=== PATIENT | male | born 1995 | race American Indian/Alaskan Native ===

== ENCOUNTER 2016-08-08 01:20 | Inpatient (IN) | payer MEDICAID ==
--- NOTE | 2016-08-08 02:13 | ED PDOC ---
Arrival/HPI - General Chief Complaint: Psychiatric Evaluation Time Seen by Provider: 08/08/16 01:49 Historian: Patient - History of Present Illness Narrative History of Present Illness (Text): 08/08/16 02:13 Bryan Ray is a 21 year old male, whose past medical history includes paranoid schizophrenia, who presents to the Emergency department complaining of paranoia. Patient states he has been feeling increasingly paranoid lately, but is unable to elaborate as to why. Patient states is supposed to be taking Zyprexa, but states he has not taken it in over 1 year. Patient denies any suicidal ideation, homicidal ideation, auditory/visual hallucinations, fever, chills, chest pain, shortness of breath, nausea, vomiting, diarrhea, urinary symptoms, back pain, neck pain, headache, dizziness, or any other complaints. Symptom Onset: Gradual Symptom Course: Unchanged Activities at Onset: Light Context: Home Past Medical History - Provider Review Nursing Documentation Reviewed: Yes - Psychiatric Hx Psychophysiologic Disorder: Yes Hx Schizophrenia: Yes (paranoid) Hx Substance Use: No Family/Social History - Physician Review Nursing Documentation Reviewed: Yes Family/Social History: No Known Family HX Smoking Status: Never Smoked Hx Alcohol Use: No Hx Substance Use: No Allergies/Home Meds Allergies/Adverse Reactions: Allergies No Known Allergies Allergy (Verified 08/08/16 01:30) Home Medications: Home Meds Medication Instructions Recorded Confirmed OLANZapine [Zyprexa] 08/08/16 Review of Systems - Physician Review All systems were reviewed & negative as marked: Yes - Review of Systems Constitutional: Normal. absent: Fevers Eyes: Normal ENT: Normal Respiratory: Normal. absent: SOB, Cough Cardiovascular: Normal. absent: Chest Pain Gastrointestinal: Normal. absent: Abdominal Pain, Diarrhea, Nausea, Vomiting Genitourinary Male: Normal. absent: Dysuria, Frequency, Hematuria, Urinary Output Changes Musculoskeletal: Normal. absent: Back Pain, Neck Pain Skin: Normal. absent: Rash Neurological: Normal. absent: Headache, Dizziness Endocrine: Normal Hemo/Lymphatic: Normal Psychiatric: Normal. absent: Suicidal Ideation, Other ((-)homicidal ideation, ( -)halluncinations) Physical Exam Vital Signs Reviewed: Yes Vital Signs Temp Pulse Resp BP Pulse Ox 08/08/16 02:49 99.0 F 94 H 16 150/82 100 Temperature: Afebrile Blood Pressure: Normal Pulse: Regular Respiratory Rate: Normal Appearance: Positive for: Well-Appearing, Non-Toxic, Comfortable Pain Distress: None Mental Status: Positive for: Alert and Oriented X 3 - Systems Exam Head: Present: Atraumatic, Normocephalic Pupils: Present: PERRL Extroacular Muscles: Present: EOMI Conjunctiva: Present: Normal Mouth: Present: Moist Mucous Membranes Neck: Present: Normal Range of Motion Respiratory/Chest: Present: Clear to Auscultation, Good Air Exchange. No: Respiratory Distress, Accessory Muscle Use Cardiovascular: Present: Regular Rate and Rhythm, Normal S1, S2. No: Murmurs Abdomen: Present: Normal Bowel Sounds. No: Tenderness, Distention, Peritoneal Signs Back: Present: Normal Inspection Upper Extremity: Present: Normal Inspection. No: Cyanosis, Edema Lower Extremity: Present: Normal Inspection. No: Edema Neurological: Present: GCS=15, CN II-XII Intact, Speech Normal Skin: Present: Warm, Dry, Normal Color. No: Rashes Psychiatric: Present: Alert, Oriented x 3, Normal Insight, Normal Concentration Medical Decision Making ED Course and Treatment: 08/08/16 02:13 Impression: 21 year old male complaining of paranoia. Plan: -- EKG -- Chest X-ray -- Labs, alcohol level, lipase -- Urinalysis, urine drug screen -- Reassess and disposition Progress Notes: Reviewed EKG, sinus tachycardia at [address] LVH. Non-specific ST/T wave changes. Normal intervals. Normal axis. 08/08/16 04:17 Labs showing CPK > 6800 c/w rhabdomyolysis - unable to clear medically. 08/08/16 06:[address] Espinoza for admission to the hospitalist service. - Lab Interpretations Lab Results: 08/08/16 02:50 08/08/16 02:50 Lab Results 08/08/16 03:10: Urine Color Yellow, Urine Appearance Sl cloudy, Urine pH 6.0, Ur Specific [place] >= 1.030, Urine Protein Trace H, Urine Glucose (UA) Negative , Urine Ketones 15 H, Urine Blood Negative, Urine Nitrate Negative, Urine Bilirubin Negative, Urine Urobilinogen 0.2, Ur Leukocyte Esterase Negative, Urine RBC 0 - 2, Urine WBC 0 - 2, Ur Epithelial Cells 0 - 2, Urine Bacteria Rare , Urine Other Mucus, Urine Opiates Screen Negative, Urine Methadone Screen Negative, Ur Barbiturates Screen Negative, Ur Phencyclidine Scrn Negative, Ur Amphetamines Screen Negative, U Benzodiazepines Scrn Negative, U Oth Cocaine Metabols Negative, U Cannabinoids Screen Negative 08/08/16 02:50: WBC 10.7, RBC 4.63, Hgb 14.6, Hct 41.3 L, MCV 89.2, MCH 31.5, MCHC 35.4, RDW 12.7, Plt Count 229, MPV 10.7, Gran % 73.7 H, Lymph % (Auto) 18.8 L, [place] % (Auto) 6.4 H, Eos % (Auto) 0.9 L, Baso % (Auto) 0.2, Gran # 7.89 H, Lymph # 2.0, [place] # 0.7 H, Eos # 0.1, Baso # 0.02, Sodium 143, Potassium 4.0 , Chloride 106, Carbon Dioxide 23, Anion Gap 18, BUN 21, Creatinine 1.1, Est GFR ( Amer) > 60, Est GFR (Non-Af Amer) > 60, Random Glucose 89, Calcium 9.4, Total Bilirubin 0.9, AST 139 H, ALT 69 H, Alkaline Phosphatase 59, Total Creatine Kinase 6814 H, CK-MB (CK-2) 10.6 H, CK-MB (CK-2) % 0.2 L, Total Protein 7.7, Albumin 4.3, Globulin 3.4, Albumin/Globulin Ratio 1.3, Lipase 120, Alcohol, Quantitative < 10 I have reviewed the lab results: Yes - RAD Interpretation Radiology Orders: 08/08/16 01:50 CHEST PORTABLE [RAD] Stat [employer] Professor: ED Physician - EKG Interpretation Interpreted by ED Physician: Yes Type: 12 lead EKG - Medication Orders Current Medication Orders: Sodium Chloride (Sodium Chloride 0.9%) 2,000 mls @ 999 mls/hr IV .Q2H1M STA Stop: 08/08/16 08:21 Discontinued Medications Ziprasidone (Geodon Inj) 10 mg IM STAT STA PRN Reason: Protocol Stop: 08/08/16 04:18 Last Admin: 08/08/16 04:39 Dose: 10 MG Comments: Behavioural Document 08/08/16 04:39 TA (Rec: 04/13/17 04:40 TA [facility] [id number]) Maintenance Maintenance Dose No Nonmedicinal Nonmedicinal Interventions Redirect Behavior Behavior for Medication: Hallucinations/paranoid/ delusions/extreme fear IM Administration Charges Document 08/08/16 04:39 TA (Rec: 08/08/16 04:40 TA [facility] [id number]) Injection Site MAR Injection Site Left Deltoid Charges for Administration # of IM Administrations 1 - Scribe Statement The provider has reviewed the documentation as recorded by the Leobardo De La Vega Provider Attestation: All medical record entries made by the Elliotiblisa were at my direction and personally dictated by me. I have reviewed the chart and agree that the record accurately reflects my personal performance of the history, physical exam, medical decision making, and the department course for this patient. I have also personally directed, reviewed, and agree with the discharge instructions and disposition. Disposition/Present on Arrival - Present on Arrival Any Indicators Present on Arrival: No History of DVT/PE: No History of Uncontrolled Diabetes: No Urinary Catheter: No History of Decub. Ulcer: No History Surgical Site Infection Following: None - Disposition Have Diagnosis and Disposition been Completed?: Yes Diagnosis: Rhabdomyolysis, Paranoid schizophrenia Disposition: HOSPITALIZED Disposition Time: 06:30 Patient Plan: Admission Condition: FAIR
[2016-08-08 02:50] VITALS: O2SAT 100
[2016-08-08 02:57] LABS: ADD MANUAL DIFF? NO
[2016-08-08 03:03] LABS: BASO # 0.02 K/mm3 (0.0-2.0); BASO % 0.2 % (0.0-3.0); EOS # 0.1 (0.0-0.7); EOS % 0.9 % (1.5-5.0); GRAN # 7.89 (1.4-6.5); GRAN % 73.7 % (50.0-68.0); HEMATOCRIT 41.3 % (42.0-52.0); LYMPH % 18.8 % (22.0-35.0); MEAN CELL VOLUME 89.2 fL (80.0-105.0); MEAN CORPUSCULAR HEMOGLOBIN 31.5 pg (25.0-35.0); MEAN CORPUSCULAR HGB CONC 35.4 g/dl (31.0-37.0); MEAN PLATELET VOLUME 10.7 fl (7.0-11.0); MONO # 0.7 (0.1-0.6); MONO % 6.4 % (1.0-6.0); PLATELET COUNT 229 10^3/uL (120.0-450.0); RED CELL DISTRIBUTION WIDTH 12.7 % (11.5-14.5); WHITE BLOOD COUNT 10.7 10^3/ul (4.5-11.0)
[2016-08-08 03:19] LABS: ALB/GLOB RATIO 1.3 (1.1-1.8); ALKALINE PHOSPHATASE 59 U/L (38-133); ALT/SGPT 69 U/L (7-56); AST/SGOT 139 U/L (15-59); BILIRUBIN,TOTAL 0.9 mg/dL (0.2-1.3); BLOOD UREA NITROGEN 21 mg/dL (7-21); CALCIUM 9.4 mg/dL (8.4-10.5); CARBON DIOXIDE 23 mmol/L (21-33); CHLORIDE 106 mmol/L (95-110); GFR AFRICAN-AMERICAN > 60; GLUCOSE,RANDOM 89 mg/dL (70-110); LIPASE 120 U/L (23-300); SODIUM 143 mmol/L (132-148); TOTAL PROTEIN 7.7 g/dL (5.8-8.3)
[2016-08-08 03:36] LABS: URINE BILIRUBIN NEGATIVE (NEGATIVE); URINE BLOOD NEGATIVE (NEGATIVE); URINE GLUCOSE (UA) NEGATIVE (NEGATIVE); URINE KETONE 15 mg/dL (NEGATIVE); URINE LEUKOCYTE ESTERASE NEGATIVE Leu/uL (NEGATIVE); URINE PROTEIN TRACE mg/dL (<30 mg/dL); URINE UROBILINOGEN 0.2 E.U./dL (<1 E.U./dL)
[2016-08-08 04:03] LABS: URINE APPEARANCE SL CLOUDY (CLEAR); URINE COLOR YELLOW (YELLOW)
[2016-08-08 04:06] LABS: URINE BACTERIA RARE (NEG); URINE EPITHELIAL CELLS 0 - 2 /hpf (0-5); URINE RBC 0 - 2 /hpf (0-2); URINE WBC 0 - 2 /hpf (0-6)
[2016-08-08] MEDS ORDERED: Sodium Chloride 0.9% 2,000 ML IV STA (06:21)
--- NOTE | 2016-08-08 08:03 | CP.PCM.HP ---
<Gaurav Carey - Last Filed: 08/08/16 16:15> History of Present Illness - History of Present Illness History of Present Illness: Patient is a 21 y/o M with PMHx of paranoid schizophrenia who presented to the ED with complaint of paranoia. He states he was treated at [facility] [place] [place] and normally takes Zyprexa for his paranoia but has not taken it for 3-4 days. He says his paranoia and auditory hallucinations started again about 2 days ago. He states he recognizes multiple voices as family members and that they "tell me to get help." He reports not eating much or drinking much water. He denies any alcohol, tobacco, or substance abuse. He Also denies any SI/HI, visual hallucinations, fever, chills, chest pain, SOB, nausea, vomiting, or diarrhea. PMD: None Psychiatrist: Dr. Casas Medical hx: paranoid schizophrenia Surgical hx: none Allergies: NKDA Social hx: lives with family, denies alcohol tobacco or drug use Family hx: DM, HTN Present on Admission - Present on Admission Any Indicators Present on Admission: No Review of Systems - Constitutional Constitutional: absent: Chills, Fever - EENT Eyes: absent: Change in Vision Ears: absent: Decreased Hearing Nose/Mouth/Throat: absent: Dysphagia, Neck Mass - Cardiovascular Cardiovascular: absent: Chest Pain, Dyspnea - Respiratory Respiratory: absent: Cough, Dyspnea - Gastrointestinal Gastrointestinal: absent: Abdominal Pain, Constipation, Diarrhea, Nausea, Vomiting - Genitourinary Genitourinary: absent: Dysuria - Musculoskeletal Musculoskeletal: absent: Back Pain, Neck Pain, Numbness, Tingling - Integumentary Integumentary: absent: Rash, Wounds - Neurological Neurological: absent: Headaches, Vertigo, Weakness - Psychiatric Psychiatric: Auditory Hallucinations, Paranoia. absent: Homicidal Ideation, Suicidal Ideation, Visual Hallucinations - Endocrine Endocrine: absent: Change in Body Appearance Past Patient History - Infectious Disease Hx of Infectious Diseases: None - Tetanus Immunizations Tetanus Immunization: Unknown - Past Medical History & Family History Past Medical History?: Yes - Past Social History Smoking Status: Never Smoked Alcohol: None Drugs: Denies Home Situation {Lives}: With Family - CARDIAC Hx Cardiac Disorders: No Hx Hypertension: No - PULMONARY Hx Tuberculosis: No - NEUROLOGICAL HX Cerebrovascular Accident: No Hx Seizures: No - HEMATOLOGICAL/ONCOLOGICAL Hx Cancer: No Hx Human Immunodeficiency Virus (HIV): No - GENITOURINARY/GYNECOLOGICAL Hx Sexually Transmitted Disorders: No - PSYCHIATRIC Hx Psychophysiologic Disorder: Yes Hx Schizophrenia: Yes (paranoid) Hx Substance Use: No Meds Allergies/Adverse Reactions: Allergies Allergy/AdvReac Type Severity Reaction Status Date / Time No Known Allergies Allergy Verified 08/08/16 01:30 Physical Exam - Constitutional Appears: No Acute Distress, Other (responding to command hallucinations) Additional comments: tall and thin with large hands and fingers - Head Exam Head Exam: ATRAUMATIC, NORMOCEPHALIC - Eye Exam Eye Exam: EOMI, Normal appearance, PERRL. absent: Conjunctival injection, Scleral icterus Pupil Exam: NORMAL ACCOMODATION, PERRL - ENT Exam ENT Exam: Mucous Membranes Moist. absent: Normal Oropharynx (poor dentition) - Neck Exam Neck exam: Positive for: Normal Inspection. Negative for: Tenderness, Thyromegaly - Respiratory Exam Respiratory Exam: Clear to Auscultation Bilateral, NORMAL BREATHING PATTERN. absent: Rales, Rhonchi, Wheezes - Cardiovascular Exam Cardiovascular Exam: REGULAR RHYTHM, +S1, +S2. absent: Gallop, Rubs, Systolic Murmur - GI/Abdominal Exam GI & Abdominal Exam: Normal Bowel Sounds, Soft. absent: Distended, Rigid, Tenderness - Extremities Exam Extremities exam: Positive for: normal capillary refill, pedal pulses present. Negative for: normal inspection (long thin extremities and phalanges), tenderness - Back Exam Back exam: NORMAL INSPECTION. absent: rash noted, tenderness - Neurological Exam Neurological exam: Alert, CN II-XII Intact, Oriented x3 - Psychiatric Exam Psychiatric exam: Flat Affect Additional comments: responding to internal stimuli, tilts head to listen to voices - Skin Skin Exam: Dry, Intact, Warm Results - Vital Signs Recent Vital Signs: Last Vital Signs Temp 99.0 F 08/08/16 02:49 Pulse 94 H 08/08/16 02:49 Resp 16 08/08/16 02:49 BP 150/82 08/08/16 02:49 Pulse Ox 100 08/08/16 02:49 - Labs Result Diagrams: 08/08/16 02:50 08/08/16 02:50 Assessment & Plan - Assessment and Plan (Free Text) Assessment: 21 y/o M with pmhx of paranoid schizophrenia presents with paranoia and auditory hallucinations. Found to have elevated liver enzymes and creatinine kinase. Plan: 1) Paranoid schizophrenia * Psychiatry consulted, help appreciated * Started on Risperdal 0.25mg PO AMHS * Ativan 0.25mg AMHS * Geodon 10mg IM for agitation- 1 dose given in ER * 1:1 sitter 2) Rhabdomyolysis * Initial TCK 6814 * Started on IVF hydration of 150mls/ hr * on telemetry * monitor electrolytes * recheck in AM 3) Transaminitis * possibly medication induced * hepatitis panel ordered * possibly due to dehydration * recheck in AM 4) PPX: * Zofran * Protonix * Ibuprofen Assessment and plan discussed with attending physician. <Nasima Resendiz - Last Filed: 08/08/16 17:21> Results - Vital Signs Recent Vital Signs: Last Vital Signs Temp 99.0 F 08/08/16 02:49 Pulse 94 H 08/08/16 02:49 Resp 20 08/08/16 10:41 BP 150/82 08/08/16 02:49 Pulse Ox 100 08/08/16 02:49 - Labs Result Diagrams: 08/08/16 02:50 08/08/16 02:50 Labs: Laboratory Results - last 24 hr 08/08/16 07:00 Hepatitis A IgM Ab Negative Hep Bs Antigen Negative Hep B Core IgM Ab Negative Hepatitis C Antibody Negative Attending/Attestation - Attestation I have personally seen and examined this patient.: Yes I have fully participated in the care of the patient.: Yes I have reviewed all pertinent clinical information: Yes Notes (Text): 08/08/16 17:19 21 year old male with past medical history of paranoid schizophrenia who presents with complaint of auditory hallucinations. He was found to have rhabdomyolysis and transaminitis. Continue with iv fluids. Monitor electrolytes and LFTs closely. Hepatitis panel is ordered. Psychiatry evaluation was appreciated; started on risperdal and ativan. Will repeat labs in AM. Nasima Resendiz MD Hospitalist.
--- NOTE | 2016-08-08 09:26 | RAD ---
HISTORY: psych COMPARISON: No prior. FINDINGS: LUNGS: No active pulmonary disease. PLEURA: No significant pleural effusion identified, no pneumothorax apparent. CARDIOVASCULAR: Normal. OSSEOUS STRUCTURES: No significant abnormalities. VISUALIZED UPPER ABDOMEN: Normal. OTHER FINDINGS: None. IMPRESSION: No active disease.
[2016-08-08] MEDS: Sodium Chloride 0.9% 1,000 ML IV SCH ×2 (10:18→18:51)
[2016-08-08] MEDS: Pantoprazole 40 mg EC Tab PO SCH (10:18)
[2016-08-08 10:51] VITALS: RESP 20
[2016-08-08 10:54] VITALS: BMI 20.5
--- NOTE | 2016-08-08 11:31 | CARD ---
APPROVED REPORT EKG Measurement Heart [id number] [place] [id number] <Conclusion> Sinus tachycardia RVCD LVH by voltage may be a normal variant
--- NOTE | 2016-08-08 14:02 | CON ---
DATE: 08/08/2016 The patient is a 21-year-old male who has a history of paranoid schizophrenia, as we ll as prior psychiatric hospitalizations, though none noted at this facility, who presented to the Em ergency Room on 08/08/2016, early this morning, reporting increased paranoia. The patient was seen by overnight psychiatric nursing aide who recommended that the patient be hospitalized for his paranoia, a s he ____ thought-blocked and guarded. However, the patient was reluctant to sign in. During this t javier, his laboratory results returned and demonstrated markedly elevated total creatine kinase of 6814 . The patient was actually medically admitted for rhabdomyolysis. Etiology of the rhabdomyolysis is unclear at this time to this provider. However, I was requested to follow up on the patient due to his psychiatric symptoms. I met with the patient at bedside in the Emergency Room, and the patient appears to be guarded, inter adelita preoccupied, though superficially, cooperative. It was necessary to delicately review his hist ory and symptoms with him, as he did appear to be paranoid. He was not agitated. He did not appear to self-escalate, and he appeared to be agreeable to psychiatric management as well as medical manage ment. He told me that he came to the Emergency Room to get help, indicated that he felt like that he was hurting his family because of "the things that I do." When asked to elaborate, he indicates cj t his family was scared for him because of his behavior such as pacing, which generally gets his fami ly upset. He does not feel that his family is angry at him or trying to harm him, and indicates that he is here to receive help because he feels like that he is "hurting them with the things that I do. " The patient reports hallucinations, vague voices, cannot distinguish what they are saying, but he den ies having any command-type hallucinations. He denies any visual hallucinations. Regarding paranoia , he is agreeable. He indicates that he does have paranoia, but does not want to elaborate on this, does not feel like he is being persecuted in the Emergency Room, feels that he safe in the staff care . He denies having any thoughts to hurt others or himself. Presently, he does not feel depressed. He feels "okay." Does not appear to be actively hallucinating at this time, but as noted, he is guar ded and internally preoccupied, and his insight is considered to be poor. Judgment is considered to be fair. SOCIAL HISTORY: The patient was born and raised in [place]. He is single. He has no children. He lives with his mother. The patient reported he graduated high school. He is unemployed. He maribeth es any history of drug or alcohol issues. Denies ever being arrested. PSYCHIATRIC HISTORY: Regarding his psychiatric history, he indicates that he had been psychiatricall y hospitalized. However, "it has been a while." The patient reports his last hospitalization was 1- 2 years ago, and he has not been taking any medications since then. The patient reports a history of being treated with Zyprexa and Risperdal in the past. However, again, the patient states "it has be en a while." He denies history of suicide attempt. MEDICATIONS: Include ibuprofen 400 mg p.o. q. 6 p.r.n., Zofran 4 mg IV push q.6 p.r.n., Protonix 40 mg daily, and Geodon 10 mg IM q. 6 p.r.n. The patient received only 1 IM dose on 08/08 at 4:00 a.m. t deneen. VITAL SIGNS: Reviewed, and at 2:49 a.m., they were 99, 94, ____/82, and 16. LABORATORIES: Reviewed. CBC was generally within normal limits. There are no major derangements in white blood cell count, hemoglobin and hematocrit except for a mildly decreased hematocrit of 41.3. Platelets were within normal limits at 229. Chemistry profile was normal. Notably, LFTs showed an elevated AST of 139, ALT of 69. Total creatinine kinase is 6814. CK2 is 10.6. It is elevated. CK2 percent is 0.2, which is considered low. His UDS was negative. Urine showed trace protein. Ketone s were elevated at ____. ASSESSMENT: The patient has paranoid schizophrenia, as well as rhabdomyolysis, unclear etiology. RECOMMENDATIONS: We will start Risperdal 0.25 mg p.o. a.m. and at bedtime, and Ativan 0.25 mg a.m. a nd at bedtime. These are very conservative doses, and in consideration of patient's rhabdomyolysis, we will titrate carefully as he tolerates these, and determine the patient's tolerability to his medi cations. Please note that Risperdal does have a small risk of rhabdomyolysis in and of itself of les s than 1%. In consideration of the current medical situation and incipient symptoms, it is just anot her reason why I am ____ for this time the patient's medication. Psychiatry will continue to follow up with the patient and monitor his mental status in reaction to the medications prescribed. Leroy Pastrana MD cc: [id number] TT: 08/08/2016 13:10:39 Confirmation # [id number] Dictation # [id number] jn
[2016-08-09] MEDS: Sodium Chloride 0.9% 1,000 ML IV SCH ×3 (00:44→13:43)
[2016-08-09 07:55] LABS: HEMATOCRIT 40.4 % (42.0-52.0); MEAN CELL VOLUME 90.4 fL (80.0-105.0); MEAN CORPUSCULAR HEMOGLOBIN 31.1 pg (25.0-35.0); MEAN CORPUSCULAR HGB CONC 34.4 g/dl (31.0-37.0); MEAN PLATELET VOLUME 10.2 fl (7.0-11.0); RED CELL DISTRIBUTION WIDTH 12.9 % (11.5-14.5); WHITE BLOOD COUNT 7.5 10^3/ul (4.5-11.0)
[2016-08-09 08:20] LABS: ALB/GLOB RATIO 1.2 (1.1-1.8); ALKALINE PHOSPHATASE 49 U/L (38-133); ALT/SGPT 67 U/L (7-56); AST/SGOT 60 U/L (15-59); BILIRUBIN,TOTAL 0.8 mg/dL (0.2-1.3); BLOOD UREA NITROGEN 11 mg/dL (7-21); CALCIUM 8.7 mg/dL (8.4-10.5); CARBON DIOXIDE 24 mmol/L (21-33); CHLORIDE 107 mmol/L (98-107); GFR AFRICAN-AMERICAN > 60; GLUCOSE,RANDOM 83 mg/dL (70-110); POTASSIUM 4.1 mmol/L (3.6-5.0); SODIUM 140 mmol/L (132-148); TOTAL PROTEIN 7.1 g/dL (5.8-8.3)
[2016-08-09 08:40] VITALS: BP 140/86; TEMP 97.4
[2016-08-09] MEDS: Pantoprazole 40 mg EC Tab PO SCH (09:14)
--- NOTE | 2016-08-09 13:12 | CP.PCM.PCO ---
Addendum Addendum: 08/09/16 13:11 Risperdal switched to Zyprexa Am and HS. Appreciate nursing f/u, nursing spoke with patient's mother who indicated that patient had a bad reaction to risperdal in the past. Patient may be transferred to the psychiatric unit provided he signs consent. Patient would greatly benefit from inpatient treatment at this time due to disorganziation and paranoia.
--- NOTE | 2016-08-09 13:35 | CON ---
DATE: 08/09/2016 HISTORY OF PRESENT ILLNESS: The patient is a 21-year-old male with a history of chronic para noid schizophrenia, which psychiatrist is following on the medical floor while he is being treated fo r rhabdomyolysis. The patient was admitted to the Emergency Room complaining of paranoia, he was not ed to be thought blocked and guarded and paranoid. This provider started Risperdal at a very low dos e of 0.25 b.i.d., which he has been tolerating. However, he continues to be paranoid with some thoug ht blocking when I meet with him at bedside. The patient is a little bit more spontaneous and his fo cus is improved. He appeared to be a little bit less vague and less lost during my conversation with him; however, it is still difficult making a productive and informative interview with him. He does admit to being paranoid. He does admit to hallucinations currently. He also admits to paranoia abo ut his family but cannot really elaborate about this. What he does do is deny having any thoughts to harm himself or harm his family. He is tolerating current medication and in regards delusions the p atient does admit to delusions but he is unable or will not localize his type of paranoia he has. He indicates that he is willing to work with this provider and take medications that I prescribe for [facility] and for his family's peace of mind as he reported that he wanted to come to the [facility] for help due to their concern about his behavior. His insight is poor but his judgment is fair. Impulse control is tenuously intact, although this provider does think that he is a little unpredict able due to his psychosis at this time and would recommend 1:1 to continue. Recent labs were reviewed, so were vital signs. MEDICATIONS: Reviewed. Current psychiatric medications include Risperdal 1 mg a.m. and at bedtime, Geodon 10 mg IM q. 6 p.r.n. and Ativan total 0.25 mg a.m. and at bedtime. ASSESSMENT: Chronic paranoid schizophrenia symptomatic. RECOMMENDATIONS: Will continue Risperdal 1 mg a.m. and at bedtime and increase Ativan to 0.5 mg a.m. and at bedtime to help patient with thought blocking at this time. Continue Geodon 10 mg IM q. 6 ho urs p.r.n. and psychiatry will continue to follow up patient's mental status and monitor his psychoti c symptoms while he is medically hospitalized. I will also try to elicit patient's cooperation for rachel manzanares to the psychiatric unit once he is medically cleared. However, at this time, there are no ychiatric beds available. If the patient is unwilling to sign in, I would recommend a screening for patient once he is medically cleared if necessary. Leroy Pastrana MD cc: [id number] TT: 08/09/2016 13:34:17 Confirmation # [id number] Dictation # [id number] jn
[2016-08-09 15:13] VITALS: PULSE 81
--- NOTE | 2016-08-09 19:06 | CP.PCM.DIS ---
<Gaurav Carey - Last Filed: 08/10/16 06:29> Provider - Provider Date of Admission: 08/08/16 06:27 Attending physician: Nasima Resendiz MD Consults: Dr. Leroy Pastrana Time Spent in preparation of Discharge (in minutes): 45 Hospital Course - Lab Results Lab Results: Most Recent Lab Values WBC 7.5 10^3/ul (4.5-11.0) D 08/09/16 07:00 RBC 4.47 10^6/uL (3.5-6.1) 08/09/16 07:00 Hgb 13.9 gm/dL (14.0-18.0) L 08/09/16 07:00 Hct 40.4 % (42.0-52.0) L 08/09/16 07:00 MCV 90.4 fL (80.0-105.0) 08/09/16 07:00 MCH 31.1 pg (25.0-35.0) 08/09/16 07:00 MCHC 34.4 g/dl (31.0-37.0) 08/09/16 07:00 RDW 12.9 % (11.5-14.5) 08/09/16 07:00 Plt Count 220 10^3/uL (120.0-450.0) 08/09/16 07:00 MPV 10.2 fl (7.0-11.0) 08/09/16 07:00 Gran % 73.7 % (50.0-68.0) H 08/08/16 02:50 Lymph % (Auto) 18.8 % (22.0-35.0) L 08/08/16 02:50 [place]ink % (Auto) 6.4 % (1.0-6.0) H 08/08/16 02:50 Eos % (Auto) 0.9 % (1.5-5.0) L 08/08/16 02:50 Baso % (Auto) 0.2 % (0.0-3.0) 08/08/16 02:50 Gran # 7.89 (1.4-6.5) H 08/08/16 02:50 Lymph # 2.0 (1.2-3.4) 08/08/16 02:50 [place]ink # 0.7 (0.1-0.6) H 08/08/16 02:50 Eos # 0.1 (0.0-0.7) 08/08/16 02:50 Baso # 0.02 K/mm3 (0.0-2.0) 08/08/16 02:50 Sodium 140 mmol/L (132-148) 08/09/16 07:00 Potassium 4.1 mmol/L (3.6-5.0) 08/09/16 07:00 Chloride 107 mmol/L (98-107) 08/09/16 07:00 Carbon Dioxide 24 mmol/L (21-33) 08/09/16 07:00 Anion Gap 13 (10-20) 08/09/16 07:00 BUN 11 mg/dL (7-21) 08/09/16 07:00 Creatinine 0.9 mg/dL (0.5-1.4) 08/09/16 07:00 Est GFR ( Amer) > 60 08/09/16 07:00 Est GFR (Non-Af Amer) > 60 08/09/16 07:00 Random Glucose 83 mg/dL (70-110) 08/09/16 07:00 Calcium 8.7 mg/dL (8.4-10.5) 08/09/16 07:00 Total Bilirubin 0.8 mg/dL (0.2-1.3) 08/09/16 07:00 AST 60 U/L (15-59) H 08/09/16 07:00 ALT 67 U/L (7-56) H 08/09/16 07:00 Alkaline Phosphatase 49 U/L (38-133) 08/09/16 07:00 Total Creatine Kinase 1376 U/L (35-230) H 08/09/16 07:25 CK-MB (CK-2) 5.9 ng/mL (0.0-3.6) H 08/09/16 07:25 CK-MB (CK-2) % 0.4 % (2.5-3.0) L 08/09/16 07:25 Total Protein 7.1 g/dL (5.8-8.3) 08/09/16 07:00 Albumin 3.9 g/dL (3.0-4.8) 08/09/16 07:00 Globulin 3.2 gm/dL 08/09/16 07:00 Albumin/Globulin Ratio 1.2 (1.1-1.8) 08/09/16 07:00 Lipase 120 U/L (23-300) 08/08/16 02:50 Urine Color Yellow (YELLOW) 08/08/16 03:10 Urine Appearance Sl cloudy (CLEAR) 08/08/16 03:10 Urine pH 6.0 (4.7-8.0) 08/08/16 03:10 Ur Specific [place] >= 1.030 (1.005-1.035) 08/08/16 03:10 Urine Protein Trace mg/dL (<30 mg/dL) H 08/08/16 03:10 Urine Glucose (UA) Negative mg/dL (NEGATIVE) 08/08/16 03:10 Urine Ketones 15 mg/dL (NEGATIVE) H 08/08/16 03:10 Urine Blood Negative (NEGATIVE) 08/08/16 03:10 Urine Nitrate Negative (NEGATIVE) 08/08/16 03:10 Urine Bilirubin Negative (NEGATIVE) 08/08/16 03:10 Urine Urobilinogen 0.2 E.U./dL (<1 E.U./dL) 08/08/16 03:10 Ur Leukocyte Esterase Negative Zeferino/uL (NEGATIVE) 08/08/16 03:10 Urine RBC 0 - 2 /hpf (0-2) 08/08/16 03:10 Urine WBC 0 - 2 /hpf (0-6) 08/08/16 03:10 Ur Epithelial Cells 0 - 2 /hpf (0-5) 08/08/16 03:10 Urine Bacteria Rare (NEG) 08/08/16 03:10 Urine Other Mucus 08/08/16 03:10 Urine Opiates Screen Negative (NEGATIVE) 08/08/16 03:10 Urine Methadone Screen Negative (NEGATIVE) 08/08/16 03:10 Ur Barbiturates Screen Negative (NEGATIVE) 08/08/16 03:10 Ur Phencyclidine Scrn Negative (NEGATIVE) 08/08/16 03:10 Ur Amphetamines Screen Negative (NEGATIVE) 08/08/16 03:10 U Benzodiazepines Scrn Negative (NEGATIVE) 08/08/16 03:10 U Oth Cocaine Metabols Negative (NEGATIVE) 08/08/16 03:10 U Cannabinoids Screen Negative (NEGATIVE) 08/08/16 03:10 Alcohol, Quantitative < 10 mg/dL (0-10) 08/08/16 02:50 Hepatitis A IgM Ab Negative (NEGATIVE) 08/08/16 07:00 Hep Bs Antigen Negative (NEGATIVE) 08/08/16 07:00 Hep B Core IgM Ab Negative (NEGATIVE) 08/08/16 07:00 Hepatitis C Antibody Negative (NEGATIVE) 08/08/16 07:00 - Hospital Course Hospital Course: HPI: Patient is a 21 y/o M with PMHx of paranoid schizophrenia who presented to the ED with complaint of paranoia. He states he was treated at [facility] and normally takes Zyprexa for his paranoia but has not taken it for 3-4 days. He says his paranoia and auditory hallucinations started again about 2 days ago. He states he recognizes multiple voices as family members and that they "tell me to get help." He reports not eating much or drinking much water. He denies any alcohol, tobacco, or substance abuse. He Also denies any SI/HI, visual hallucinations, fever, chills, chest pain, SOB, nausea, vomiting, or diarrhea. Course: Patient is a 21 y/o AA M who presented with complaint of paranoia. On initial labs he was found to have elevated liver enzymes and elevated creatine kinase of 6814. Urinalysis showed trace proteins and ketones and toxicology negative for illegal substances. Due to elevated LFT's a hepatitis panel was performed which was negative. A chest x-ray was performed which showed no active disease. An EKG ws performed showing sinus tachycardia with LVH by voltage and RVCD. He was started on IV fluid hydration and psychiatry was consulted. He was placed on Zypexa, Risperdal, Geodone and Ativan. Repeat total CK decreased to 1376 and his psychosis improved. He was tolerating PO fluids and eating adequately. He was determined medically stable for discharge to voluntary psychiatry unit. He was advised to continue to drinking plenty of water, participate in therapy sessions, take medications as prescribed, and refrain from alcohol, tobacco, or drug use. He was discharged to psychiatry unit. This is a brief summary of the patient's stay. For more information, please see his full chart. - Date & Time of H&P Date of H&P: 04/13/17 Time of H&P: 08:02 Discharge Exam - Head Exam Head Exam: ATRAUMATIC, NORMOCEPHALIC - Eye Exam Eye Exam: EOMI, Normal appearance, PERRL. absent: Conjunctival injection, Scleral icterus Pupil Exam: NORMAL ACCOMODATION, PERRL - ENT Exam ENT Exam: Mucous Membranes Moist. absent: Normal Oropharynx (poor dentition) - Neck Exam Neck exam: Normal Inspection - Respiratory Exam Respiratory Exam: NORMAL BREATHING PATTERN. absent: Rales, Rhonchi, Wheezes - Cardiovascular Exam Cardiovascular Exam: REGULAR RHYTHM, +S1, +S2. absent: Gallop, Rubs, Systolic Murmur - GI/Abdominal Exam GI & Abdominal Exam: Normal Bowel Sounds, Soft. absent: Distended, Tenderness - Extremities Exam Extremities exam: normal capillary refill, pedal pulses present Additional comments: long limbs and acromegally - Back Exam Back exam: NORMAL INSPECTION. absent: rash noted, tenderness - Neurological Exam Neurological exam: Alert, CN II-XII Intact, Oriented x3 - Psychiatric Exam Psychiatric exam: Flat Affect Additional comments: paranoia - Skin Skin Exam: Dry, Intact, Warm Discharge Plan - Follow Up Plan Condition: FAIR Disposition: DISCHARGE TO PSYCH HOSPITAL Instructions: Rhabdomyolysis (DC), Paranoid Personality Disorder (DC) Additional Instructions: Follow up with Dr Pastrana at in patient Psych. You are medically stable for discharge to voluntary psychiatry unit. Please continue to drinking plenty of water, participate in therapy sessions, take medications as prescribed, and refrain from alcohol, tobacco, or drug use. <Nasima Resendiz - Last Filed: 08/10/16 07:25> Provider - Provider Date of Admission: 08/08/16 06:27 Attending physician: Nasima Resendiz [place] Hospital Course - Lab Results Lab Results: Most Recent Lab Values WBC 7.5 10^3/ul (4.5-11.0) D 08/09/16 07:00 RBC 4.47 10^6/uL (3.5-6.1) 08/09/16 07:00 Hgb 13.9 gm/dL (14.0-18.0) L 08/09/16 07:00 Hct 40.4 % (42.0-52.0) L 08/09/16 07:00 MCV 90.4 fL (80.0-105.0) 08/09/16 07:00 MCH 31.1 pg (25.0-35.0) 08/09/16 07:00 MCHC 34.4 g/dl (31.0-37.0) 08/09/16 07:00 RDW 12.9 % (11.5-14.5) 08/09/16 07:00 Plt Count 220 10^3/uL (120.0-450.0) 08/09/16 07:00 MPV 10.2 fl (7.0-11.0) 08/09/16 07:00 Gran % 73.7 % (50.0-68.0) H 08/08/16 02:50 Lymph % (Auto) 18.8 % (22.0-35.0) L 08/08/16 02:50 [place] % (Auto) 6.4 % (1.0-6.0) H 08/08/16 02:50 Eos % (Auto) 0.9 % (1.5-5.0) L 08/08/16 02:50 Baso % (Auto) 0.2 % (0.0-3.0) 08/08/16 02:50 Gran # 7.89 (1.4-6.5) H 08/08/16 02:50 Lymph # 2.0 (1.2-3.4) 08/08/16 02:50 [place]ink # 0.7 (0.1-0.6) H 08/08/16 02:50 Eos # 0.1 (0.0-0.7) 08/08/16 02:50 Baso # 0.02 K/mm3 (0.0-2.0) 08/08/16 02:50 Sodium 140 mmol/L (132-148) 08/09/16 07:00 Potassium 4.1 mmol/L (3.6-5.0) 08/09/16 07:00 Chloride 107 mmol/L (98-107) 08/09/16 07:00 Carbon Dioxide 24 mmol/L (21-33) 08/09/16 07:00 Anion Gap 13 (10-20) 08/09/16 07:00 BUN 11 mg/dL (7-21) 08/09/16 07:00 Creatinine 0.9 mg/dL (0.5-1.4) 08/09/16 07:00 Est GFR ( Amer) > 60 08/09/16 07:00 Est GFR (Non-Af Amer) > 60 08/09/16 07:00 Random Glucose 83 mg/dL (70-110) 08/09/16 07:00 Calcium 8.7 mg/dL (8.4-10.5) 08/09/16 07:00 Total Bilirubin 0.8 mg/dL (0.2-1.3) 08/09/16 07:00 AST 60 U/L (15-59) H 08/09/16 07:00 ALT 67 U/L (7-56) H 08/09/16 07:00 Alkaline Phosphatase 49 U/L (38-133) 08/09/16 07:00 Total Creatine Kinase 1376 U/L (35-230) H 08/09/16 07:25 CK-MB (CK-2) 5.9 ng/mL (0.0-3.6) H 08/09/16 07:25 CK-MB (CK-2) % 0.4 % (2.5-3.0) L 08/09/16 07:25 Total Protein 7.1 g/dL (5.8-8.3) 08/09/16 07:00 Albumin 3.9 g/dL (3.0-4.8) 08/09/16 07:00 Globulin 3.2 gm/dL 08/09/16 07:00 Albumin/Globulin Ratio 1.2 (1.1-1.8) 08/09/16 07:00 Lipase 120 U/L (23-300) 08/08/16 02:50 Urine Color Yellow (YELLOW) 08/08/16 03:10 Urine Appearance Sl cloudy (CLEAR) 08/08/16 03:10 Urine pH 6.0 (4.7-8.0) 08/08/16 03:10 Ur Specific [place] >= 1.030 (1.005-1.035) 08/08/16 03:10 Urine Protein Trace mg/dL (<30 mg/dL) H 08/08/16 03:10 Urine Glucose (UA) Negative mg/dL (NEGATIVE) 08/08/16 03:10 Urine Ketones 15 mg/dL (NEGATIVE) H 08/08/16 03:10 Urine Blood Negative (NEGATIVE) 08/08/16 03:10 Urine Nitrate Negative (NEGATIVE) 08/08/16 03:10 Urine Bilirubin Negative (NEGATIVE) 08/08/16 03:10 Urine Urobilinogen 0.2 E.U./dL (<1 E.U./dL) 08/08/16 03:10 Ur Leukocyte Esterase Negative Zefer[place]/uL (NEGATIVE) 08/08/16 03:10 Urine RBC 0 - 2 /hpf (0-2) 08/08/16 03:10 Urine WBC 0 - 2 /hpf (0-6) 08/08/16 03:10 Ur Epithelial Cells 0 - 2 /hpf (0-5) 08/08/16 03:10 Urine Bacteria Rare (NEG) 08/08/16 03:10 Urine Other Mucus 08/08/16 03:10 Urine Opiates Screen Negative (NEGATIVE) 08/08/16 03:10 Urine Methadone Screen Negative (NEGATIVE) 08/08/16 03:10 Ur Barbiturates Screen Negative (NEGATIVE) 08/08/16 03:10 Ur Phencyclidine Scrn Negative (NEGATIVE) 08/08/16 03:10 Ur Amphetamines Screen Negative (NEGATIVE) 08/08/16 03:10 U Benzodiazepines Scrn Negative (NEGATIVE) 08/08/16 03:10 U Oth Cocaine Metabols Negative (NEGATIVE) 08/08/16 03:10 U Cannabinoids Screen Negative (NEGATIVE) 08/08/16 03:10 Alcohol, Quantitative < 10 mg/dL (0-10) 08/08/16 02:50 Hepatitis A IgM Ab Negative (NEGATIVE) 08/08/16 07:00 Hep Bs Antigen Negative (NEGATIVE) 08/08/16 07:00 Hep B Core IgM Ab Negative (NEGATIVE) 08/08/16 07:00 Hepatitis C Antibody Negative (NEGATIVE) 08/08/16 07:00 Attending/Attestation - Attestation I have personally seen and examined this patient.: Yes I have fully participated in the care of the patient.: Yes I have reviewed all pertinent clinical information, including history, physical exam and plan: Yes Notes (Text): 08/09/16 21 year old male with past medical history of paranoid schizophrenia who presented with complaint of auditory hallucinations. He was found to have rhabdomyolysis and transaminitis. He was started on iv fluids. His electrolytes were stable. His LFTs improved and hepatitis panel was negative. His CPK improved following day with IVF. He was encouraged on adequate hydration and fluid intake. He was seen by psychiatrist and started on zyprexa and ativan. He is agreeable to be transferred to inpatient psychiatry unit. We will follow him up in the unit as well. Nasima Resendiz MD Hospitalist.
[2016-08-09] MEDS ORDERED: OLANZapine 5 mg Disintegrating Tab PO SCH (22:00)
== END 2016-08-09 19:56 | DRG 430 ==
LOC: ED 01:20 → ERH 06:27 → 3RNO 09:28
PROVIDERS: ADMIT Internal Medicine; ATTEND Internal Medicine
DX: F20.0 Paranoid schizophrenia (principal); M62.82 Rhabdomyolysis; E86.0 Dehydration; F60.0 Paranoid personality disorder; Z82.49 Family history of ischemic heart disease and other diseases of the circulatory system; Z83.3 Family history of diabetes mellitus; R40.2412 Glasgow coma scale score 13-15, at arrival to emergency department; R74.0 Nonspecific elevation of levels of transaminase and lactic acid dehydrogenase [LDH]

== ENCOUNTER 2016-08-09 20:01 | Inpatient (IN) | payer MEDICAID ==
[2016-08-08 10:54] VITALS: BMI 20.5
[2016-08-09] MEDS ORDERED: Alum-Mag Hydrox-Simethicone Susp (30 mL) PO PRN (21:00)
[2016-08-09] MEDS ORDERED: Magnesium Hydroxide Susp 30 ml UD PO PRN (21:00)
[2016-08-10 08:28] LABS: CHOLESTEROL 106 mg/dL (130-200); GLUCOSE,FASTING 90 mg/dL (65-110)
--- NOTE | 2016-08-10 09:44 | PCM.PSYCH ---
Initial Psychiatric Evaluation - Initial Psychiatric Evaluation Type of Admission: Voluntary Legal Status: Capacity Chief Complaint (in patient's own words): "I need help" History of Present Illness and Precipitating Events: Patient is a 21-year-old single -[place] male with a history of paranoid schizophrenia, multiple psychiatric hospitalizations (though none noted at this facility) who presented to the emergency room on August 08, 2016 reporting increased paranoia. Patient was seen by overnight fill technician who recommended patient be hospitalized for paranoia as he was notably thought-blocked, guarded and paranoid. Patient refused to sign in for a voluntary admission and a screening was called. During this time his laboratory results returned which indicated markedly elevated total creatine kinase of 6814. Patient was admitted medically for rhabdomyolysis. Psychiatry followed patient on the medical floor for one day before patient was medically cleared and transferred to the psychiatric unit. During this time risperdal was discontinued as we received information from patient's mother indicating patient had a bad reaction to this medication. Patient demonstrated minimal improvement in his psychotic symptoms while he was in the medical floor however his insight improved as he was newly willing to sign in voluntarily for help with his paranoia. While patient was on the medical floor he reported hallucinations described as vague, indistinguishable voices. He denied any command type hallucinations. Regarding his paranoia patient was unable to clarify on this complaint. He was either unable to or did not want to elaborate on this particular symptom. Patient was notably thought-blocked guarded and internally preoccupied during my interviews. He was never agitated in the ER or on the medical floor. Did not appear to self escalate and was superficially agreeable to medical and psychiatric management while hospitalized. I reviewed recent notes and met with patient at bedside. Patient remains oriented to circumstances. He is superficially engaged and cooperative during questioning. Affect remains withdrawn, guarded and preoccupied. Notable thought blocking is present. Patient reports that he is feeling a little bit better and denies any recurrence of hallucinations or suicidal thoughts. This provider is not sure if this is true as patient appears to be minimizing his symptoms. Patient is not hopeless or suicidal and denies thoughts of harming others. Patient also denies having any paranoid thoughts including persecutory beliefs about staff or family. He doesn't appear to be responding to internal stimuli though seems quite odd and preoccupied during our meeting. Patient is tolerating his medications and denies any new discomfort or pain. He has been quiet and in good control on the unit. There were no behavioral issues overnight Social history Patient was born and raised in [place]. He's single and has no children. He lives with his mother. Patient reported he graduate high school. He is unemployed. He denies any history of drug or alcohol issues and denies ever being arrested Psychiatric history Patient reports that he has been psychiatrically hospitalized however indicate that it's been 1-2 years since his last hospitalization. Patient has not been taking any minute if I catch medication since then. Patient reports a history of treatment with risperdal and zyprexa in the past. While patient was on the medical floor, his mother informed nursing that patient had a negative reaction to risperdal in the past. Patient denies any history of suicide attempts. Current Medications: Active Medications Generic Name Dose Route Start Last Admin Trade Name Freq PRN Reason Stop Dose Admin Acetaminophen 650 mg 08/09/16 21:00 Tylenol 325mg Tab PO Q4H PRN Pain, Mild (1-3) Al Hydrox/Mg Hydrox/Simethicone 30 ml 08/09/16 21:00 Maalox Plus 30 Ml PO DAILY PRN Upset Stomach Lorazepam 0.5 mg 08/09/16 22:00 08/09/16 21:41 Ativan PO 0.5 mg [facility] PETRA Administration Protocol Magnesium Hydroxide 30 ml 08/09/16 21:00 Milk Of Magnesia PO DAILY PRN Constipation Olanzapine 5 mg 08/09/16 22:00 08/09/16 21:41 Zyprexa PO 5 mg [facility] PETRA Administration Protocol Past Psychiatric History - Past Psychiatric History Pertinent Medical Hx (Current Medical&Sleep Prob, Allergies): Allergies Allergy/AdvReac Type Severity Reaction Status Date / Time No Known Allergies Allergy Verified 08/09/16 20:59 OLANZapine [Zyprexa] 5 mg PO DAILY 08/08/16 risperiDONE 1 mg PO BID 08/09/16 Mental Status Examination - Affect Affect: Constricted, Blunted, Flat - Motor Activity Motor Activity: Calm - Reliability in Providing Information Reliability in Providing Information: Poor, due to alteration in thoughts - Speech Speech: Disorganized - Formal Thought Process Formal Thought Process: Hallucinations, Delusions, Paranoia, Loosening of associations - Hallucinations/Delusions Hallucinations: Auditory Delusions: Persecution - Obsessions/Compulsions Obsessions: No Compulsions: No - Cognitive Functions Orientation: Person, Place Sensorium: Alert Attention/Concentration: Easily distracted Abstract Thinking: [place] Estimate of Intelligence: Average Judgement: Imparied, as evidence by: Lack of insight into illness - Risk Risk: Diminished functioning DSM 5 DX - DSM 5 DSM 5 Diagnosis: Chronic Paranoid Schizophrenia - Recommended/Plan of Treatment Treatment Recommendations and Plan of Treatment: * Group, milieu and supportive tx * Awaiting medical f/u * Zyprexa 5 mg AM and HS for hallucinations and paranoia, titrate as needed * Ativan 0.5 mg AM and HS for catatonia & thought blocking, titrate as needed * Vitals reviewed and noted below: Selected Entries 08/10/16 06:00 Temperature 97.9 F Pulse Rate 57 L Respiratory 16 Rate Blood Pressure 84 Mean PSYCHIATRIC FLOOR LABS NOTED BELOW 08/10/16 07:30 Fasting Glucose 90 Triglycerides 41 Cholesterol 106 L LDL Cholesterol Direct 55 HDL Cholesterol 43 TSH 3rd Generation 0.86 MEDICAL FLOOR LABS 08/08/16 08/08/16 08/08/16 02:50 03:10 07:00 WBC 10.7 Hgb 14.6 Hct 41.3 L Plt Count 229 Sodium 143 Potassium 4.0 Chloride 106 Carbon Dioxide 23 Anion Gap 18 BUN 21 Creatinine 1.1 Est GFR ( Amer) > 60 Random Glucose 89 Calcium 9.4 Total Bilirubin 0.9 AST 139 H ALT 69 H Alkaline Phosphatase 59 Total Creatine Kinase 6814 H CK-MB (CK-2) 10.6 H CK-MB (CK-2) % 0.2 L Total Protein 7.7 Albumin 4.3 Globulin 3.4 Albumin/Globulin Ratio 1.3 Lipase 120 Urine Color Yellow Urine Appearance Sl cloudy Urine pH 6.0 Urine Protein Trace H Urine Glucose (UA) Negative Urine Ketones 15 H Urine Blood Negative Urine Nitrate Negative Urine Bilirubin Negative Ur Leukocyte Esterase Negative Urine Bacteria Rare Urine Opiates Screen Negative Urine Methadone Screen Negative Ur Barbiturates Screen Negative Ur Phencyclidine Scrn Negative Ur Amphetamines Screen Negative U Benzodiazepines Scrn Negative U Oth Cocaine Metabols Negative U Cannabinoids Screen Negative Alcohol, Quantitative < 10 Hepatitis A IgM Ab Negative Hep Bs Antigen Negative Hep B Core IgM Ab Negative Hepatitis C Antibody Negative 08/09/16 08/09/16 07:00 07:25 WBC 7.5 D Hgb 13.9 L Hct 40.4 L Plt Count Sodium 140 Potassium 4.1 Chloride 107 Carbon Dioxide 24 Anion Gap 13 BUN 11 Creatinine 0.9 Est GFR ( Amer) > 60 Random Glucose 83 Calcium 8.7 Total Bilirubin 0.8 AST 60 H ALT 67 H Alkaline Phosphatase Total Creatine Kinase 1376 H CK-MB (CK-2) 5.9 H CK-MB (CK-2) % 0.4 L Total Protein 7.1 Albumin 3.9 Globulin 3.2 Albumin/Globulin Ratio 1.2 Lipase Urine Color Urine Appearance Urine pH Urine Protein Urine Glucose (UA) Urine Ketones Urine Blood Urine Nitrate Urine Bilirubin Ur Leukocyte Esterase Urine Bacteria Urine Opiates Screen Urine Methadone Screen Ur Barbiturates Screen Ur Phencyclidine Scrn Ur Amphetamines Screen U Benzodiazepines Scrn U Oth Cocaine Metabols U Cannabinoids Screen Alcohol, Quantitative Hepatitis A IgM Ab Hep Bs Antigen Hep B Core IgM Ab Hepatitis C Antibody - Smoking Cessation Smoking Cessation Initiated: No
--- NOTE | 2016-08-10 10:24 | CP.PCM.CON ---
<Gaurav Carey - Last Filed: 08/10/16 13:51> History of Present Illness - History of Present Illness History of Present Illness: Patient is a 21 y/o M with PMHx of paranoid schizophrenia who presented to the hospital with complaint of paranoia. He was recently treated at [facility] [place] and normally takes Zyprexa for his paranoia but had not taken it for 3- 4 days. He says his paranoia and auditory hallucinations started again after not taking his medication. He recognizes multiple voices as family members and that they "tell me to get help." He reports not eating much or drinking much water. He was admitted to the hospital for paranoia and elevated creatinine which improved with IV fluid hydration. He was determined medically stable and transferred to inpatient psychiatry. Today he denies any SI/HI, visual hallucinations, fever, chills, chest pain, SOB, nausea, vomiting, or diarrhea. He reports little appetite and was encouraged to drink water. Review of Systems - Constitutional Constitutional: absent: Chills, Fever - EENT Eyes: absent: Change in Vision Ears: absent: Decreased Hearing Nose/Mouth/Throat: absent: Dry Mouth, Sore Throat - Cardiovascular Cardiovascular: absent: Chest Pain, Dyspnea - Respiratory Respiratory: absent: Cough, Dyspnea - Gastrointestinal Gastrointestinal: absent: Abdominal Pain, Constipation, Diarrhea, Nausea, Vomiting - Genitourinary Genitourinary: absent: Change in Urinary Stream, Dysuria - Musculoskeletal Musculoskeletal: absent: Back Pain, Numbness, Tingling - Integumentary Integumentary: absent: Lesions, Rash, Wounds - Neurological Neurological: absent: Numbness, Headaches, Weakness - Psychiatric Psychiatric: Auditory Hallucinations, Paranoia. absent: Suicidal Ideation, Visual Hallucinations - Endocrine Endocrine: absent: Change in Libido, Deepening of Voice - Hematologic/Lymphatic Hematologic: absent: Easy Bleeding Past Patient History - Infectious Disease Hx of Infectious Diseases: None - Tetanus Immunizations Tetanus Immunization: Unknown - Past Medical History & Family History Past Medical History?: Yes - Past Social History Smoking Status: Never Smoked Alcohol: None Drugs: Denies Home Situation {Lives}: With Family - CARDIAC Hx Cardiac Disorders: No Hx Hypertension: No - PULMONARY Hx Tuberculosis: No - NEUROLOGICAL HX Cerebrovascular Accident: No Hx Seizures: No - HEENT Hx HEENT Problems: No - RENAL Hx Chronic Kidney Disease: No - ENDOCRINE/METABOLIC Hx Endocrine Disorders: No - HEMATOLOGICAL/ONCOLOGICAL Hx Blood Disorders: No Hx Cancer: No Hx Human Immunodeficiency Virus (HIV): No - INTEGUMENTARY Hx Dermatological Problems: No - MUSCULOSKELETAL/RHEUMATOLOGICAL Hx Musculoskeletal Disorders: No Hx Falls: No - GASTROINTESTINAL Hx Gastrointestinal Disorders: No - GENITOURINARY/GYNECOLOGICAL Hx Genitourinary Disorders: No Hx Sexually Transmitted Disorders: No - PSYCHIATRIC Hx Physical Abuse: No Hx Schizophrenia: Yes - SURGICAL HISTORY Hx Surgeries: No - ANESTHESIA Hx Anesthesia: No Meds Allergies/Adverse Reactions: Allergies Allergy/AdvReac Type Severity Reaction Status Date / Time No Known Allergies Allergy Verified 08/09/16 20:59 - Medications Medications: Current Medications Acetaminophen (Tylenol 325mg Tab) 650 mg PO Q4H PRN PRN Reason: Pain, Mild (1-3) Al Hydrox/Mg Hydrox/Simethicone (Maalox Plus 30 Ml) 30 ml PO DAILY PRN PRN Reason: Upset Stomach Lorazepam (Ativan) 0.5 mg PO AMHS PETRA PRN Reason: Protocol Last Admin: 08/09/16 21:41 Dose: 0.5 mg Magnesium Hydroxide (Milk Of Magnesia) 30 ml PO DAILY PRN PRN Reason: Constipation Olanzapine (Zyprexa) 5 mg PO AMHS PETRA PRN Reason: Protocol Last Admin: 08/09/16 21:41 Dose: 5 mg Physical Exam - Constitutional Appears: Non-toxic, No Acute Distress, Other (tall, thin, with long phalanges) - Head Exam Head Exam: ATRAUMATIC, NORMOCEPHALIC - Eye Exam Eye Exam: EOMI, Normal appearance, PERRL - ENT Exam ENT Exam: Mucous Membranes Moist. absent: Normal Oropharynx (poor dentition) - Neck Exam Neck exam: Positive for: Normal Inspection. Negative for: Tenderness, Thyromegaly - Respiratory Exam Respiratory Exam: Clear to Auscultation Bilateral, NORMAL BREATHING PATTERN. absent: Rales, Rhonchi, Wheezes - Cardiovascular Exam Cardiovascular Exam: REGULAR RHYTHM, +S1, +S2. absent: Gallop, Rubs, Systolic Murmur - GI/Abdominal Exam GI & Abdominal Exam: Normal Bowel Sounds, Soft. absent: Tenderness - Extremities Exam Extremities exam: Positive for: normal capillary refill, normal inspection, pedal pulses present. Negative for: pedal edema, tenderness - Back Exam Back exam: NORMAL INSPECTION. absent: rash noted, tenderness - Neurological Exam Neurological exam: Alert, CN II-XII Intact, Oriented x3 - Psychiatric Exam Psychiatric exam: Flat Affect - Skin Skin Exam: Dry, Intact, Warm Results - Vital Signs Recent Vital Signs: Last Vital Signs Temp 97.9 F 08/10/16 06:00 Pulse 57 L 08/10/16 06:00 Resp 16 08/10/16 06:00 BP 116/69 08/10/16 06:00 Pulse Ox - Labs Labs: Laboratory Results - last 24 hr 08/10/16 07:30 Fasting Glucose 90 Triglycerides 41 Cholesterol 106 L LDL Cholesterol Direct 55 HDL Cholesterol 43 TSH 3rd Generation 0.86 Assessment & Plan - Assessment and Plan (Free Text) Assessment: 21 y/o AA M with pmhx of paranoid schizophrenia admitted to psychiatry unit for paranoia and auditory hallucinations. Plan: 1) Paranoid schizophrenia * management as per psychiatry * currently on zyprexa and ativan * encouraged to attend therapy sessions and groups 2) Hx of Dehydration * patient tolerating PO diet * encouraged to continue oral hydration 3) PPX * tylenol * milk of mag * maalox Assessment and plan discussed with attending physician. <Nasima Resendiz - Last Filed: 08/10/16 15:06> Meds - Medications Medications: Current Medications Acetaminophen (Tylenol 325mg Tab) 650 mg PO Q4H PRN PRN Reason: Pain, Mild (1-3) Al Hydrox/Mg Hydrox/Simethicone (Maalox Plus 30 Ml) 30 ml PO DAILY PRN PRN Reason: Upset Stomach Lorazepam (Ativan) 0.5 mg PO AMHS PETRA PRN Reason: Protocol Last Admin: 08/10/16 10:38 Dose: 0.5 mg Magnesium Hydroxide (Milk Of Magnesia) 30 ml PO DAILY PRN PRN Reason: Constipation Olanzapine (Zyprexa) 5 mg PO AMHS PETRA PRN Reason: Protocol Last Admin: 08/10/16 10:38 Dose: 5 mg Results - Vital Signs Recent Vital Signs: Last Vital Signs Temp 97.9 F 08/10/16 06:00 Pulse 57 L 08/10/16 06:00 Resp 16 08/10/16 06:00 BP 116/69 08/10/16 06:00 Pulse Ox - Labs Labs: Laboratory Results - last 24 hr 08/10/16 07:30 Fasting Glucose 90 Triglycerides 41 Cholesterol 106 L LDL Cholesterol Direct 55 HDL Cholesterol 43 TSH 3rd Generation 0.86 Attending/Attestation - Attestation I have personally seen and examined this patient.: Yes I have fully participated in the care of the patient.: Yes I have reviewed all pertinent clinical information: Yes Notes (Text): 08/10/16 15:02 MEDICAL CONSULTATION 21 year old male with past medical history of paranoid schizophrenia who was initially presented with auditory hallucinations and paranoid thoughts. He was found to have elevated LFTs and CPK and admitted to the medical floor for iv fluids treatment for rhabdomyolysis. The following day his LFTs and CPK levels improved. He was transferred to inpatient psychiatrist unit. Medical consultation is requested for follow up. (For detailed H&P refer to note from admission 2 days prior). Patient seen and examined in the psychiatric unit. Continue with zyprexa and ativan as per psychiatrist. Encouraged adequate oral hydration. Patient is otherwise comfortable at this time. Lipid panel and TSH were reviewed. Thank you Dr. Pastrana for allowing us to participate in the care of this patient. Please re-consult as needed. Nasima Resendiz MD Hospitalist. 08/10/16 15:06
--- NOTE | 2016-08-11 09:04 | PCM.PYCHPN ---
Psychiatric Progress Note - Psychiatric Progress Note Patient seen today, length of contact: 25 min Patient Chief Complaint: "I need help" Problems Identified/Issues Discussed: I reviewed recent notes and met with patient at bedside. Patient is oriented to month, year and circumstances. He continues to appear disengaged and superficially cooperative during our interactions. Affect remains withdrawn, guarded and internally preoccupied. Notable thought blocking is still present. Patient flatly reports that he is feeling "okay". He denies recurrence of hallucinations. This provider again questions the reliability of this report as patient appears to be minimizing symptoms. Patient denies having suicidal thoughts and denies thoughts of harming others. Patient also denies having any paranoid thoughts including persecutory beliefs about staff or family. He doesn' t appear to be responding to internal stimuli though seems quiet, odd and preoccupied. Nursing indicates that patient is slow and has been isolative on the unit. There were no major behavioral issues overnight Patient is tolerating his medications and denies any new discomfort or pain. Mother provided medication list to nursing, patient was taking Zyprexa 5 mg TID , Cogentin 1 mg BID and klonopin 0.5 mg daily. Diagnostic Results: Chronic Paranoid Schizophrenia Medication Change: Yes (added cogentin 1 mg HS, increased Ativan to 0.5 AM and 1 mg HS) Medical Record Reviewed: Yes (notes, reports, labs, vitals) Mental Status Examination - Cognitive Function Orientation: Person, Place - Affect Affect: Constricted, Blunted, Flat - Formal Thought Process Formal Thought Process: Hallucinations, Delusions, Paranoia, Loosening of associations Goal/Treatment Plan - Goal/Treatment Plan Progress Toward Problem(s) and Goals/Treatment Plan: * Group, milieu and supportive tx * Appreciate f/u by Dr. Resendiz on 08/10/16~signed off case * Zyprexa 5 mg AM and HS for hallucinations and paranoia, titrate as needed to prior effective dose of 5 mg TID * Ativan 0.5 mg AM and increase to 1 mg HS for catatonia & thought blocking, titrate as needed * Cogentin 1 mg HS for EPS prophylaxis * Vitals reviewed and noted below: Selected Entries 08/10/16 08/10/16 06:00 16:22 Temperature 97.9 F Pulse Rate 57 L 69 Respiratory 16 Rate Blood Pressure 116/69 120/85 PSYCHIATRIC FLOOR LABS NOTED BELOW 08/10/16 07:30 Fasting Glucose 90 Triglycerides 41 Cholesterol 106 L LDL Cholesterol Direct 55 HDL Cholesterol 43 TSH 3rd Generation 0.86 MEDICAL FLOOR LABS 08/08/16 08/08/16 08/08/16 02:50 03:10 07:00 WBC 10.7 Hgb 14.6 Hct 41.3 L Plt Count 229 Sodium 143 Potassium 4.0 Chloride 106 Carbon Dioxide 23 Anion Gap 18 BUN 21 Creatinine 1.1 Est GFR ( Amer) > 60 Random Glucose 89 Calcium 9.4 Total Bilirubin 0.9 AST 139 H ALT 69 H Alkaline Phosphatase 59 Total Creatine Kinase 6814 H CK-MB (CK-2) 10.6 H CK-MB (CK-2) % 0.2 L Total Protein 7.7 Albumin 4.3 Globulin 3.4 Albumin/Globulin Ratio 1.3 Lipase 120 Urine Color Yellow Urine Appearance Sl cloudy Urine pH 6.0 Urine Protein Trace H Urine Glucose (UA) Negative Urine Ketones 15 H Urine Blood Negative Urine Nitrate Negative Urine Bilirubin Negative Ur Leukocyte Esterase Negative Urine Bacteria Rare Urine Opiates Screen Negative Urine Methadone Screen Negative Ur Barbiturates Screen Negative Ur Phencyclidine Scrn Negative Ur Amphetamines Screen Negative U Benzodiazepines Scrn Negative U Oth Cocaine Metabols Negative U Cannabinoids Screen Negative Alcohol, Quantitative < 10 Hepatitis A IgM Ab Negative Hep Bs Antigen Negative Hep B Core IgM Ab Negative Hepatitis C Antibody Negative 08/09/16 08/09/16 07:00 07:25 WBC 7.5 D Hgb 13.9 L Hct 40.4 L Plt Count Sodium 140 Potassium 4.1 Chloride 107 Carbon Dioxide 24 Anion Gap 13 BUN 11 Creatinine 0.9 Est GFR ( Amer) > 60 Random Glucose 83 Calcium 8.7 Total Bilirubin 0.8 AST 60 H ALT 67 H Alkaline Phosphatase Total Creatine Kinase 1376 H CK-MB (CK-2) 5.9 H CK-MB (CK-2) % 0.4 L Total Protein 7.1 Albumin 3.9 Globulin 3.2 Albumin/Globulin Ratio 1.2 Lipase Urine Color Urine Appearance Urine pH Urine Protein Urine Glucose (UA) Urine Ketones Urine Blood Urine Nitrate Urine Bilirubin Ur Leukocyte Esterase Urine Bacteria Urine Opiates Screen Urine Methadone Screen Ur Barbiturates Screen Ur Phencyclidine Scrn Ur Amphetamines Screen U Benzodiazepines Scrn U Oth Cocaine Metabols U Cannabinoids Screen Alcohol, Quantitative Hepatitis A IgM Ab Hep Bs Antigen Hep B Core IgM Ab Hepatitis C Antibody
[2016-08-11] MEDS: OLANZapine 5 mg Disintegrating Tab PO SCH ×2 (10:16→21:19)
[2016-08-12 06:56] VITALS: O2SAT 100
[2016-08-12] MEDS: OLANZapine 5 mg Disintegrating Tab PO SCH ×3 (08:38→19:29)
--- NOTE | 2016-08-12 11:05 | PCM.PYCHPN ---
Psychiatric Progress Note - Psychiatric Progress Note Patient seen today, length of contact: 25 min Patient Chief Complaint: "I need help" Problems Identified/Issues Discussed: I reviewed recent notes and met with patient at bedside and during treatment team meeting. Patient is oriented to month, year and circumstances. He continues to appear disengaged and superficially cooperative during our interactions. Affect remains withdrawn, guarded and internally preoccupied. Thought blocking is improving and patient's speech is more spontaneous. He can respond to questioning with some elaboration though his responses aren't always relevant. It is clear that his thought process is disorganized. Patient flatly reports that he is feeling "okay". He reports improvement in hallucinations and staff have observed him whispering to himself. He appears quiet, odd, preoccupied and sometimes bizarre. Patient denies having suicidal thoughts and denies thoughts of harming others. Patient also denies having any paranoid thoughts including persecutory beliefs about staff or family but suggests eventual disposition to [place] instead of [place] where he resides with his family. His focus is too poor to explain this preference. Nursing indicates that patient is has been isolative and preoccupied on the unit. There were no major behavioral issues overnight Patient is tolerating his medications and denies any new discomfort or pain. Diagnostic Results: Chronic Paranoid Schizophrenia Medication Change: Yes ( increased zyprexa to 5 mg po tid) Medical Record Reviewed: Yes (notes, reports, labs, vitals) Mental Status Examination - Cognitive Function Orientation: Person, Place Attention: Poor Concentration: Poor Association: Loose Fund of Knowledge: Poor - Affect Affect: Constricted, Blunted, Flat - Speech Speech: Appropriate - Formal Thought Process Formal Thought Process: Hallucinations (persist but are better), Delusions, Paranoia, Loosening of associations Goal/Treatment Plan - Goal/Treatment Plan Progress Toward Problem(s) and Goals/Treatment Plan: * Group, milieu and supportive tx * Appreciate f/u by Dr. Resendiz on 08/10/16~signed off case * Increased Zyprexa to 5 mg po TID on 08/12/16 for hallucinations, disorganization and paranoia * c/w Ativan 0.5 mg AM and 1 mg HS for catatonia & thought blocking, titrate as needed * Cogentin 1 mg HS for EPS prophylaxis * Vitals reviewed and noted below: Selected Entries 08/11/16 08/11/16 06:00 14:00 Temperature 97.9 F Pulse Rate 60 79 Respiratory 16 Rate Blood Pressure 114/75 136/90 PSYCHIATRIC FLOOR LABS NOTED BELOW 08/10/16 07:30 Fasting Glucose 90 Triglycerides 41 Cholesterol 106 L LDL Cholesterol Direct 55 HDL Cholesterol 43 TSH 3rd Generation 0.86 MEDICAL FLOOR LABS 08/08/16 08/08/16 08/08/16 02:50 03:10 07:00 WBC 10.7 Hgb 14.6 Hct 41.3 L Plt Count 229 Sodium 143 Potassium 4.0 Chloride 106 Carbon Dioxide 23 Anion Gap 18 BUN 21 Creatinine 1.1 Est GFR ( Amer) > 60 Random Glucose 89 Calcium 9.4 Total Bilirubin 0.9 AST 139 H ALT 69 H Alkaline Phosphatase 59 Total Creatine Kinase 6814 H CK-MB (CK-2) 10.6 H CK-MB (CK-2) % 0.2 L Total Protein 7.7 Albumin 4.3 Globulin 3.4 Albumin/Globulin Ratio 1.3 Lipase 120 Urine Color Yellow Urine Appearance Sl cloudy Urine pH 6.0 Urine Protein Trace H Urine Glucose (UA) Negative Urine Ketones 15 H Urine Blood Negative Urine Nitrate Negative Urine Bilirubin Negative Ur Leukocyte Esterase Negative Urine Bacteria Rare Urine Opiates Screen Negative Urine Methadone Screen Negative Ur Barbiturates Screen Negative Ur Phencyclidine Scrn Negative Ur Amphetamines Screen Negative U Benzodiazepines Scrn Negative U Oth Cocaine Metabols Negative U Cannabinoids Screen Negative Alcohol, Quantitative < 10 Hepatitis A IgM Ab Negative Hep Bs Antigen Negative Hep B Core IgM Ab Negative Hepatitis C Antibody Negative 08/09/16 08/09/16 07:00 07:25 WBC 7.5 D Hgb 13.9 L Hct 40.4 L Plt Count Sodium 140 Potassium 4.1 Chloride 107 Carbon Dioxide 24 Anion Gap 13 BUN 11 Creatinine 0.9 Est GFR ( Amer) > 60 Random Glucose 83 Calcium 8.7 Total Bilirubin 0.8 AST 60 H ALT 67 H Alkaline Phosphatase Total Creatine Kinase 1376 H CK-MB (CK-2) 5.9 H CK-MB (CK-2) % 0.4 L Total Protein 7.1 Albumin 3.9 Globulin 3.2 Albumin/Globulin Ratio 1.2 Lipase Urine Color Urine Appearance Urine pH Urine Protein Urine Glucose (UA) Urine Ketones Urine Blood Urine Nitrate Urine Bilirubin Ur Leukocyte Esterase Urine Bacteria Urine Opiates Screen Urine Methadone Screen Ur Barbiturates Screen Ur Phencyclidine Scrn Ur Amphetamines Screen U Benzodiazepines Scrn U Oth Cocaine Metabols U Cannabinoids Screen Alcohol, Quantitative Hepatitis A IgM Ab Hep Bs Antigen Hep B Core IgM Ab Hepatitis C Antibody
[2016-08-13] MEDS: OLANZapine 5 mg Disintegrating Tab PO SCH ×3 (09:38→17:37)
--- NOTE | 2016-08-13 10:19 | PCM.PYCHPN ---
Psychiatric Progress Note - Psychiatric Progress Note Patient seen today, length of contact: 25 min Patient Chief Complaint: "I need help" Problems Identified/Issues Discussed: I reviewed recent notes and met with patient in the dayroom. Patient remains oriented to month, year and circumstances. He continues to appear disengaged and superficially cooperative during our interactions. Affect remains withdrawn , guarded and internally preoccupied. Nonetheless there has been improvement in concentration and overall orientation to circumstances. Thought blocking also continues to improve and patient's speech is more spontaneous. He can respond to questioning with some elaboration though his responses still aren't always relevant. It is clear that his thought process is disorganized but possibly with some improvement today. Patient flatly reports that he is feeling "better" and "okay". He denies any current discomfort or pain and continues to tolerate his medications. Today he reports that he continues to have hallucinations, most recently right before he woke up today. These are nonspecific and improving since admission. Patient still appears quiet, odd, preoccupied and sometimes bizarre around the unit. He is more visible but keeps to himself. There were no major behavioral issues overnight . Diagnostic Results: Chronic Paranoid Schizophrenia Medication Change: Yes ( increased zyprexa to 5 mg po tid) Medical Record Reviewed: Yes (notes, reports, labs, vitals) Mental Status Examination - Cognitive Function Orientation: Person, Place Attention: Poor Concentration: Poor Association: Loose Fund of Knowledge: Poor - Affect Affect: Constricted, Blunted, Flat - Speech Speech: Appropriate - Formal Thought Process Formal Thought Process: Hallucinations (persist but are better), Delusions, Paranoia, Loosening of associations Goal/Treatment Plan - Goal/Treatment Plan Progress Toward Problem(s) and Goals/Treatment Plan: * Group, milieu and supportive tx * Appreciate f/u by Dr. Resendiz on 08/10/16~signed off case * Increased Zyprexa to 5 mg po TID on 08/12/16 for hallucinations, disorganization and paranoia * c/w Ativan 0.5 mg AM and 1 mg HS for catatonia & thought blocking, titrate as needed * Cogentin 1 mg HS for EPS prophylaxis * Vitals reviewed and noted below: Selected Entries 08/12/16 08/12/16 06:53 14:00 Temperature 97.8 F Pulse Rate 61 61 Respiratory 16 Rate Blood Pressure 99/63 L 123/80 PSYCHIATRIC FLOOR LABS NOTED BELOW 08/10/16 07:30 Fasting Glucose 90 Triglycerides 41 Cholesterol 106 L LDL Cholesterol Direct 55 HDL Cholesterol 43 TSH 3rd Generation 0.86 MEDICAL FLOOR LABS 08/08/16 08/08/16 08/08/16 02:50 03:10 07:00 WBC 10.7 Hgb 14.6 Hct 41.3 L Plt Count 229 Sodium 143 Potassium 4.0 Chloride 106 Carbon Dioxide 23 Anion Gap 18 BUN 21 Creatinine 1.1 Est GFR ( Amer) > 60 Random Glucose 89 Calcium 9.4 Total Bilirubin 0.9 AST 139 H ALT 69 H Alkaline Phosphatase 59 Total Creatine Kinase 6814 H CK-MB (CK-2) 10.6 H CK-MB (CK-2) % 0.2 L Total Protein 7.7 Albumin 4.3 Globulin 3.4 Albumin/Globulin Ratio 1.3 Lipase 120 Urine Color Yellow Urine Appearance Sl cloudy Urine pH 6.0 Urine Protein Trace H Urine Glucose (UA) Negative Urine Ketones 15 H Urine Blood Negative Urine Nitrate Negative Urine Bilirubin Negative Ur Leukocyte Esterase Negative Urine Bacteria Rare Urine Opiates Screen Negative Urine Methadone Screen Negative Ur Barbiturates Screen Negative Ur Phencyclidine Scrn Negative Ur Amphetamines Screen Negative U Benzodiazepines Scrn Negative U Oth Cocaine Metabols Negative U Cannabinoids Screen Negative Alcohol, Quantitative < 10 Hepatitis A IgM Ab Negative Hep Bs Antigen Negative Hep B Core IgM Ab Negative Hepatitis C Antibody Negative 08/09/16 08/09/16 07:00 07:25 WBC 7.5 D Hgb 13.9 L Hct 40.4 L Plt Count Sodium 140 Potassium 4.1 Chloride 107 Carbon Dioxide 24 Anion Gap 13 BUN 11 Creatinine 0.9 Est GFR ( Amer) > 60 Random Glucose 83 Calcium 8.7 Total Bilirubin 0.8 AST 60 H ALT 67 H Alkaline Phosphatase Total Creatine Kinase 1376 H CK-MB (CK-2) 5.9 H CK-MB (CK-2) % 0.4 L Total Protein 7.1 Albumin 3.9 Globulin 3.2 Albumin/Globulin Ratio 1.2 Lipase Urine Color Urine Appearance Urine pH Urine Protein Urine Glucose (UA) Urine Ketones Urine Blood Urine Nitrate Urine Bilirubin Ur Leukocyte Esterase Urine Bacteria Urine Opiates Screen Urine Methadone Screen Ur Barbiturates Screen Ur Phencyclidine Scrn Ur Amphetamines Screen U Benzodiazepines Scrn U Oth Cocaine Metabols U Cannabinoids Screen Alcohol, Quantitative Hepatitis A IgM Ab Hep Bs Antigen Hep B Core IgM Ab Hepatitis C Antibody
[2016-08-14] MEDS: OLANZapine 5 mg Disintegrating Tab PO SCH ×3 (09:21→17:45)
--- NOTE | 2016-08-14 10:34 | PCM.PYCHPN ---
Psychiatric Progress Note - Psychiatric Progress Note Patient seen today, length of contact: 25 min Patient Chief Complaint: "I need help" Problems Identified/Issues Discussed: I reviewed recent notes and met with patient in the dayroom again. Patient remains oriented to month, year and circumstances. He continues to appear disengaged and superficially cooperative during our interactions. Affect remains withdrawn, guarded and internally preoccupied. Nonetheless there has been some improvement in concentration and overall orientation to circumstances. Thought blocking also continues to improve and patient's speech is more spontaneous. He can respond to questioning with some elaboration though his responses still aren't always relevant. It is clear that his thought process is disorganized but possibly with some improved clarity while on the unit. Patient flatly continues to report that he is "doing better". He denies any current discomfort or pain. He also denies any side effects from his medications however refused dose of zyprexa yesterday afternoon. Today he reports that he continues to have hallucinations, most recently last night. These are nonspecific and reportedly improving since admission. Patient states that he is calmer and "able to deal with them better". Patient still appears quiet, odd, preoccupied and sometimes bizarre around the unit. He is more visible but still keeps to himself. There were no major behavioral issues overnight . Diagnostic Results: Chronic Paranoid Schizophrenia Medication Change: Yes ( increased zyprexa to 5 mg po tid) Medical Record Reviewed: Yes (notes, reports, labs, vitals) Mental Status Examination - Cognitive Function Orientation: Person, Place Attention: Poor Concentration: Poor Association: Loose Fund of Knowledge: Poor - Mood Mood: Other ("doing better") - Affect Affect: Constricted, Blunted, Flat - Speech Speech: Appropriate - Formal Thought Process Formal Thought Process: Hallucinations (persist but are better), Delusions, Paranoia, Loosening of associations Goal/Treatment Plan - Goal/Treatment Plan Progress Toward Problem(s) and Goals/Treatment Plan: * Group, milieu and supportive tx * Appreciate f/u by Dr. Resendiz on 08/10/16~signed off case * Increased Zyprexa to 5 mg po TID on 08/12/16 for hallucinations, disorganization and paranoia * c/w Ativan 0.5 mg AM and 1 mg HS for catatonia & thought blocking, titrate as needed * Cogentin 1 mg HS for EPS prophylaxis * Vitals reviewed and noted below: Selected Entries 08/13/16 08/13/16 06:38 16:44 Temperature 98.2 F Pulse Rate 83 73 Respiratory 19 Rate Blood Pressure 138/82 147/86 PSYCHIATRIC FLOOR LABS NOTED BELOW 08/10/16 07:30 Fasting Glucose 90 Triglycerides 41 Cholesterol 106 L LDL Cholesterol Direct 55 HDL Cholesterol 43 TSH 3rd Generation 0.86 MEDICAL FLOOR LABS 08/08/16 08/08/16 08/08/16 02:50 03:10 07:00 WBC 10.7 Hgb 14.6 Hct 41.3 L Plt Count 229 Sodium 143 Potassium 4.0 Chloride 106 Carbon Dioxide 23 Anion Gap 18 BUN 21 Creatinine 1.1 Est GFR ( Amer) > 60 Random Glucose 89 Calcium 9.4 Total Bilirubin 0.9 AST 139 H ALT 69 H Alkaline Phosphatase 59 Total Creatine Kinase 6814 H CK-MB (CK-2) 10.6 H CK-MB (CK-2) % 0.2 L Total Protein 7.7 Albumin 4.3 Globulin 3.4 Albumin/Globulin Ratio 1.3 Lipase 120 Urine Color Yellow Urine Appearance Sl cloudy Urine pH 6.0 Urine Protein Trace H Urine Glucose (UA) Negative Urine Ketones 15 H Urine Blood Negative Urine Nitrate Negative Urine Bilirubin Negative Ur Leukocyte Esterase Negative Urine Bacteria Rare Urine Opiates Screen Negative Urine Methadone Screen Negative Ur Barbiturates Screen Negative Ur Phencyclidine Scrn Negative Ur Amphetamines Screen Negative U Benzodiazepines Scrn Negative U Oth Cocaine Metabols Negative U Cannabinoids Screen Negative Alcohol, Quantitative < 10 Hepatitis A IgM Ab Negative Hep Bs Antigen Negative Hep B Core IgM Ab Negative Hepatitis C Antibody Negative 08/09/16 08/09/16 07:00 07:25 WBC 7.5 D Hgb 13.9 L Hct 40.4 L Plt Count Sodium 140 Potassium 4.1 Chloride 107 Carbon Dioxide 24 Anion Gap 13 BUN 11 Creatinine 0.9 Est GFR ( Amer) > 60 Random Glucose 83 Calcium 8.7 Total Bilirubin 0.8 AST 60 H ALT 67 H Alkaline Phosphatase Total Creatine Kinase 1376 H CK-MB (CK-2) 5.9 H CK-MB (CK-2) % 0.4 L Total Protein 7.1 Albumin 3.9 Globulin 3.2 Albumin/Globulin Ratio 1.2 Lipase Urine Color Urine Appearance Urine pH Urine Protein Urine Glucose (UA) Urine Ketones Urine Blood Urine Nitrate Urine Bilirubin Ur Leukocyte Esterase Urine Bacteria Urine Opiates Screen Urine Methadone Screen Ur Barbiturates Screen Ur Phencyclidine Scrn Ur Amphetamines Screen U Benzodiazepines Scrn U Oth Cocaine Metabols U Cannabinoids Screen Alcohol, Quantitative Hepatitis A IgM Ab Hep Bs Antigen Hep B Core IgM Ab Hepatitis C Antibody
[2016-08-15] MEDS: OLANZapine 5 mg Disintegrating Tab PO SCH ×3 (09:33→17:30)
--- NOTE | 2016-08-15 10:46 | PCM.PYCHPN ---
Psychiatric Progress Note - Psychiatric Progress Note Patient seen today, length of contact: 25 min Patient Chief Complaint: "I need help" Problems Identified/Issues Discussed: Patient is a 21-year-old single -English male with a history of paranoid schizophrenia, multiple psychiatric hospitalizations (though none noted at this facility) who presented to the emergency room on August 08, 2016 reporting increased paranoia. Patient was seen by overnight barge master who recommended patient be hospitalized for paranoia as he was notably thought-blocked, guarded and paranoid. Patient refused to sign in for a voluntary admission and a screening was called. During this time his laboratory results returned which indicated markedly elevated total creatine kinase of 6814. Patient was admitted medically for rhabdomyolysis. Psychiatry followed patient on the medical floor for one day before patient was medically cleared and transferred to the psychiatric unit. During this time risperdal was discontinued as we received information from patient's mother indicating patient had a bad reaction to this medication. Patient demonstrated minimal improvement in his psychotic symptoms while he was in the medical floor however his insight improved as he was newly willing to sign in voluntarily for help with his paranoia. While patient was on the medical floor he reported hallucinations described as vague, indistinguishable voices. He denied any command type hallucinations. Regarding his paranoia patient was unable to clarify on this complaint. He was either unable to or did not want to elaborate on this particular symptom. Patient was notably thought-blocked guarded and internally preoccupied during my interviews. He was never agitated in the ER or on the medical floor. Did not appear to self escalate and was superficially agreeable to medical and psychiatric management while hospitalized. ~~~~~~~ I reviewed recent notes and met with patient again in the dayroom. Patient remains oriented to month, year and circumstances. He continues to appear disengaged and superficially cooperative during our interactions. Affect remains withdrawn, guarded and internally preoccupied. Nonetheless there has been some improvement in concentration and overall orientation to circumstances. Thought blocking also continues to improve and patient's speech is a lot more spontaneous. He can respond to questioning with some elaboration though his responses still aren't always relevant or connected. It is clear that his thought process is disorganized but possibly showing some improved clarity while on this unit. Patient flatly continues to report that he is " doing better". He denies any current discomfort or pain. He also denies any side effects from his medications and took all doses of zyprexa yesterday ( patient refused PM dose of zyprexa the day prior). He continues to report having hallucinations, most recently this morning. He is reluctant to admit this. The hallucinations are nonspecific and reportedly improving since admission. Patient states that he is calmer and "able to deal with them better". Patient still appears quiet, odd and preoccupied but gradually less bizarre around the unit. He is more visible but still keeps to himself. There were no major behavioral issues overnight Diagnostic Results: Chronic Paranoid Schizophrenia Medication Change: Yes ( increased zyprexa to 5 mg po tid) Medical Record Reviewed: Yes (notes, reports, labs, vitals) Mental Status Examination - Cognitive Function Orientation: Person, Place Attention: Poor Concentration: Poor Association: Loose Fund of Knowledge: Poor - Mood Mood: Other ("doing better") - Affect Affect: Constricted, Blunted, Flat - Speech Speech: Appropriate - Formal Thought Process Formal Thought Process: Hallucinations (persist but are better), Delusions, Paranoia, Loosening of associations Goal/Treatment Plan - Goal/Treatment Plan Progress Toward Problem(s) and Goals/Treatment Plan: * Group, milieu and supportive tx * Appreciate f/u by Dr. Resendiz on 08/10/16~signed off case * Increased Zyprexa to 5 mg po TID on 08/12/16 for hallucinations, disorganization and paranoia * c/w Ativan 0.5 mg AM and 1 mg HS for catatonia & thought blocking, titrate as needed * Cogentin 1 mg HS for EPS prophylaxis * Vitals reviewed and noted below: Selected Entries 08/15/16 06:52 Temperature 98.2 F Pulse Rate 86 Respiratory 18 Rate Blood Pressure 143/89 PSYCHIATRIC FLOOR LABS NOTED BELOW 08/10/16 07:30 Fasting Glucose 90 Triglycerides 41 Cholesterol 106 L LDL Cholesterol Direct 55 HDL Cholesterol 43 TSH 3rd Generation 0.86 MEDICAL FLOOR LABS 08/08/16 08/08/16 08/08/16 02:50 03:10 07:00 WBC 10.7 Hgb 14.6 Hct 41.3 L Plt Count 229 Sodium 143 Potassium 4.0 Chloride 106 Carbon Dioxide 23 Anion Gap 18 BUN 21 Creatinine 1.1 Est GFR ( Amer) > 60 Random Glucose 89 Calcium 9.4 Total Bilirubin 0.9 AST 139 H ALT 69 H Alkaline Phosphatase 59 Total Creatine Kinase 6814 H CK-MB (CK-2) 10.6 H CK-MB (CK-2) % 0.2 L Total Protein 7.7 Albumin 4.3 Globulin 3.4 Albumin/Globulin Ratio 1.3 Lipase 120 Urine Color Yellow Urine Appearance Sl cloudy Urine pH 6.0 Urine Protein Trace H Urine Glucose (UA) Negative Urine Ketones 15 H Urine Blood Negative Urine Nitrate Negative Urine Bilirubin Negative Ur Leukocyte Esterase Negative Urine Bacteria Rare Urine Opiates Screen Negative Urine Methadone Screen Negative Ur Barbiturates Screen Negative Ur Phencyclidine Scrn Negative Ur Amphetamines Screen Negative U Benzodiazepines Scrn Negative U Oth Cocaine Metabols Negative U Cannabinoids Screen Negative Alcohol, Quantitative < 10 Hepatitis A IgM Ab Negative Hep Bs Antigen Negative Hep B Core IgM Ab Negative Hepatitis C Antibody Negative 08/09/16 08/09/16 07:00 07:25 WBC 7.5 D Hgb 13.9 L Hct 40.4 L Plt Count Sodium 140 Potassium 4.1 Chloride 107 Carbon Dioxide 24 Anion Gap 13 BUN 11 Creatinine 0.9 Est GFR ( Amer) > 60 Random Glucose 83 Calcium 8.7 Total Bilirubin 0.8 AST 60 H ALT 67 H Alkaline Phosphatase Total Creatine Kinase 1376 H CK-MB (CK-2) 5.9 H CK-MB (CK-2) % 0.4 L Total Protein 7.1 Albumin 3.9 Globulin 3.2 Albumin/Globulin Ratio 1.2 Lipase Urine Color Urine Appearance Urine pH Urine Protein Urine Glucose (UA) Urine Ketones Urine Blood Urine Nitrate Urine Bilirubin Ur Leukocyte Esterase Urine Bacteria Urine Opiates Screen Urine Methadone Screen Ur Barbiturates Screen Ur Phencyclidine Scrn Ur Amphetamines Screen U Benzodiazepines Scrn U Oth Cocaine Metabols U Cannabinoids Screen Alcohol, Quantitative Hepatitis A IgM Ab Hep Bs Antigen Hep B Core IgM Ab Hepatitis C Antibody - Smoking Cessation Smoking Cessation Initiated: No
[2016-08-16] MEDS: OLANZapine 5 mg Disintegrating Tab PO SCH ×2 (08:14→22:22)
--- NOTE | 2016-08-16 19:00 | PCM.PYCHPN ---
Psychiatric Progress Note - Psychiatric Progress Note Patient seen today, length of contact: 30 minutes Patient Chief Complaint: "you know, hm, ah, you know....". Problems Identified/Issues Discussed: Suicide/ homicide prevention, past psychiatric h/o, current psychiatric symptoms , medical problems, risk/benefits and alternatives of medications, medications compliance, coping strategies, substance abuse h/o, relapse prevention, importance of follow up with psychiatrist and therapist, discharge plan. Medical Problems: rhabdomyolisis is improving Diagnostic Results: Lab Results 08/10/16 07:30: Fasting Glucose 90, Triglycerides 41, Cholesterol 106 L, LDL Cholesterol Direct 55, HDL Cholesterol 43, TSH 3rd Generation 0.86, RPR Nonreactive Vital Signs Temp Pulse Resp BP Pulse Ox 08/16/16 16:36 69 132/83 08/16/16 06:31 98.6 F 80 20 126/77 08/15/16 16:46 69 138/63 08/15/16 06:52 98.2 F 86 18 143/89 08/14/16 16:20 81 125/79 08/14/16 06:00 97.4 F L 69 18 120/84 08/13/16 16:44 73 147/86 08/13/16 06:38 98.2 F 83 19 138/82 08/12/16 14:00 61 123/80 08/12/16 06:53 97.8 F 61 16 99/63 L 100 08/11/16 14:00 79 136/90 08/11/16 06:00 97.9 F 60 16 114/75 08/10/16 16:22 69 120/85 08/10/16 06:00 97.9 F 57 L 16 116/69 08/09/16 21:06 20 DSM 5 Symptoms Update: as per assessment: Patient is a 21-year-old single -[place] male with a history of paranoid schizophrenia, multiple psychiatric hospitalizations (though none noted at this facility) who presented to the emergency room on August 08, 2016 reporting increased paranoia. Patient was seen by overnight eap clinician who recommended patient be hospitalized for paranoia as he was notably thought-blocked, guarded and paranoid. Patient refused to sign in for a voluntary admission and a screening was called. During this time his laboratory results returned which indicated markedly elevated total creatine kinase of 6814. Patient was admitted medically for rhabdomyolysis. Psychiatry followed patient on the medical floor for one day before patient was medically cleared and transferred to the psychiatric unit. medications, previous record, nose from medical team as well as psychiatrist Dr. Cornelius reviewed, discussed with the treatment team. Patient was seen today at the treatment team meeting, patient presented to have acceptable personal hygiene, tall, thin build -[place] male, who presented with severe thought blocking, difficulties to express himself, there is some psychomotor retardation, poverty of speech, poverty of thoughts. Pt also presented to be paranoid, it took 10 minutes for the patient to sign treatment plan, it took denied 20 minute to educate patient about treatment plan , about medications, risk, benefits, and alternatives of all of the medications what he is taking right now. as per tx team and pt is improving and at present moment pt has some improvement with his symptoms. Patient was guarded and was withholding information about previous admissions, and circumstances of that admissions, as well as previous suicidal ideations, previous suicidal attempts, "I will hold this for myself". no major behavioral issues overnight but pt approaches staff and not able to express himself "you know, hm, ah, you know....". Diagnostic Results: Chronic Paranoid Schizophrenia Medication Change: Yes (Zyprexa, Ativan increased) Medical Record Reviewed: Yes (notes, reports, labs, vitals) Consults ordered or reviewed: medical consult appreciated Mental Status Examination - Cognitive Function Orientation: Person, Place Attention: Poor Concentration: Poor Association: Loose Fund of Knowledge: Poor - Mood Mood: Other ("doing better") - Affect Affect: Constricted, Blunted, Flat - Speech Speech: Appropriate - Formal Thought Process Formal Thought Process: Hallucinations (persist but are better), Delusions, Paranoia, Loosening of associations - Suicidal Ideation Suicidal Ideation: No - Homicidal Ideation Homicidal Ideation: No Goal/Treatment Plan - Goal/Treatment Plan Need for Continued Stay: Remain at risks for inpatient hospitalization, Severe depression anxiety, Discharge may exacerbated symptoms, Severe functional impairment Progress Toward Problem(s) and Goals/Treatment Plan: milieu, structure, supportive therapy Zyprexa Zydis 5 mg at the morning time 10 mg at the nighttime for psychosis Ativan will be increased to 1 mg at the morning time 1 mg at the nighttime for catatonia and anxiety Cogentin 1 mg at the nighttime Social work evaluation Medical consult appreciated We'll monitor closely Possible family involvement Family meeting will be requested. Estimated Date of D/C: 08/20/16 (we'll monitor closely)
[2016-08-17] MEDS ORDERED: OLANZapine 5 mg Disintegrating Tab PO SCH (08:00)
--- NOTE | 2016-08-17 09:25 | PCM.PYCHPN ---
Psychiatric Progress Note - Psychiatric Progress Note Patient seen today, length of contact: 25 minutes Patient Chief Complaint: "doing better" Problems Identified/Issues Discussed: I reviewed recent notes and met with patient at bedside. Patient remains oriented to month, year and circumstances. He continues to appear disengaged and superficially cooperative during our interactions. Affect remains withdrawn , guarded and internally preoccupied. There has been some improvement in concentration and overall orientation to circumstances. Thought blocking also continues to improve and patient's speech is notably more spontaneous. He can respond to questioning with some elaboration though his responses still aren't always relevant or connected. It is clear that his thought process is disorganized nonetheless showing some improved clarity and focus while on this unit. Patient flatly continues to report that he is "doing better", he says this with forced brightness. He denies any current discomfort or pain. He also denies any side effects from his medications. He continues to report having hallucinations, most recently last night. The hallucinations are nonspecific and reportedly improving since admission. Denies command hallucinations . Patient still see hesitant to discuss them. Diagnostic Results: Chronic Paranoid Schizophrenia Medication Change: No ( ) Medical Record Reviewed: Yes (notes, reports, labs, vitals) Mental Status Examination - Cognitive Function Orientation: Person, Place Attention: Poor Concentration: Poor Association: Loose Fund of Knowledge: Poor - Mood Mood: Other ("doing better") - Affect Affect: Constricted, Blunted, Flat - Speech Speech: Appropriate - Formal Thought Process Formal Thought Process: Hallucinations (persist but are better), Delusions, Paranoia, Loosening of associations - Suicidal Ideation Suicidal Ideation: No - Homicidal Ideation Homicidal Ideation: No Goal/Treatment Plan - Goal/Treatment Plan Need for Continued Stay: Remain at risks for inpatient hospitalization, Severe depression anxiety, Discharge may exacerbated symptoms, Severe functional impairment Progress Toward Problem(s) and Goals/Treatment Plan: * Group, milieu and supportive tx * No new labs overnight * Vitals reviewed and noted below: Selected Entries 08/16/16 08/16/16 06:31 16:36 Temperature 98.6 F Pulse Rate 80 69 Respiratory 20 Rate Blood Pressure 126/77 132/83 Estimated Date of D/C: 08/20/16 (we'll monitor closely)
[2016-08-17] MEDS: OLANZapine 5 mg Disintegrating Tab PO SCH ×2 (09:29→22:53)
[2016-08-18] MEDS: OLANZapine 5 mg Disintegrating Tab PO SCH ×2 (08:00→21:42)
--- NOTE | 2016-08-18 08:46 | PCM.PYCHPN ---
Psychiatric Progress Note - Psychiatric Progress Note Patient seen today, length of contact: 25 minutes Patient Chief Complaint: "doing better" Problems Identified/Issues Discussed: I reviewed recent notes and met with patient in the dayroom. Patient remains oriented to month, year and circumstances. He continues to appear disengaged and superficially cooperative during our interactions. Affect remains withdrawn , a little guarded and internally preoccupied. There has been some improvement in concentration and overall orientation to circumstances. Thought blocking also continues to improve and patient's speech is notably more spontaneous. He can respond to questioning with some elaboration though his responses still aren 't always relevant or connected. It is clear that his thought process is disorganized nonetheless showing some improved clarity and focus while on this unit. Patient flatly continues to report that he is "doing better", he says this with forced brightness. He denies any current discomfort or pain. He also denies any side effects from his medications. He continues to report having hallucinations, most recently last night again. The hallucinations are nonspecific and reportedly improving since admission. Denies command hallucinations . Patient still seems hesitant to discuss them. Patient appears quiet, odd and preoccupied but gradually less bizarre around the unit. He is more visible but still very much keeps to himself. He doesn't seek out social interaction. There were no major behavioral issues over the weekend. Diagnostic Results: Chronic Paranoid Schizophrenia Medication Change: No ( ) Medical Record Reviewed: Yes (notes, reports, labs, vitals) Mental Status Examination - Cognitive Function Orientation: Person, Place Attention: Poor Concentration: Poor Association: Loose Fund of Knowledge: Poor - Mood Mood: Other ("doing better") - Affect Affect: Constricted, Blunted, Flat - Speech Speech: Appropriate - Formal Thought Process Formal Thought Process: Hallucinations (persist but are better), Delusions, Paranoia, Loosening of associations - Suicidal Ideation Suicidal Ideation: No - Homicidal Ideation Homicidal Ideation: No Goal/Treatment Plan - Goal/Treatment Plan Need for Continued Stay: Remain at risks for inpatient hospitalization, Severe depression anxiety, Discharge may exacerbated symptoms, Severe functional impairment Progress Toward Problem(s) and Goals/Treatment Plan: * Group, milieu and supportive tx * No new labs overnight * Vitals reviewed and noted below: Selected Entries 08/17/16 08/17/16 08/17/16 05:25 06:00 17:54 Temperature 98.2 F Pulse Rate 69 59 L 75 Respiratory 20 Rate Blood Pressure 132/83 121/86 131/70 Estimated Date of D/C: 08/20/16 (we'll monitor closely)
[2016-08-19] MEDS: OLANZapine 5 mg Disintegrating Tab PO SCH ×2 (09:26→21:58)
--- NOTE | 2016-08-19 15:57 | PCM.PYCHPN ---
Psychiatric Progress Note - Psychiatric Progress Note Patient seen today, length of contact: 30 minutes Patient Chief Complaint: "I will not tell you it is stupid" Problems Identified/Issues Discussed: Suicide/ homicide prevention, past psychiatric h/o, current psychiatric symptoms , medical problems, risk/benefits and alternatives of medications, medications compliance, coping strategies, substance abuse h/o, relapse prevention, importance of follow up with psychiatrist and therapist, discharge plan. Medical Problems: rhabdomyolisis is improving Diagnostic Results: Lab Results 08/10/16 07:30: Fasting Glucose 90, Triglycerides 41, Cholesterol 106 L, LDL Cholesterol Direct 55, HDL Cholesterol 43, TSH 3rd Generation 0.86, RPR Nonreactive Vital Signs Temp Pulse Resp BP Pulse Ox 08/16/16 16:36 69 132/83 08/16/16 06:31 98.6 F 80 20 126/77 08/15/16 16:46 69 138/63 08/15/16 06:52 98.2 F 86 18 143/89 08/14/16 16:20 81 125/79 08/14/16 06:00 97.4 F L 69 18 120/84 08/13/16 16:44 73 147/86 08/13/16 06:38 98.2 F 83 19 138/82 08/12/16 14:00 61 123/80 08/12/16 06:53 97.8 F 61 16 99/63 L 100 08/11/16 14:00 79 136/90 08/11/16 06:00 97.9 F 60 16 114/75 08/10/16 16:22 69 120/85 08/10/16 06:00 97.9 F 57 L 16 116/69 08/09/16 21:06 20 Temp Pulse Resp BP Pulse Ox 97.1 F L 92 H 20 127/83 100 08/19/16 07:26 08/19/16 07:26 08/19/16 07:26 08/19/16 07:26 08/12/16 06:53 DSM 5 Symptoms Update: Patient is a 21-year-old single -Polish male with a history of paranoid schizophrenia, multiple psychiatric hospitalizations (though none noted at this facility) who presented to the emergency room on August 08, 2016 reporting increased paranoia. Patient was seen by overnight instructional facilitator who recommended patient be hospitalized for paranoia as he was notably thought-blocked, guarded and paranoid. Patient refused to sign in for a voluntary admission and a screening was called. During this time his laboratory results returned which indicated markedly elevated total creatine kinase of 6814. Patient was admitted medically for rhabdomyolysis. Psychiatry followed patient on the medical floor for one day before patient was medically cleared and transferred to the psychiatric unit. medications, previous record, notes from medical team as well as psychiatrist Dr. Pastrana reviewed, discussed with the treatment team. Patient was seen today at the treatment team meeting, patient presented to have acceptable personal hygiene, tall, thin build -Polish male, who presented with thought blocking, difficulties to express himself, there is some psychomotor retardation, poverty of speech, poverty of thoughts. pt also presented to be paranoid, when pt was asked why he ran from [facility] [place] [facility] [place] "I would prefer not to answer", when was asked about the reason of not answer "it is stupid, I was looking for my mom". as per staff pt is compliant with medications, unit rules and regulations, no behavioral incidents. pt's thought process is concrete, when was asked about voices and if he hears male of female voices, pt said "my voice is male because I am male as you know" . no ability to abstract thinking. pt also refused to discussed as well as previous suicidal ideations/previous suicidal attempts, "I will hold this for myself". no major behavioral issues overnight but pt approaches staff and not able to express himself "you know, hm, ah, you know....". Diagnostic Results: Chronic Paranoid Schizophrenia Medication Change: Yes (ativan increased hs) Medical Record Reviewed: Yes (notes, reports, labs, vitals) Consults ordered or reviewed: medical consult appreciated Mental Status Examination - Cognitive Function Orientation: Person, Place Attention: Poor (somewhat better) Concentration: Poor (somewhat better) Association: Loose Fund of Knowledge: Poor - Mood Mood: Other ("doing better") - Affect Affect: Constricted, Blunted, Flat - Speech Speech: Appropriate - Formal Thought Process Formal Thought Process: Hallucinations (persist but are better), Delusions, Paranoia, Loosening of associations - Suicidal Ideation Suicidal Ideation: No - Homicidal Ideation Homicidal Ideation: No Goal/Treatment Plan - Goal/Treatment Plan Need for Continued Stay: Remain at risks for inpatient hospitalization, Severe depression anxiety, Discharge may exacerbated symptoms, Severe functional impairment Progress Toward Problem(s) and Goals/Treatment Plan: milieu, structure, supportive therapy Zyprexa Zydis 10 mg at the morning time 10 mg at the nighttime for psychosis Ativan will be increased to 1 mg at the morning time 1.5 mg at the nighttime for catatonia and anxiety Cogentin 1 mg at the nighttime Social work evaluation Medical consult appreciated We'll monitor closely Possible family involvement Family meeting will be requested family meeting requested tomorrow. Estimated Date of D/C: 08/20/16 (we'll monitor closely)
[2016-08-20] MEDS: OLANZapine 5 mg Disintegrating Tab PO SCH ×2 (08:28→22:11)
--- NOTE | 2016-08-20 17:27 | PCM.PYCHPN ---
Psychiatric Progress Note - Psychiatric Progress Note Patient seen today, length of contact: 30 minutes Patient Chief Complaint: "my name was changed from Mr. Ray to Mr. Gant" Problems Identified/Issues Discussed: Suicide/ homicide prevention, past psychiatric h/o, current psychiatric symptoms , medical problems, risk/benefits and alternatives of medications, medications compliance, coping strategies, substance abuse h/o, relapse prevention, importance of follow up with psychiatrist and therapist, discharge plan. Medical Problems: rhabdomyolisis is improving Diagnostic Results: Lab Results 08/10/16 07:30: Fasting Glucose 90, Triglycerides 41, Cholesterol 106 L, LDL Cholesterol Direct 55, HDL Cholesterol 43, TSH 3rd Generation 0.86, RPR Nonreactive Vital Signs Temp Pulse Resp BP Pulse Ox 08/16/16 16:36 69 132/83 08/16/16 06:31 98.6 F 80 20 126/77 08/15/16 16:46 69 138/63 08/15/16 06:52 98.2 F 86 18 143/89 08/14/16 16:20 81 125/79 08/14/16 06:00 97.4 F L 69 18 120/84 08/13/16 16:44 73 147/86 08/13/16 06:38 98.2 F 83 19 138/82 08/12/16 14:00 61 123/80 08/12/16 06:53 97.8 F 61 16 99/63 L 100 08/11/16 14:00 79 136/90 08/11/16 06:00 97.9 F 60 16 114/75 08/10/16 16:22 69 120/85 08/10/16 06:00 97.9 F 57 L 16 116/69 08/09/16 21:06 20 Temp Pulse Resp BP Pulse Ox 97.1 F L 92 H 20 127/83 100 08/19/16 07:26 08/19/16 07:26 08/19/16 07:26 08/19/16 07:26 08/12/16 06:53 DSM 5 Symptoms Update: Patient is a 21-year-old single -U[place]and[place] male with a history of paranoid schizophrenia, multiple psychiatric hospitalizations (though none noted at this facility) who presented to the emergency room on August 08, 2016 reporting increased paranoia. Patient was seen by overnight psychiatric technician who recommended patient be hospitalized for paranoia as he was notably thought-blocked, guarded and paranoid. Patient refused to sign in for a voluntary admission and a screening was called. During this time his laboratory results returned which indicated markedly elevated total creatine kinase of 6814. Patient was admitted medically for rhabdomyolysis. Psychiatry followed patient on the medical floor for one day before patient was medically cleared and transferred to the psychiatric unit. medications, previous record, notes from medical team as well as psychiatrist Dr. Pastrana reviewed, discussed with the treatment team. family meeting took place today, patient mother visited patient. Collateral information were obtained. Patient mother reported that first psychotic break was 2 years ago, patient presented to be confused, angry, had episodes of irritability and angry outbursts towards her, pt never been seen by neurologist and CT of the head was not done. no family h/o mental illness. . Most recently patient was noncompliant with the medications due to side effects from Risperdal. Since summertime patient was not on any psychotropic medications, patient was doing fine for a while but for the past 2 weeks patient became more confused, was restless, delusional, patient also reported that he Hears voices, patient was talking about his identity was changed. From this technical writer observation patient was irritable at the family meeting, but at the same time patient was more verbal and was able to express himself but more delusional and paranoid and psychotic. Patient is convinced due to change of his behavior his name was changed from Mr. Ray to Mr. Gant. Patient is convinced that she received a letter through the mail saying that his name was officially changed. Off note patient mother never saw this letter. Pt is disorganized, paranoid, said that he needs to save the world and he is planning to do so by taking medications. pt wants to be on zyprexa only and refused to be on any other meds. pt also refused to discussed as well as previous suicidal ideations/previous suicidal attempts, "I will hold this for myself". pt tolerates medications well, no side effects observed or reported. Aims 0 no EPS Diagnostic Results: Chronic Paranoid Schizophrenia Medication Change: Yes (ativan increased hs) Medical Record Reviewed: Yes (notes, reports, labs, vitals) Consults ordered or reviewed: medical consult appreciated Mental Status Examination - Cognitive Function Orientation: Person, Place Attention: Poor (somewhat better) Concentration: Poor (somewhat better) Association: Loose Fund of Knowledge: Poor - Mood Mood: Other ("doing better") - Affect Affect: Constricted, Blunted, Flat - Speech Speech: Appropriate - Formal Thought Process Formal Thought Process: Hallucinations (persist but are better), Delusions, Paranoia, Loosening of associations - Suicidal Ideation Suicidal Ideation: No - Homicidal Ideation Homicidal Ideation: No Goal/Treatment Plan - Goal/Treatment Plan Need for Continued Stay: Remain at risks for inpatient hospitalization, Severe depression anxiety, Discharge may exacerbated symptoms, Severe functional impairment Progress Toward Problem(s) and Goals/Treatment Plan: milieu, structure, supportive therapy Zyprexa Zydis 10 mg at the morning time 20 mg at the nighttime for psychosis Ativan will be increased to 1 mg at the morning time 1.5 mg at the nighttime for catatonia and anxiety Cogentin 1 mg at the nighttime Social work evaluation Medical consult appreciated We'll monitor closely Possible family involvement Family meeting will be requested family meeting requested tomorrow. Estimated Date of D/C: 08/28/16 (we'll monitor closely)
[2016-08-21] MEDS: OLANZapine 5 mg Disintegrating Tab PO SCH ×2 (09:00→22:14)
--- NOTE | 2016-08-21 17:10 | PCM.PYCHPN ---
Psychiatric Progress Note - Psychiatric Progress Note Patient seen today, length of contact: 30 minutes Patient Chief Complaint: "I was paranoid and had hallucinations, but now may be people are talking about me, but it does not bother me that much" Problems Identified/Issues Discussed: Suicide/ homicide prevention, past psychiatric h/o, current psychiatric symptoms , medical problems, risk/benefits and alternatives of medications, medications compliance, coping strategies, substance abuse h/o, relapse prevention, importance of follow up with psychiatrist and therapist, discharge plan. Medical Problems: rhabdomyolisis is improving Diagnostic Results: Lab Results 08/10/16 07:30: Fasting Glucose 90, Triglycerides 41, Cholesterol 106 L, LDL Cholesterol Direct 55, HDL Cholesterol 43, TSH 3rd Generation 0.86, RPR Nonreactive Vital Signs Temp Pulse Resp BP Pulse Ox 08/16/16 16:36 69 132/83 08/16/16 06:31 98.6 F 80 20 126/77 08/15/16 16:46 69 138/63 08/15/16 06:52 98.2 F 86 18 143/89 08/14/16 16:20 81 125/79 08/14/16 06:00 97.4 F L 69 18 120/84 08/13/16 16:44 73 147/86 08/13/16 06:38 98.2 F 83 19 138/82 08/12/16 14:00 61 123/80 08/12/16 06:53 97.8 F 61 16 99/63 L 100 08/11/16 14:00 79 136/90 08/11/16 06:00 97.9 F 60 16 114/75 08/10/16 16:22 69 120/85 08/10/16 06:00 97.9 F 57 L 16 116/69 08/09/16 21:06 20 Temp Pulse Resp BP Pulse Ox 97.1 F L 92 H 20 127/83 100 08/19/16 07:26 08/19/16 07:26 08/19/16 07:26 08/19/16 07:26 08/12/16 06:53 Temp Pulse Resp BP Pulse Ox 97.2 F L 80 20 117/61 100 08/21/16 07:27 08/21/16 07:27 08/21/16 07:27 08/21/16 07:27 08/12/16 06:53 DSM 5 Symptoms Update: Patient is a 21-year-old single -Marshallese male with a history of paranoid schizophrenia, multiple psychiatric hospitalizations (though none noted at this facility) who presented to the emergency room on August 08, 2016 reporting increased paranoia. Patient was seen by overnight circuit board inspector who recommended patient be hospitalized for paranoia as he was notably thought-blocked, guarded and paranoid. Patient refused to sign in for a voluntary admission and a screening was called. During this time his laboratory results returned which indicated markedly elevated total creatine kinase of 6814. Patient was admitted medically for rhabdomyolysis. Psychiatry followed patient on the medical floor for one day before patient was medically cleared and transferred to the psychiatric unit. some positive changes, but pt still psychotic, delusional, thought blocking but with some improvement. Pt said that he wants to be on zyprexa only, pt said prior to come to the hospital "I was paranoid and had hallucinations", now "I am more relaxed". 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 pt pt's insight is improving. affect is more reactive, today was the first time when pt smiled. goals for tx as per pt : "to be relaxed, have self confidence, be a better person". pt tolerates medications well, no side effects observed or reported. Aims 0 no EPS Diagnostic Results: Chronic Paranoid Schizophrenia Medication Change: Yes (ativan increased hs) Medical Record Reviewed: Yes (notes, reports, labs, vitals) Consults ordered or reviewed: medical consult appreciated Mental Status Examination - Cognitive Function Orientation: Person, Place Attention: Poor (somewhat better) Concentration: Poor (somewhat better) Association: Loose Fund of Knowledge: Poor - Mood Mood: Other ("doing better") - Affect Affect: Constricted, Blunted, Flat - Speech Speech: Appropriate - Formal Thought Process Formal Thought Process: Hallucinations (denied), Delusions, Paranoia, Loosening of associations - Suicidal Ideation Suicidal Ideation: No - Homicidal Ideation Homicidal Ideation: No Goal/Treatment Plan - Goal/Treatment Plan Need for Continued Stay: Remain at risks for inpatient hospitalization, Severe depression anxiety, Discharge may exacerbated symptoms, Severe functional impairment Progress Toward Problem(s) and Goals/Treatment Plan: milieu, structure, supportive therapy Zyprexa Zydis 10 mg at the morning time 20 mg at the nighttime for psychosis Ativan 1 mg at the morning time 2 mg at the nighttime for catatonia and anxiety Cogentin 1 mg at the nighttime Social work evaluation Medical consult appreciated We'll monitor closely Possible family involvement Family meeting will be requested family meeting requested tomorrow. Estimated Date of D/C: 08/28/16 (we'll monitor closely)
[2016-08-22] MEDS: OLANZapine 5 mg Disintegrating Tab PO SCH ×2 (09:02→21:41)
--- NOTE | 2016-08-22 14:24 | PCM.PYCHPN ---
Psychiatric Progress Note - Psychiatric Progress Note Patient seen today, length of contact: 30 minutes Patient Chief Complaint: "I was paranoid and had hallucinations, but now may be people are talking about me, but it does not bother me that much" Problems Identified/Issues Discussed: Suicide/ homicide prevention, past psychiatric h/o, current psychiatric symptoms , medical problems, risk/benefits and alternatives of medications, medications compliance, coping strategies, substance abuse h/o, relapse prevention, importance of follow up with psychiatrist and therapist, discharge plan. Medical Problems: rhabdomyolisis is improving Diagnostic Results: Lab Results 08/10/16 07:30: Fasting Glucose 90, Triglycerides 41, Cholesterol 106 L, LDL Cholesterol Direct 55, HDL Cholesterol 43, TSH 3rd Generation 0.86, RPR Nonreactive Vital Signs Temp Pulse Resp BP Pulse Ox 08/16/16 16:36 69 132/83 08/16/16 06:31 98.6 F 80 20 126/77 08/15/16 16:46 69 138/63 08/15/16 06:52 98.2 F 86 18 143/89 08/14/16 16:20 81 125/79 08/14/16 06:00 97.4 F L 69 18 120/84 08/13/16 16:44 73 147/86 08/13/16 06:38 98.2 F 83 19 138/82 08/12/16 14:00 61 123/80 08/12/16 06:53 97.8 F 61 16 99/63 L 100 08/11/16 14:00 79 136/90 08/11/16 06:00 97.9 F 60 16 114/75 08/10/16 16:22 69 120/85 08/10/16 06:00 97.9 F 57 L 16 116/69 08/09/16 21:06 20 Temp Pulse Resp BP Pulse Ox 97.1 F L 92 H 20 127/83 100 08/19/16 07:26 08/19/16 07:26 08/19/16 07:26 08/19/16 07:26 08/12/16 06:53 Temp Pulse Resp BP Pulse Ox 97.2 F L 80 20 117/61 100 08/21/16 07:27 08/21/16 07:27 08/21/16 07:27 08/21/16 07:27 08/12/16 06:53 Temp Pulse Resp BP Pulse Ox 97.7 F 92 H 20 142/92 H 100 08/22/16 06:34 08/22/16 06:34 08/22/16 06:34 08/22/16 06:34 08/12/16 06:53 DSM 5 Symptoms Update: Patient is a 21-year-old single -J[place]ican male with a history of paranoid schizophrenia, multiple psychiatric hospitalizations (though none noted at this facility) who presented to the emergency room on August 08, 2016 reporting increased paranoia. Patient was seen by overnight food safety director who recommended patient be hospitalized for paranoia as he was notably thought-blocked, guarded and paranoid. Patient refused to sign in for a voluntary admission and a screening was called. During this time his laboratory results returned which indicated markedly elevated total creatine kinase of 6814. Patient was admitted medically for rhabdomyolysis. Psychiatry followed patient on the medical floor for one day before patient was medically cleared and transferred to the psychiatric unit. some positive changes, but pt still psychotic, delusional, thought blocking but with some improvement, pt also has concrete thought process, when was asked about auditory hallucinations pt said "I like music, I am listening music a lot ", pt still paranoid. pt said that meds helping him "to have my own personality ". pt pt's insight is improving. affect is more reactive. goals for tx as per pt : "to be relaxed, have self confidence, be a better person". pt tolerates medications well, no side effects observed or reported. Aims 0 no EPS Diagnostic Results: Chronic Paranoid Schizophrenia Medication Change: No (increased yesterday) Medical Record Reviewed: Yes (notes, reports, labs, vitals) Consults ordered or reviewed: medical consult appreciated Mental Status Examination - Cognitive Function Orientation: Person, Place Attention: Poor (somewhat better) Concentration: Poor (somewhat better) Association: Loose Fund of Knowledge: Poor - Mood Mood: Other ("doing better") - Affect Affect: Constricted, Blunted, Flat - Speech Speech: Appropriate - Formal Thought Process Formal Thought Process: Hallucinations (denied), Delusions, Paranoia, Loosening of associations - Suicidal Ideation Suicidal Ideation: No - Homicidal Ideation Homicidal Ideation: No Goal/Treatment Plan - Goal/Treatment Plan Need for Continued Stay: Remain at risks for inpatient hospitalization, Severe depression anxiety, Discharge may exacerbated symptoms, Severe functional impairment Progress Toward Problem(s) and Goals/Treatment Plan: milieu, structure, supportive therapy Zyprexa Zydis 10 mg at the morning time 20 mg at the nighttime for psychosis Ativan 1 mg at the morning time 2 mg at the nighttime for catatonia and anxiety Cogentin 1 mg at the nighttime Social work evaluation Medical consult appreciated We'll monitor closely Possible family involvement Family meeting will be requested family meeting requested tomorrow. Estimated Date of D/C: 08/28/16 (we'll monitor closely)
[2016-08-23] MEDS: OLANZapine 5 mg Disintegrating Tab PO SCH ×2 (10:07→21:18)
--- NOTE | 2016-08-23 17:32 | PCM.PYCHPN ---
Psychiatric Progress Note - Psychiatric Progress Note Patient seen today, length of contact: 30 minutes Patient Chief Complaint: "I prefer not to talk about it" Problems Identified/Issues Discussed: Suicide/ homicide prevention, past psychiatric h/o, current psychiatric symptoms , medical problems, risk/benefits and alternatives of medications, medications compliance, coping strategies, substance abuse h/o, relapse prevention, importance of follow up with psychiatrist and therapist, discharge plan. Medical Problems: rhabdomyolisis is improving Diagnostic Results: Lab Results 08/10/16 07:30: Fasting Glucose 90, Triglycerides 41, Cholesterol 106 L, LDL Cholesterol Direct 55, HDL Cholesterol 43, TSH 3rd Generation 0.86, RPR Nonreactive Vital Signs Temp Pulse Resp BP Pulse Ox 08/16/16 16:36 69 132/83 08/16/16 06:31 98.6 F 80 20 126/77 08/15/16 16:46 69 138/63 08/15/16 06:52 98.2 F 86 18 143/89 08/14/16 16:20 81 125/79 08/14/16 06:00 97.4 F L 69 18 120/84 08/13/16 16:44 73 147/86 08/13/16 06:38 98.2 F 83 19 138/82 08/12/16 14:00 61 123/80 08/12/16 06:53 97.8 F 61 16 99/63 L 100 08/11/16 14:00 79 136/90 08/11/16 06:00 97.9 F 60 16 114/75 08/10/16 16:22 69 120/85 08/10/16 06:00 97.9 F 57 L 16 116/69 08/09/16 21:06 20 Temp Pulse Resp BP Pulse Ox 97.1 F L 92 H 20 127/83 100 08/19/16 07:26 08/19/16 07:26 08/19/16 07:26 08/19/16 07:26 08/12/16 06:53 Temp Pulse Resp BP Pulse Ox 97.2 F L 80 20 117/61 100 08/21/16 07:27 08/21/16 07:27 08/21/16 07:27 08/21/16 07:27 08/12/16 06:53 Temp Pulse Resp BP Pulse Ox 97.7 F 92 H 20 142/92 H 100 08/22/16 06:34 08/22/16 06:34 08/22/16 06:34 08/22/16 06:34 08/12/16 06:53 Temp Pulse Resp BP Pulse Ox 97.2 F L 98 H 21 142/88 100 08/23/16 07:15 08/23/16 16:14 08/23/16 07:15 08/23/16 16:14 08/12/16 06:53 DSM 5 Symptoms Update: Patient is a 21-year-old single -[place] male with a history of paranoid schizophrenia, multiple psychiatric hospitalizations (though none noted at this facility) who presented to the emergency room on August 08, 2016 reporting increased paranoia. Patient was seen by overnight pre billing clinician who recommended patient be hospitalized for paranoia as he was notably thought-blocked, guarded and paranoid. Patient refused to sign in for a voluntary admission and a screening was called. During this time his laboratory results returned which indicated markedly elevated total creatine kinase of 6814. Patient was admitted medically for rhabdomyolysis. Psychiatry followed patient on the medical floor for one day before patient was medically cleared and transferred to the psychiatric unit. some positive changes, but pt still psychotic, delusional, pt thought that staff spit on him (no evidence for that), when this press writer address it with pt pt said "I prefer not to talk about it", pt was in agreement to start prolixin, risk, benefits and alternatives discussed with pt. wrote some rap lyrics saying that he is "trapped". pt pt's insight is improving. affect is more reactive. goals for tx as per pt : "to be relaxed, have self confidence, be a better person". pt tolerates medications well, no side effects observed or reported. Aims 0 no EPS Diagnostic Results: Chronic Paranoid Schizophrenia Medication Change: Yes (prolixin started) Medical Record Reviewed: Yes (notes, reports, labs, vitals) Consults ordered or reviewed: medical consult appreciated Mental Status Examination - Cognitive Function Orientation: Person, Place Attention: Poor (somewhat better) Concentration: Poor (somewhat better) Association: Loose Fund of Knowledge: Poor - Mood Mood: Other ("doing better") - Affect Affect: Constricted, Blunted, Flat - Speech Speech: Appropriate - Formal Thought Process Formal Thought Process: Hallucinations (denied), Delusions (pt thought PCP spit on him), Paranoia, Loosening of associations - Suicidal Ideation Suicidal Ideation: No - Homicidal Ideation Homicidal Ideation: No Goal/Treatment Plan - Goal/Treatment Plan Need for Continued Stay: Remain at risks for inpatient hospitalization, Severe depression anxiety, Discharge may exacerbated symptoms, Severe functional impairment Progress Toward Problem(s) and Goals/Treatment Plan: milieu, structure, supportive therapy Zyprexa Zydis 10 mg at the morning time 20 mg at the nighttime for psychosis Ativan 1 mg at the morning time 2 mg at the nighttime for catatonia and anxiety prolixin 5mg amhs for psychosis Cogentin 1 mg amhs for possible EPS Social work evaluation Medical consult appreciated We'll monitor closely Possible family involvement Family meeting will be requested family meeting requested tomorrow. Estimated Date of D/C: 08/28/16 (we'll monitor closely)
[2016-08-24] MEDS: OLANZapine 5 mg Disintegrating Tab PO SCH ×2 (08:14→21:04)
--- NOTE | 2016-08-24 09:22 | CP.PCM.CON ---
<Glendy Rodriguez - Last Filed: 08/24/16 09:17> History of Present Illness - History of Present Illness History of Present Illness: Mr. Ray is a 21 yo male patient w/ pmhx paranoid schizophrenia S&E at bedside in psych today following request for podiatry consult. Pt says that he has calluses on both feet that he has had for a while now and bother him in shoes, denies any carmen pain to the feet. Also says he has discoloration to the right second toe, denies any recent trauma says it has been like this for about 1 week. Denies any pain to the toe. Denies any other pedal complaints. Past Patient History - Infectious Disease Hx of Infectious Diseases: None - Tetanus Immunizations Tetanus Immunization: Unknown - Past Medical History & Family History Past Medical History?: Yes - Past Social History Smoking Status: Never Smoked Alcohol: None Drugs: Denies Home Situation {Lives}: With Family - CARDIAC Hx Cardiac Disorders: No Hx Hypertension: No - PULMONARY Hx Tuberculosis: No - NEUROLOGICAL HX Cerebrovascular Accident: No Hx Seizures: No - HEENT Hx HEENT Problems: No - RENAL Hx Chronic Kidney Disease: No - ENDOCRINE/METABOLIC Hx Endocrine Disorders: No - HEMATOLOGICAL/ONCOLOGICAL Hx Blood Disorders: No Hx Cancer: No Hx Human Immunodeficiency Virus (HIV): No - INTEGUMENTARY Hx Dermatological Problems: No - MUSCULOSKELETAL/RHEUMATOLOGICAL Hx Musculoskeletal Disorders: No Hx Falls: No - GASTROINTESTINAL Hx Gastrointestinal Disorders: No - GENITOURINARY/GYNECOLOGICAL Hx Genitourinary Disorders: No Hx Sexually Transmitted Disorders: No - PSYCHIATRIC Hx Physical Abuse: No Hx Schizophrenia: Yes - SURGICAL HISTORY Hx Surgeries: No - ANESTHESIA Hx Anesthesia: No Meds Allergies/Adverse Reactions: Allergies Allergy/AdvReac Type Severity Reaction Status Date / Time No Known Allergies Allergy Verified 08/09/16 20:59 - Medications Medications: Current Medications Acetaminophen (Tylenol 325mg Tab) 650 mg PO Q4H PRN PRN Reason: Pain, Mild (1-3) Last Admin: 08/22/16 09:04 Dose: 650 mg Al Hydrox/Mg Hydrox/Simethicone (Maalox Plus 30 Ml) 30 ml PO DAILY PRN PRN Reason: Upset Stomach Benztropine Mesylate (Cogentin) 1 mg PO AMHS PETRA Last Admin: 08/23/16 21:19 Dose: 1 mg Fluphenazine HCl (Prolixin) 5 mg PO AMHS PETRA PRN Reason: Protocol Last Admin: 08/23/16 21:18 Dose: 5 mg Lorazepam (Ativan) 1 mg PO DAILY PETRA PRN Reason: Protocol Last Admin: 08/24/16 08:13 Dose: 1 mg Lorazepam (Ativan) 2 mg PO HS PETRA Last Admin: 08/23/16 21:17 Dose: 2 mg Magnesium Hydroxide (Milk Of Magnesia) 30 ml PO DAILY PRN PRN Reason: Constipation Olanzapine (Zyprexa Zydis) 10 mg PO DAILY PETRA PRN Reason: Protocol Last Admin: 08/24/16 08:14 Dose: 10 mg Olanzapine (Zyprexa Zydis) 20 mg PO HS PETRA PRN Reason: Protocol Last Admin: 08/23/16 21:18 Dose: 20 mg Physical Exam - Constitutional Appears: Non-toxic, No Acute Distress - Extremities Exam Additional comments: Bilateral lower extremity exam: VASC- DP/PT pulses fully palpable BL, skin temp runs warm to cool BL, cap refill < 3 sec to digits x 10, no pedal edema DERM- hyperkeratotic lesions noted to medial aspect hallux IPJ BL, hyperkeratotic lesion noted to lateral aspect of left proximal heel, discoloration of right 2nd toenail and hematoma-like changes noted to distal aspect of toe (does jose luis) NEURO- grossly intact ORTHO- pes planus of feet bl - Neurological Exam Neurological exam: Alert, CN II-XII Intact, Oriented x3 - Psychiatric Exam Psychiatric exam: Normal Affect, Normal Mood Results - Vital Signs Recent Vital Signs: Last Vital Signs Temp 97.7 F 08/24/16 06:21 Pulse 75 08/24/16 06:21 Resp 20 08/24/16 06:21 BP 158/93 H 08/24/16 06:21 Pulse Ox 100 08/12/16 06:53 Assessment & Plan - Assessment and Plan (Free Text) Assessment: 21 yo male patient seen in psych unit today w/ bilateral foot calluses secondary to pressure and dry hematoma of right 2nd nail bed/distal toe likely secondary to trauma Plan: Pt S&E at bedside Plan discussed w/ Dr. Beck Chart, labs vitals reviewed Calluses debrided w/ sterile #15 blade (patient tolerated well without incident) Discussed w/ pt that right 2nd toe discoloration is likely from microtrauma in shoes Rx for ammonium lactate, to be applied to feet bl to alleviate dry skin and calluses Stable per podiatry Podiatry to sign off. Please re-consult if 2nd toe does not improve. <VasuannetteKetan rodriguez - Last Filed: 08/27/16 08:16> Meds - Medications Medications: Current Medications Acetaminophen (Tylenol 325mg Tab) 650 mg PO Q4H PRN PRN Reason: Pain, Mild (1-3) Last Admin: 08/22/16 09:04 Dose: 650 mg Al Hydrox/Mg Hydrox/Simethicone (Maalox Plus 30 Ml) 30 ml PO DAILY PRN PRN Reason: Upset Stomach Benztropine Mesylate (Cogentin) 1 mg PO AMHS PETRA Last Admin: 08/26/16 22:41 Dose: 1 mg Clozapine (Clozaril) 12.5 mg PO HS PETRA PRN Reason: Protocol Last Admin: 08/26/16 22:41 Dose: 12.5 mg Lactic Acid (Lac-Hydrin 12% Cream (140 G)) 0 ea TOP BID PETRA Last Admin: 08/26/16 08:38 Dose: 1 applic Lorazepam (Ativan) 1 mg PO DAILY PETRA PRN Reason: Protocol Last Admin: 08/26/16 08:37 Dose: 1 mg Lorazepam (Ativan) 2 mg PO HS PETRA Last Admin: 08/26/16 22:40 Dose: 2 mg Magnesium Hydroxide (Milk Of Magnesia) 30 ml PO DAILY PRN PRN Reason: Constipation Olanzapine (Zyprexa Zydis) 10 mg PO DAILY PETRA PRN Reason: Protocol Last Admin: 08/26/16 08:37 Dose: 10 mg Results - Vital Signs Recent Vital Signs: Last Vital Signs Temp 97.7 F 08/27/16 07:06 Pulse 86 08/27/16 07:06 Resp 20 08/27/16 07:06 BP 133/83 08/27/16 07:06 Pulse Ox 100 08/12/16 06:53 - Labs Result Diagrams: 08/26/16 12:40 Labs: Laboratory Results - last 24 hr 08/26/16 12:40 WBC 9.7 D RBC 4.66 Hgb 14.6 Hct 42.1 MCV 90.3 MCH 31.3 MCHC 34.7 RDW 12.7 Plt Count 209 MPV 10.7 Gran % 73.2 H Lymph % (Auto) 18.6 L Lea % (Auto) 7.0 H Eos % (Auto) 1.0 L Baso % (Auto) 0.2 Gran # 7.13 H Lymph # 1.8 Lea # 0.7 H Eos # 0.1 Baso # 0.02 Attending/Attestation - Attestation I have personally seen and examined this patient.: Yes I have fully participated in the care of the patient.: Yes I have reviewed all pertinent clinical information: Yes
--- NOTE | 2016-08-24 09:32 | PCM.PYCHPN ---
Psychiatric Progress Note - Psychiatric Progress Note Patient seen today, length of contact: 25 minutes Patient Chief Complaint: "doing better" Problems Identified/Issues Discussed: I reviewed recent notes and met with patient in the dayroom. Patient remains oriented to month, year and circumstances. He continues to appear disengaged and superficially cooperative. Affect remains withdrawn and internally preoccupied. There has been some improvement in concentration and overall orientation to circumstances. Thought blocking also continues to improve and patient's speech is notably more spontaneous though still underproductive. He can respond to questioning with more elaboration and thought process is showing continued improvement in clarity and focus while on this unit. However thoughts aren't always connected. Patient flatly continues to report that he is "doing better". He denies any current discomfort or pain. He also denies any side effects from his medications. Patient is denying hallucinations. Nursing notes indicate that patient had delusions that staff members were spitting on him. He does not bring up this belief during our conversation He still keeps to himself most of the time and doesn't seek out social interaction. There were no major behavioral issues over the weekend. Diagnostic Results: Chronic Paranoid Schizophrenia Medication Change: No ( ) Medical Record Reviewed: Yes (notes, reports, labs, vitals) Mental Status Examination - Cognitive Function Orientation: Person, Place Attention: Poor (somewhat better) Concentration: Poor (somewhat better) Association: Loose Fund of Knowledge: Poor - Mood Mood: Other ("doing better") - Affect Affect: Constricted, Blunted, Flat - Speech Speech: Appropriate - Formal Thought Process Formal Thought Process: Hallucinations (denied), Delusions (pt thought PCP spit on him), Paranoia, Loosening of associations - Suicidal Ideation Suicidal Ideation: No - Homicidal Ideation Homicidal Ideation: No Goal/Treatment Plan - Goal/Treatment Plan Need for Continued Stay: Remain at risks for inpatient hospitalization, Severe depression anxiety, Discharge may exacerbated symptoms, Severe functional impairment Progress Toward Problem(s) and Goals/Treatment Plan: * Group, milieu and supportive tx * Appreciate f/u by Podiatry, Dr. Rodriguez~Calluses debrided and ammonium lactate, to be applied to feet bl to alleviate dry skin and calluses * No new labs overnight * Vitals reviewed and noted below: Selected Entries 08/23/16 08/23/16 07:15 16:14 Temperature 97.2 F L Pulse Rate 79 98 H Respiratory 21 Rate Blood Pressure 117/81 142/88 Estimated Date of D/C: 08/28/16 (we'll monitor closely)
[2016-08-24] MEDS: Ammonium Lactate 12% Cream (140 g) TOP SCH (16:24)
[2016-08-24] MEDS ORDERED: DiphenhydrAMINE 50 mg/ml Inj ONE (20:48)
[2016-08-24] MEDS ORDERED: DiphenhydrAMINE 50 mg/ml Inj IM ONE (20:56)
[2016-08-25] MEDS: OLANZapine 5 mg Disintegrating Tab PO SCH ×2 (08:18→21:35)
[2016-08-25] MEDS: Ammonium Lactate 12% Cream (140 g) TOP SCH ×2 (08:19→16:30)
--- NOTE | 2016-08-25 08:28 | PCM.PYCHPN ---
Psychiatric Progress Note - Psychiatric Progress Note Patient seen today, length of contact: 25 minutes Patient Chief Complaint: "doing better" Problems Identified/Issues Discussed: I reviewed recent notes and met with patient at bedside. Patient remains oriented to month, year and circumstances. Grooming is adequate. He continues to appear disengaged and superficially cooperative with my questioning. His affect also remains odd, withdrawn and internally preoccupied. However there has been some improvement in concentration and overall orientation to circumstances. Thought blocking also continues to improve and patient's speech is notably more spontaneous though still underproductive. He can respond to questioning with more elaboration and thought process is showing continued improvement in clarity and focus while on this unit. However his thoughts aren' t always connected and paranoia remains. Patient flatly continues to report that he is "doing better". He denies any side effects, current discomfort or pain. Reports the discomfort in his feet is improved s/p visit by podiatry yesterday. No recurrence of EPS symptoms. Patient is denying hallucinations. Nursing notes indicate that patient had delusions that staff members were spitting on him. He does not bring up this belief during our conversations this weekend. He still keeps to himself most of the time and doesn't seek out social interaction. There were no major behavioral issues over the weekend. Of note: patient received Benadryl 25 mg IM x1 at 8pm for c/o neck rigidity on Diagnostic Results: Chronic Paranoid Schizophrenia Medication Change: No ( ) Medical Record Reviewed: Yes (notes, reports, labs, vitals) Mental Status Examination - Cognitive Function Orientation: Person, Place Attention: Poor (somewhat better) Concentration: Poor (somewhat better) Association: Loose Fund of Knowledge: Poor - Mood Mood: Other ("doing better") - Affect Affect: Constricted, Blunted, Flat - Speech Speech: Appropriate - Formal Thought Process Formal Thought Process: Hallucinations (denied), Delusions (pt thought PCP spit on him), Paranoia (persists), Loosening of associations - Suicidal Ideation Suicidal Ideation: No - Homicidal Ideation Homicidal Ideation: No Goal/Treatment Plan - Goal/Treatment Plan Need for Continued Stay: Remain at risks for inpatient hospitalization, Severe depression anxiety, Discharge may exacerbated symptoms, Severe functional impairment Progress Toward Problem(s) and Goals/Treatment Plan: * Group, milieu and supportive tx * Appreciate f/u by Podiatry, Dr. Rodriguez~Calluses debrided and ammonium lactate, to be applied to feet bl to alleviate dry skin and calluses * No new weekend labs * Vitals reviewed and noted below: Selected Entries 08/25/16 07:27 Temperature 97.8 F Pulse Rate 87 Respiratory 18 Rate Blood Pressure 137/82 * Of note: patient received Benadryl 25 mg IM x1 at 8pm for c/o neck rigidity on 08/24/16 Estimated Date of D/C: 08/28/16 (we'll monitor closely)
[2016-08-26] MEDS: OLANZapine 5 mg Disintegrating Tab PO SCH (08:37)
[2016-08-26] MEDS: Ammonium Lactate 12% Cream (140 g) TOP SCH (08:38)
[2016-08-26] MEDS ORDERED: OLANZapine 10 mg Disintegrating Tab PO SCH (12:02)
[2016-08-26 13:01] LABS: ADD MANUAL DIFF? NO
[2016-08-26 13:09] LABS: BASO # 0.02 K/mm3 (0.0-2.0); BASO % 0.2 % (0.0-3.0); EOS # 0.1 (0.0-0.7); GRAN # 7.13 (1.4-6.5); GRAN % 73.2 % (50.0-68.0); HEMATOCRIT 42.1 % (42.0-52.0); LYMPH # 1.8 (1.2-3.4); LYMPH % 18.6 % (22.0-35.0); MEAN CELL VOLUME 90.3 fL (80.0-105.0); MEAN CORPUSCULAR HEMOGLOBIN 31.3 pg (25.0-35.0); MEAN CORPUSCULAR HGB CONC 34.7 g/dl (31.0-37.0); MEAN PLATELET VOLUME 10.7 fl (7.0-11.0); MONO # 0.7 (0.1-0.6); PLATELET COUNT 209 10^3/uL (120.0-450.0); RED CELL DISTRIBUTION WIDTH 12.7 % (11.5-14.5); WHITE BLOOD COUNT 9.7 10^3/ul (4.5-11.0)
--- NOTE | 2016-08-26 17:15 | PCM.PYCHPN ---
Psychiatric Progress Note - Psychiatric Progress Note Patient seen today, length of contact: 40 minutes Patient Chief Complaint: "I prefer not to talk about it" Problems Identified/Issues Discussed: Suicide/ homicide prevention, past psychiatric h/o, current psychiatric symptoms , medical problems, risk/benefits and alternatives of medications, medications compliance, coping strategies, substance abuse h/o, relapse prevention, importance of follow up with psychiatrist and therapist, discharge plan. Medical Problems: rhabdomyolisis is improving Diagnostic Results: Lab Results 08/10/16 07:30: Fasting Glucose 90, Triglycerides 41, Cholesterol 106 L, LDL Cholesterol Direct 55, HDL Cholesterol 43, TSH 3rd Generation 0.86, RPR Nonreactive Vital Signs Temp Pulse Resp BP Pulse Ox 08/16/16 16:36 69 132/83 08/16/16 06:31 98.6 F 80 20 126/77 08/15/16 16:46 69 138/63 08/15/16 06:52 98.2 F 86 18 143/89 08/14/16 16:20 81 125/79 08/14/16 06:00 97.4 F L 69 18 120/84 08/13/16 16:44 73 147/86 08/13/16 06:38 98.2 F 83 19 138/82 08/12/16 14:00 61 123/80 08/12/16 06:53 97.8 F 61 16 99/63 L 100 08/11/16 14:00 79 136/90 08/11/16 06:00 97.9 F 60 16 114/75 08/10/16 16:22 69 120/85 08/10/16 06:00 97.9 F 57 L 16 116/69 08/09/16 21:06 20 Temp Pulse Resp BP Pulse Ox 97.1 F L 92 H 20 127/83 100 08/19/16 07:26 08/19/16 07:26 08/19/16 07:26 08/19/16 07:26 08/12/16 06:53 Temp Pulse Resp BP Pulse Ox 97.2 F L 80 20 117/61 100 08/21/16 07:27 08/21/16 07:27 08/21/16 07:27 08/21/16 07:27 08/12/16 06:53 Temp Pulse Resp BP Pulse Ox 97.7 F 92 H 20 142/92 H 100 08/22/16 06:34 08/22/16 06:34 08/22/16 06:34 08/22/16 06:34 08/12/16 06:53 Temp Pulse Resp BP Pulse Ox 97.2 F L 98 H 21 142/88 100 08/23/16 07:15 08/23/16 16:14 08/23/16 07:15 08/23/16 16:14 08/12/16 06:53 Temp Pulse Resp BP Pulse Ox 97.7 F 94 H 20 143/95 H 100 08/26/16 06:00 08/26/16 16:12 08/26/16 06:00 08/26/16 16:12 08/12/16 06:53 DSM 5 Symptoms Update: Patient is a 21-year-old single -[place] male with a history of paranoid schizophrenia, multiple psychiatric hospitalizations (though none noted at this facility) who presented to the emergency room on August 08, 2016 reporting increased paranoia. Patient was seen by overnight bowling pin refinisher who recommended patient be hospitalized for paranoia as he was notably thought-blocked, guarded and paranoid. Patient refused to sign in for a voluntary admission and a screening was called. During this time his laboratory results returned which indicated markedly elevated total creatine kinase of 6814. Patient was admitted medically for rhabdomyolysis. Psychiatry followed patient on the medical floor for one day before patient was medically cleared and transferred to the psychiatric unit. some positive changes, but pt still psychotic, delusional, pt thought that staff spit on him (no evidence for that, this junior underwriter implemented prolixin for the pt, pt c/o neck stiffness. Pt is not improving as per report pt was asking for "apple souse for egg because I have a hot pepper on it" (no evidence). pt was educated about clozaril, willing to try it. pt was provided with a booklet for the pt's information. Clozaril rems notified, pt registered. affect is more reactive. goals for tx as per pt : "to be relaxed, have self confidence, be a better person". pt has neck stiffness over the weekend. Diagnostic Results: Chronic Paranoid Schizophrenia Medication Change: Yes (clozaril started, Zyprexa is preferred, Prolixin was discontinued) Medical Record Reviewed: Yes (notes, reports, labs, vitals) Consults ordered or reviewed: medical consult appreciated Mental Status Examination - Cognitive Function Orientation: Person, Place Attention: Poor (somewhat better) Concentration: Poor (somewhat better) Association: Loose Fund of Knowledge: Poor - Mood Mood: Other ("doing better") - Affect Affect: Constricted, Blunted, Flat - Speech Speech: Appropriate - Formal Thought Process Formal Thought Process: Hallucinations (denied), Delusions (pt thought PCP spit on him), Paranoia (persists), Loosening of associations - Suicidal Ideation Suicidal Ideation: No - Homicidal Ideation Homicidal Ideation: No Goal/Treatment Plan - Goal/Treatment Plan Need for Continued Stay: Remain at risks for inpatient hospitalization, Severe depression anxiety, Discharge may exacerbated symptoms, Severe functional impairment Progress Toward Problem(s) and Goals/Treatment Plan: milieu, structure, supportive therapy Zyprexa Zydis will be tapered down Prolixin will be discontinued Clozaril was started 12.5 mg at the nighttime with the plan to titrate that up, Labs was admitted to Clozaril [facility] Ativan 1 mg at the morning time 2 mg at the nighttime for catatonia and anxiety Cogentin 1 mg amhs for possible EPS Social work evaluation Medical consult appreciated We'll monitor closely family meeting appreciated last week Estimated Date of D/C: 09/04/16 (we'll monitor closely)
[2016-08-27] MEDS: OLANZapine 5 mg Disintegrating Tab PO SCH (09:08)
[2016-08-27] MEDS: Ammonium Lactate 12% Cream (140 g) TOP SCH (12:08)
--- NOTE | 2016-08-27 15:53 | PCM.PYCHPN ---
Psychiatric Progress Note - Psychiatric Progress Note Patient seen today, length of contact: 30 minutes Patient Chief Complaint: "I I'm concerned about side effects, I feel like my neck is stiff". Problems Identified/Issues Discussed: Suicide/ homicide prevention, past psychiatric h/o, current psychiatric symptoms , medical problems, risk/benefits and alternatives of medications, medications compliance, coping strategies, substance abuse h/o, relapse prevention, importance of follow up with psychiatrist and therapist, discharge plan. Medical Problems: rhabdomyolisis is improving Diagnostic Results: Lab Results 08/10/16 07:30: Fasting Glucose 90, Triglycerides 41, Cholesterol 106 L, LDL Cholesterol Direct 55, HDL Cholesterol 43, TSH 3rd Generation 0.86, RPR Nonreactive Vital Signs Temp Pulse Resp BP Pulse Ox 08/16/16 16:36 69 132/83 08/16/16 06:31 98.6 F 80 20 126/77 08/15/16 16:46 69 138/63 08/15/16 06:52 98.2 F 86 18 143/89 08/14/16 16:20 81 125/79 08/14/16 06:00 97.4 F L 69 18 120/84 08/13/16 16:44 73 147/86 08/13/16 06:38 98.2 F 83 19 138/82 08/12/16 14:00 61 123/80 08/12/16 06:53 97.8 F 61 16 99/63 L 100 08/11/16 14:00 79 136/90 08/11/16 06:00 97.9 F 60 16 114/75 08/10/16 16:22 69 120/85 08/10/16 06:00 97.9 F 57 L 16 116/69 08/09/16 21:06 20 Temp Pulse Resp BP Pulse Ox 97.1 F L 92 H 20 127/83 100 08/19/16 07:26 08/19/16 07:26 08/19/16 07:26 08/19/16 07:26 08/12/16 06:53 Temp Pulse Resp BP Pulse Ox 97.2 F L 80 20 117/61 100 08/21/16 07:27 08/21/16 07:27 08/21/16 07:27 08/21/16 07:27 08/12/16 06:53 Temp Pulse Resp BP Pulse Ox 97.7 F 92 H 20 142/92 H 100 08/22/16 06:34 08/22/16 06:34 08/22/16 06:34 08/22/16 06:34 08/12/16 06:53 Temp Pulse Resp BP Pulse Ox 97.2 F L 98 H 21 142/88 100 08/23/16 07:15 08/23/16 16:14 08/23/16 07:15 08/23/16 16:14 08/12/16 06:53 Temp Pulse Resp BP Pulse Ox 97.7 F 94 H 20 143/95 H 100 08/26/16 06:00 08/26/16 16:12 08/26/16 06:00 08/26/16 16:12 08/12/16 06:53 DSM 5 Symptoms Update: Patient is a 21-year-old single -Citizen Of [place] male with a history of paranoid schizophrenia, multiple psychiatric hospitalizations (though none noted at this facility) who presented to the emergency room on August 08, 2016 reporting increased paranoia. Patient was seen by overnight instructor tap dancing who recommended patient be hospitalized for paranoia as he was notably thought-blocked, guarded and paranoid. Patient refused to sign in for a voluntary admission and a screening was called. During this time his laboratory results returned which indicated markedly elevated total creatine kinase of 6814. Patient was admitted medically for rhabdomyolysis. Psychiatry followed patient on the medical floor for one day before patient was medically cleared and transferred to the psychiatric unit. some positive changes, but pt still psychotic, delusional, as per report no episodes of acute psychosis, as per staff pt had impression that PCP spit on him , (no evidence for that), pt is little more organized. affect is more reactive. goals for tx as per pt : "to be relaxed, have self confidence, be a better person". pt has neck stiffness over the weekend, not today, AIMS 0, no EPS, no tremor, no cogwheel rigidity . Diagnostic Results: Chronic Paranoid Schizophrenia Medication Change: Yes (Clozaril increased) Medical Record Reviewed: Yes (notes, reports, labs, vitals) Consults ordered or reviewed: medical consult appreciated Mental Status Examination - Cognitive Function Orientation: Person, Place Attention: Poor (somewhat better) Concentration: Poor (somewhat better) Association: Loose Fund of Knowledge: Poor - Mood Mood: Other ("doing better") - Affect Affect: Constricted, Blunted, Flat - Speech Speech: Appropriate - Formal Thought Process Formal Thought Process: Hallucinations (denied), Delusions (pt thought PCP spit on him), Paranoia (persists), Loosening of associations - Suicidal Ideation Suicidal Ideation: No - Homicidal Ideation Homicidal Ideation: No Goal/Treatment Plan - Goal/Treatment Plan Need for Continued Stay: Remain at risks for inpatient hospitalization, Severe depression anxiety, Discharge may exacerbated symptoms, Severe functional impairment Progress Toward Problem(s) and Goals/Treatment Plan: milieu, structure, supportive therapy Zyprexa Zydis will be tapered down Prolixin discontinued Clozaril was started 08/26/16, lab sumbitted to Clozaril REMS 08/26/16, next is Clozaril 50mg po hs with the plan to titrate that up, Ativan 1 mg at the morning time 2 mg at the nighttime for catatonia and anxiety Cogentin 1 mg amhs for possible EPS Social work evaluation Medical consult appreciated We'll monitor closely family meeting appreciated last week Estimated Date of D/C: 09/04/16 (we'll monitor closely)
[2016-08-28] MEDS: Ammonium Lactate 12% Cream (140 g) TOP SCH ×2 (09:00→12:55)
[2016-08-28] MEDS: OLANZapine 5 mg Disintegrating Tab PO SCH (09:23)
--- NOTE | 2016-08-28 15:39 | PCM.PYCHPN ---
Psychiatric Progress Note - Psychiatric Progress Note Patient seen today, length of contact: 30 minutes Patient Chief Complaint: "I am hm, I am just fine, hm, you know, hm...." Problems Identified/Issues Discussed: Suicide/ homicide prevention, past psychiatric h/o, current psychiatric symptoms , medical problems, risk/benefits and alternatives of medications, medications compliance, coping strategies, substance abuse h/o, relapse prevention, importance of follow up with psychiatrist and therapist, discharge plan. Medical Problems: rhabdomyolisis is improving Diagnostic Results: Lab Results 08/10/16 07:30: Fasting Glucose 90, Triglycerides 41, Cholesterol 106 L, LDL Cholesterol Direct 55, HDL Cholesterol 43, TSH 3rd Generation 0.86, RPR Nonreactive Vital Signs Temp Pulse Resp BP Pulse Ox 08/16/16 16:36 69 132/83 08/16/16 06:31 98.6 F 80 20 126/77 08/15/16 16:46 69 138/63 08/15/16 06:52 98.2 F 86 18 143/89 08/14/16 16:20 81 125/79 08/14/16 06:00 97.4 F L 69 18 120/84 08/13/16 16:44 73 147/86 08/13/16 06:38 98.2 F 83 19 138/82 08/12/16 14:00 61 123/80 08/12/16 06:53 97.8 F 61 16 99/63 L 100 08/11/16 14:00 79 136/90 08/11/16 06:00 97.9 F 60 16 114/75 08/10/16 16:22 69 120/85 08/10/16 06:00 97.9 F 57 L 16 116/69 08/09/16 21:06 20 Temp Pulse Resp BP Pulse Ox 97.1 F L 92 H 20 127/83 100 08/19/16 07:26 08/19/16 07:26 08/19/16 07:26 08/19/16 07:26 08/12/16 06:53 Temp Pulse Resp BP Pulse Ox 97.2 F L 80 20 117/61 100 08/21/16 07:27 08/21/16 07:27 08/21/16 07:27 08/21/16 07:27 08/12/16 06:53 Temp Pulse Resp BP Pulse Ox 97.7 F 92 H 20 142/92 H 100 08/22/16 06:34 08/22/16 06:34 08/22/16 06:34 08/22/16 06:34 08/12/16 06:53 Temp Pulse Resp BP Pulse Ox 97.2 F L 98 H 21 142/88 100 08/23/16 07:15 08/23/16 16:14 08/23/16 07:15 08/23/16 16:14 08/12/16 06:53 Temp Pulse Resp BP Pulse Ox 97.7 F 94 H 20 143/95 H 100 08/26/16 06:00 08/26/16 16:12 08/26/16 06:00 08/26/16 16:12 08/12/16 06:53 DSM 5 Symptoms Update: Patient is a 21-year-old single -[place] male with a history of paranoid schizophrenia, multiple psychiatric hospitalizations (though none noted at this facility) who presented to the emergency room on August 08, 2016 reporting increased paranoia. Patient was seen by overnight rouge presser who recommended patient be hospitalized for paranoia as he was notably thought-blocked, guarded and paranoid. Patient refused to sign in for a voluntary admission and a screening was called. During this time his laboratory results returned which indicated markedly elevated total creatine kinase of 6814. Patient was admitted medically for rhabdomyolysis. Psychiatry followed patient on the medical floor for one day before patient was medically cleared and transferred to the psychiatric unit. some positive changes, but pt still psychotic, delusional, as per report no episodes of acute psychosis, as per staff pt still has disorganized thoughts. from this telegraphic typewriter installer observation, pt has good hygiene, affect is more reactive, still has severe thought blocking, but more talkative, pt has poverty of speech and thoughts. pt has neck stiffness over the weekend, not today, AIMS 0, no EPS, no tremor, no cogwheel rigidity . overall patient tolerates medication well, no side effects observed or reported , aims 0, no EPS. Diagnostic Results: Chronic Paranoid Schizophrenia Medication Change: Yes (Clozaril increased) Medical Record Reviewed: Yes (notes, reports, labs, vitals) Consults ordered or reviewed: medical consult appreciated Mental Status Examination - Cognitive Function Orientation: Person, Place Attention: Poor (somewhat better) Concentration: Poor (somewhat better) Association: Loose Fund of Knowledge: Poor - Mood Mood: Other ("doing better") - Affect Affect: Constricted, Blunted, Flat - Speech Speech: Appropriate - Formal Thought Process Formal Thought Process: Hallucinations (denied), Delusions (pt thought PCP spit on him), Paranoia (persists), Loosening of associations - Suicidal Ideation Suicidal Ideation: No - Homicidal Ideation Homicidal Ideation: No Goal/Treatment Plan - Goal/Treatment Plan Need for Continued Stay: Remain at risks for inpatient hospitalization, Severe depression anxiety, Discharge may exacerbated symptoms, Severe functional impairment Progress Toward Problem(s) and Goals/Treatment Plan: milieu, structure, supportive therapy Zyprexa Zydis will be tapered down Prolixin discontinued Clozaril was started 08/26/16, lab sumbitted to Clozaril [facility]S 08/26/16, next is Clozaril 50mg po amhs with the plan to titrate that up, Ativan 1 mg at the morning time 2 mg at the nighttime for catatonia and anxiety Cogentin 1 mg amhs for possible EPS Social work evaluation Medical consult appreciated We'll monitor closely family meeting appreciated last week Estimated Date of D/C: 09/04/16 (we'll monitor closely)
[2016-08-29] MEDS: OLANZapine 5 mg Disintegrating Tab PO SCH (09:16)
[2016-08-29] MEDS: Ammonium Lactate 12% Cream (140 g) TOP SCH ×2 (10:42→18:09)
--- NOTE | 2016-08-29 16:18 | PCM.PYCHPN ---
Psychiatric Progress Note - Psychiatric Progress Note Patient seen today, length of contact: 30 minutes Patient Chief Complaint: "I am hm, I am just fine, hm, you know, hm...." Problems Identified/Issues Discussed: Suicide/ homicide prevention, past psychiatric h/o, current psychiatric symptoms , medical problems, risk/benefits and alternatives of medications, medications compliance, coping strategies, substance abuse h/o, relapse prevention, importance of follow up with psychiatrist and therapist, discharge plan. Medical Problems: rhabdomyolisis is improving Diagnostic Results: Lab Results 08/10/16 07:30: Fasting Glucose 90, Triglycerides 41, Cholesterol 106 L, LDL Cholesterol Direct 55, HDL Cholesterol 43, TSH 3rd Generation 0.86, RPR Nonreactive Vital Signs Temp Pulse Resp BP Pulse Ox 08/16/16 16:36 69 132/83 08/16/16 06:31 98.6 F 80 20 126/77 08/15/16 16:46 69 138/63 08/15/16 06:52 98.2 F 86 18 143/89 08/14/16 16:20 81 125/79 08/14/16 06:00 97.4 F L 69 18 120/84 08/13/16 16:44 73 147/86 08/13/16 06:38 98.2 F 83 19 138/82 08/12/16 14:00 61 123/80 08/12/16 06:53 97.8 F 61 16 99/63 L 100 08/11/16 14:00 79 136/90 08/11/16 06:00 97.9 F 60 16 114/75 08/10/16 16:22 69 120/85 08/10/16 06:00 97.9 F 57 L 16 116/69 08/09/16 21:06 20 Temp Pulse Resp BP Pulse Ox 97.1 F L 92 H 20 127/83 100 08/19/16 07:26 08/19/16 07:26 08/19/16 07:26 08/19/16 07:26 08/12/16 06:53 Temp Pulse Resp BP Pulse Ox 97.2 F L 80 20 117/61 100 08/21/16 07:27 08/21/16 07:27 08/21/16 07:27 08/21/16 07:27 08/12/16 06:53 Temp Pulse Resp BP Pulse Ox 97.7 F 92 H 20 142/92 H 100 08/22/16 06:34 08/22/16 06:34 08/22/16 06:34 08/22/16 06:34 08/12/16 06:53 Temp Pulse Resp BP Pulse Ox 97.2 F L 98 H 21 142/88 100 08/23/16 07:15 08/23/16 16:14 08/23/16 07:15 08/23/16 16:14 08/12/16 06:53 Temp Pulse Resp BP Pulse Ox 97.7 F 94 H 20 143/95 H 100 08/26/16 06:00 08/26/16 16:12 08/26/16 06:00 08/26/16 16:12 08/12/16 06:53 Temp Pulse Resp BP Pulse Ox 97.9 F 89 20 132/83 100 08/29/16 07:34 08/29/16 07:34 08/29/16 07:34 08/29/16 07:34 08/12/16 06:53 DSM 5 Symptoms Update: Patient is a 21-year-old single -[place] male with a history of paranoid schizophrenia, multiple psychiatric hospitalizations (though none noted at this facility) who presented to the emergency room on August 08, 2016 reporting increased paranoia. Patient was seen by overnight professor of chemistry who recommended patient be hospitalized for paranoia as he was notably thought-blocked, guarded and paranoid. Patient refused to sign in for a voluntary admission and a screening was called. During this time his laboratory results returned which indicated markedly elevated total creatine kinase of 6814. Patient was admitted medically for rhabdomyolysis. Psychiatry followed patient on the medical floor for one day before patient was medically cleared and transferred to the psychiatric unit. some positive changes pt is more verbal, pt has good hygiene, affect is more reactive, but pt still psychotic, delusional, thought blocking, poverty of thoughts and speech. as per report no episodes of acute psychosis, as per staff pt still has disorganized thoughts. pt has neck stiffness over the weekend, not today, AIMS 0, no EPS, no tremor, no cogwheel rigidity . overall patient tolerates medication well, no side effects observed or reported , aims 0, no EPS. Diagnostic Results: Chronic Paranoid Schizophrenia Medication Change: Yes (Clozaril increased) Medical Record Reviewed: Yes (notes, reports, labs, vitals) Consults ordered or reviewed: medical consult appreciated Mental Status Examination - Cognitive Function Orientation: Person, Place Attention: Poor (somewhat better) Concentration: Poor (somewhat better) Association: Loose Fund of Knowledge: Poor - Mood Mood: Other ("doing better") - Affect Affect: Constricted, Blunted, Flat - Speech Speech: Appropriate - Formal Thought Process Formal Thought Process: Hallucinations (denied), Delusions, Paranoia (persists) , Loosening of associations - Suicidal Ideation Suicidal Ideation: No - Homicidal Ideation Homicidal Ideation: No Goal/Treatment Plan - Goal/Treatment Plan Need for Continued Stay: Remain at risks for inpatient hospitalization, Severe depression anxiety, Discharge may exacerbated symptoms, Severe functional impairment Progress Toward Problem(s) and Goals/Treatment Plan: milieu, structure, supportive therapy Julienne Rao d/c 08/29/16 Prolixin discontinued Clozaril was started 08/26/16, lab sumbitted to Clozaril [facility]S 08/26/16, next is Clozaril (titrating up schedule). Ativan 1 mg at the morning time 2 mg at the nighttime for catatonia and anxiety Cogentin 1 mg amhs for possible EPS Social work evaluation Medical consult appreciated We'll monitor closely family meeting appreciated last week Estimated Date of D/C: 09/04/16 (we'll monitor closely)
[2016-08-30] MEDS: Ammonium Lactate 12% Cream (140 g) TOP SCH ×2 (10:01→18:01)
--- NOTE | 2016-08-30 18:01 | PCM.PYCHPN ---
Psychiatric Progress Note - Psychiatric Progress Note Patient seen today, length of contact: 30 minutes Patient Chief Complaint: "I am hm, I am just fine, but my hearts are beating fast, may be I am anxious". Problems Identified/Issues Discussed: Suicide/ homicide prevention, past psychiatric h/o, current psychiatric symptoms , medical problems, risk/benefits and alternatives of medications, medications compliance, coping strategies, substance abuse h/o, relapse prevention, importance of follow up with psychiatrist and therapist, discharge plan. Medical Problems: rhabdomyolisis improved Diagnostic Results: Lab Results 08/10/16 07:30: Fasting Glucose 90, Triglycerides 41, Cholesterol 106 L, LDL Cholesterol Direct 55, HDL Cholesterol 43, TSH 3rd Generation 0.86, RPR Nonreactive Vital Signs Temp Pulse Resp BP Pulse Ox 08/16/16 16:36 69 132/83 08/16/16 06:31 98.6 F 80 20 126/77 08/15/16 16:46 69 138/63 08/15/16 06:52 98.2 F 86 18 143/89 08/14/16 16:20 81 125/79 08/14/16 06:00 97.4 F L 69 18 120/84 08/13/16 16:44 73 147/86 08/13/16 06:38 98.2 F 83 19 138/82 08/12/16 14:00 61 123/80 08/12/16 06:53 97.8 F 61 16 99/63 L 100 08/11/16 14:00 79 136/90 08/11/16 06:00 97.9 F 60 16 114/75 08/10/16 16:22 69 120/85 08/10/16 06:00 97.9 F 57 L 16 116/69 08/09/16 21:06 20 Temp Pulse Resp BP Pulse Ox 97.1 F L 92 H 20 127/83 100 08/19/16 07:26 08/19/16 07:26 08/19/16 07:26 08/19/16 07:26 08/12/16 06:53 Temp Pulse Resp BP Pulse Ox 97.2 F L 80 20 117/61 100 08/21/16 07:27 08/21/16 07:27 08/21/16 07:27 08/21/16 07:27 08/12/16 06:53 Temp Pulse Resp BP Pulse Ox 97.7 F 92 H 20 142/92 H 100 08/22/16 06:34 08/22/16 06:34 08/22/16 06:34 08/22/16 06:34 08/12/16 06:53 Temp Pulse Resp BP Pulse Ox 97.2 F L 98 H 21 142/88 100 08/23/16 07:15 08/23/16 16:14 08/23/16 07:15 08/23/16 16:14 08/12/16 06:53 Temp Pulse Resp BP Pulse Ox 97.7 F 94 H 20 143/95 H 100 08/26/16 06:00 08/26/16 16:12 08/26/16 06:00 08/26/16 16:12 08/12/16 06:53 Temp Pulse Resp BP Pulse Ox 97.9 F 89 20 132/83 100 08/29/16 07:34 08/29/16 07:34 08/29/16 07:34 08/29/16 07:34 08/12/16 06:53 Temp Pulse Resp BP Pulse Ox 97.6 F 110 H 20 135/95 H 100 08/30/16 06:30 08/30/16 16:14 08/30/16 06:30 08/30/16 16:14 08/12/16 06:53 DSM 5 Symptoms Update: Patient is a 21-year-old single -[place] male with a history of paranoid schizophrenia, multiple psychiatric hospitalizations (though none noted at this facility) who presented to the emergency room on August 08, 2016 reporting increased paranoia. Patient was seen by overnight clerk stenographer who recommended patient be hospitalized for paranoia as he was notably thought-blocked, guarded and paranoid. Patient refused to sign in for a voluntary admission and a screening was called. During this time his laboratory results returned which indicated markedly elevated total creatine kinase of 6814. Patient was admitted medically for rhabdomyolysis. Psychiatry followed patient on the medical floor for one day before patient was medically cleared and transferred to the psychiatric unit. some positive changes pt is more verbal, pt has good hygiene, affect is more reactive, but pt still psychotic, delusional, thought blocking, poverty of thoughts and speech, pt still believes that somebody tried to change his identity for , "I don't know why, may be because of my behavior". pt reported that "my heart is beating fast, may be I am anxious", it could be side effect from clozaril, will not increase it today, ativan dose was added. as per report no episodes of acute psychosis, as per staff pt still has disorganized thoughts. pt denied side effects, AIMS 0, no EPS, no tremor, no cogwheel rigidity . Diagnostic Results: Chronic Paranoid Schizophrenia Medication Change: No (pt has tachycardia) Medical Record Reviewed: Yes (notes, reports, labs, vitals) Consults ordered or reviewed: medical consult appreciated Mental Status Examination - Cognitive Function Orientation: Person, Place Attention: Poor (somewhat better) Concentration: Poor (somewhat better) Association: Loose Fund of Knowledge: Poor - Mood Mood: Other ("doing better") - Affect Affect: Constricted, Blunted, Flat - Speech Speech: Appropriate - Formal Thought Process Formal Thought Process: Hallucinations (denied), Delusions, Paranoia (persists) , Loosening of associations - Suicidal Ideation Suicidal Ideation: No - Homicidal Ideation Homicidal Ideation: No Goal/Treatment Plan - Goal/Treatment Plan Need for Continued Stay: Remain at risks for inpatient hospitalization, Severe depression anxiety, Discharge may exacerbated symptoms, Severe functional impairment Progress Toward Problem(s) and Goals/Treatment Plan: milieu, structure, supportive therapy Lindaypradha Rao d/c 08/29/16 Prolixin discontinued Clozaril was started 08/26/16, lab sumbitted to Clozaril [facility]S 08/26/16, next is Clozaril (titrating up schedule). today was 25mg am and 50mg hs, please monitor Ps ativan was increased to 1mg bid and 2mg at the nighttime for catatonia and anxiety Cogentin 1 mg amhs for possible EPS Social work evaluation Medical consult appreciated We'll monitor closely family meeting appreciated last week Estimated Date of D/C: 09/04/16 (we'll monitor closely)
--- NOTE | 2016-08-31 08:34 | PCM.PYCHPN ---
Psychiatric Progress Note - Psychiatric Progress Note Patient seen today, length of contact: 25 minutes Patient Chief Complaint: "doing better" Problems Identified/Issues Discussed: I reviewed recent notes and met with patient at bedside. Patient remains oriented to month, year and circumstances. Grooming is adequate. He continues to appear disengaged and superficially cooperative with my questioning. His affect remains odd, blunt and withdrawn. Thought blocking continues to improve and patient's speech is notably more spontaneous than at admission though still underproductive. He can respond to questioning with more elaboration and thought process is showing some improvement in clarity and focus while on this unit. However his thoughts aren't always connected and paranoia remains. I try discussing his recent medication changes and he appears disengaged. Overall comprehension and appreciation of current diagnosis remains poor. Patient flatly continues to report that he is "doing better". He denies any side effects, current discomfort or pain. Patient is denying hallucinations. States "no, not really". He still keeps to himself and appears preoccupied. There were no major behavioral issues over the weekend. Diagnostic Results: Chronic Paranoid Schizophrenia Medication Change: No (pt has tachycardia) Medical Record Reviewed: Yes (notes, reports, labs, vitals) Mental Status Examination - Cognitive Function Orientation: Person, Place Attention: Poor (somewhat better) Concentration: Poor (somewhat better) Association: Loose Fund of Knowledge: Poor - Mood Mood: Other ("doing better") - Affect Affect: Constricted, Blunted, Flat - Speech Speech: Appropriate - Formal Thought Process Formal Thought Process: Hallucinations ("no, not really"), Delusions, Paranoia ( persists), Loosening of associations - Suicidal Ideation Suicidal Ideation: No - Homicidal Ideation Homicidal Ideation: No Goal/Treatment Plan - Goal/Treatment Plan Need for Continued Stay: Remain at risks for inpatient hospitalization, Severe depression anxiety, Discharge may exacerbated symptoms, Severe functional impairment Progress Toward Problem(s) and Goals/Treatment Plan: * Group, milieu and supportive tx * Clozaril was started 08/26/16, lab sumbitted to Clozaril [facility]S 08/26/16, next is 09/02/16 Clozaril (titrating up schedule), will hold at 25/50 due to elevated pulse rates * No new weekend labs * Vitals reviewed and noted below: Selected Entries 08/30/16 08/30/16 06:30 16:14 Temperature 97.6 F Pulse Rate 111 H 110 H Respiratory 20 Rate Blood Pressure 135/92 H 135/95 H Estimated Date of D/C: 09/04/16 (we'll monitor closely)
[2016-08-31] MEDS: Ammonium Lactate 12% Cream (140 g) TOP SCH ×2 (12:24→17:25)
[2016-09-01] MEDS: Ammonium Lactate 12% Cream (140 g) TOP SCH ×2 (08:19→16:39)
--- NOTE | 2016-09-01 09:06 | PCM.PYCHPN ---
Psychiatric Progress Note - Psychiatric Progress Note Patient seen today, length of contact: 25 minutes Patient Chief Complaint: "doing better" Problems Identified/Issues Discussed: I reviewed recent notes and met with patient at bedside. Patient remains oriented to month, year and circumstances. Grooming is adequate. He continues to appear disengaged and superficially cooperative with my questioning. His affect remains odd, blunt and withdrawn. Thought blocking persists but improved since admission. His speech is also notably more spontaneous though still underproductive. He can respond to questioning with more elaboration and thought process is showing some improvement in clarity and focus while on this unit. However his thoughts aren't always connected and paranoia remains. Overall comprehension and appreciation of current diagnosis remain poor. Patient flatly continues to report that he is "doing better". He denies any side effects, current discomfort or pain. Patient reports having auditory hallucinations yesterday. States the voices tell him "information". He is hesitant to elaborate though he denies CAH. Yesterday he also informed staff that he was hearing voices. He was not observed to be responding to internal stimuli during my interview today. He still keeps to himself and appears preoccupied. There were no major behavioral issues over the weekend. Diagnostic Results: Chronic Paranoid Schizophrenia Medication Change: No (pt has tachycardia) Medical Record Reviewed: Yes (notes, reports, labs, vitals) Mental Status Examination - Cognitive Function Orientation: Person, Place Attention: Poor (somewhat better) Concentration: Poor (somewhat better) Association: Loose Fund of Knowledge: Poor - Mood Mood: Other ("doing better") - Affect Affect: Constricted, Blunted, Flat - Speech Speech: Appropriate - Formal Thought Process Formal Thought Process: Hallucinations ("the voices tell me information"), Delusions, Paranoia (persists), Loosening of associations - Suicidal Ideation Suicidal Ideation: No - Homicidal Ideation Homicidal Ideation: No Goal/Treatment Plan - Goal/Treatment Plan Need for Continued Stay: Remain at risks for inpatient hospitalization, Severe depression anxiety, Discharge may exacerbated symptoms, Severe functional impairment Progress Toward Problem(s) and Goals/Treatment Plan: * Group, milieu and supportive tx * Clozaril was started 08/26/16, lab submitted to Clozaril [facility] 08/26/16, next is 09/02/16 Clozaril (titrating up schedule), will hold at 25/50 due to elevated pulse rates * No new weekend labs * Vitals reviewed and noted below: Selected Entries 08/31/16 09/01/16 06:38 07:37 Temperature 98.2 F 97.9 F Pulse Rate 93 H 91 H Respiratory 20 20 Rate Blood Pressure 137/91 H Estimated Date of D/C: 09/04/16 (we'll monitor closely)
[2016-09-02 07:02] LABS: ADD MANUAL DIFF? NO
[2016-09-02 07:45] LABS: BASO # 0.01 K/mm3 (0.0-2.0); BASO % 0.1 % (0.0-3.0); EOS # 0.2 (0.0-0.7); EOS % 2.9 % (1.5-5.0); GRAN # 4.52 (1.4-6.5); GRAN % 58.7 % (50.0-68.0); HEMATOCRIT 42.4 % (42.0-52.0); LYMPH % 25.3 % (22.0-35.0); MEAN CELL VOLUME 90.4 fL (80.0-105.0); MEAN CORPUSCULAR HEMOGLOBIN 31.1 pg (25.0-35.0); MEAN CORPUSCULAR HGB CONC 34.4 g/dl (31.0-37.0); MEAN PLATELET VOLUME 11.3 fl (7.0-11.0); PLATELET COUNT 176 10^3/uL (120.0-450.0); RED CELL DISTRIBUTION WIDTH 12.5 % (11.5-14.5); WHITE BLOOD COUNT 7.7 10^3/ul (4.5-11.0)
[2016-09-02] MEDS: Ammonium Lactate 12% Cream (140 g) TOP SCH ×2 (11:39→19:16)
--- NOTE | 2016-09-02 14:28 | PCM.PYCHPN ---
Psychiatric Progress Note - Psychiatric Progress Note Patient seen today, length of contact: 25 minutes Patient Chief Complaint: "I am hm, I am just fine, but my hearts are beating fast, may be I am anxious". Problems Identified/Issues Discussed: Suicide/ homicide prevention, past psychiatric h/o, current psychiatric symptoms , medical problems, risk/benefits and alternatives of medications, medications compliance, coping strategies, substance abuse h/o, relapse prevention, importance of follow up with psychiatrist and therapist, discharge plan. Medical Problems: rhabdomyolisis improved Diagnostic Results: Lab Results 08/10/16 07:30: Fasting Glucose 90, Triglycerides 41, Cholesterol 106 L, LDL Cholesterol Direct 55, HDL Cholesterol 43, TSH 3rd Generation 0.86, RPR Nonreactive Vital Signs Temp Pulse Resp BP Pulse Ox 08/16/16 16:36 69 132/83 08/16/16 06:31 98.6 F 80 20 126/77 08/15/16 16:46 69 138/63 08/15/16 06:52 98.2 F 86 18 143/89 08/14/16 16:20 81 125/79 08/14/16 06:00 97.4 F L 69 18 120/84 08/13/16 16:44 73 147/86 08/13/16 06:38 98.2 F 83 19 138/82 08/12/16 14:00 61 123/80 08/12/16 06:53 97.8 F 61 16 99/63 L 100 08/11/16 14:00 79 136/90 08/11/16 06:00 97.9 F 60 16 114/75 08/10/16 16:22 69 120/85 08/10/16 06:00 97.9 F 57 L 16 116/69 08/09/16 21:06 20 Temp Pulse Resp BP Pulse Ox 97.1 F L 92 H 20 127/83 100 08/19/16 07:26 08/19/16 07:26 08/19/16 07:26 08/19/16 07:26 08/12/16 06:53 Temp Pulse Resp BP Pulse Ox 97.2 F L 80 20 117/61 100 08/21/16 07:27 08/21/16 07:27 08/21/16 07:27 08/21/16 07:27 08/12/16 06:53 Temp Pulse Resp BP Pulse Ox 97.7 F 92 H 20 142/92 H 100 08/22/16 06:34 08/22/16 06:34 08/22/16 06:34 08/22/16 06:34 08/12/16 06:53 Temp Pulse Resp BP Pulse Ox 97.2 F L 98 H 21 142/88 100 08/23/16 07:15 08/23/16 16:14 08/23/16 07:15 08/23/16 16:14 08/12/16 06:53 Temp Pulse Resp BP Pulse Ox 97.7 F 94 H 20 143/95 H 100 08/26/16 06:00 08/26/16 16:12 08/26/16 06:00 08/26/16 16:12 08/12/16 06:53 Temp Pulse Resp BP Pulse Ox 97.9 F 89 20 132/83 100 08/29/16 07:34 08/29/16 07:34 08/29/16 07:34 08/29/16 07:34 08/12/16 06:53 Temp Pulse Resp BP Pulse Ox 97.6 F 110 H 20 135/95 H 100 08/30/16 06:30 08/30/16 16:14 08/30/16 06:30 08/30/16 16:14 08/12/16 06:53 DSM 5 Symptoms Update: Patient is a 21-year-old single -[place] male with a history of paranoid schizophrenia, multiple psychiatric hospitalizations (though none noted at this facility) who presented to the emergency room on August 08, 2016 reporting increased paranoia. Patient was seen by overnight ride attendant who recommended patient be hospitalized for paranoia as he was notably thought-blocked, guarded and paranoid. Patient refused to sign in for a voluntary admission and a screening was called. During this time his laboratory results returned which indicated markedly elevated total creatine kinase of 6814. Patient was admitted medically for rhabdomyolysis. Psychiatry followed patient on the medical floor for one day before patient was medically cleared and transferred to the psychiatric unit. some positive changes pt is more verbal, pt has good hygiene, affect is more reactive, but pt still psychotic, delusional, thought blocking, poverty of thoughts and speech. pt was initiated on clozaril last week had tachycardia of 110, that is why clozaril was not titrated over the weekend, today Ps was in his 80, pt denied any feeling of heart palpitation and willing to increase clozaril further. over the weekend pt asked to go "downstairs to see my baby, I need to see some people, one particular girl whom I knew from before, nobody particular, she is a family member of my family, I found out about her from the source get", pt was psychotic, disorganized. pt denied side effects, AIMS 0, no EPS, no tremor, no cogwheel rigidity . pt is very sensitive to increase the dose of antipsychotics, either he has EPS from the conventional antipsychotic, or tachycardia from Clozaril. Diagnostic Results: Chronic Paranoid Schizophrenia Medication Change: No (pt has tachycardia) Medical Record Reviewed: Yes (notes, reports, labs, vitals) Mental Status Examination - Cognitive Function Orientation: Person, Place Attention: Poor (somewhat better) Concentration: Poor (somewhat better) Association: Loose Fund of Knowledge: Poor - Mood Mood: Other ("doing better") - Affect Affect: Constricted, Blunted, Flat - Speech Speech: Appropriate - Formal Thought Process Formal Thought Process: Hallucinations ("the voices tell me information"), Delusions, Paranoia (persists), Loosening of associations - Suicidal Ideation Suicidal Ideation: No - Homicidal Ideation Homicidal Ideation: No Goal/Treatment Plan - Goal/Treatment Plan Need for Continued Stay: Remain at risks for inpatient hospitalization, Severe depression anxiety, Discharge may exacerbated symptoms, Severe functional impairment Progress Toward Problem(s) and Goals/Treatment Plan: milieu, structure, supportive therapy Lindaypradha Rao d/c 08/29/16 Prolixin discontinued Clozaril was started 08/26/16, lab sumbitted to Clozaril [facility] 08/26/16, 09/02/16 Clozaril 50mg am and 50mg hs will monitor pulse ativan was increased to 1mg bid and 2mg at the nighttime for catatonia and anxiety Cogentin 1 mg amhs for possible EPS Social work evaluation Medical consult appreciated We'll monitor closely Estimated Date of D/C: 09/09/16 (we'll monitor closely)
[2016-09-03] MEDS: Ammonium Lactate 12% Cream (140 g) TOP SCH ×2 (09:05→21:51)
--- NOTE | 2016-09-03 13:39 | PCM.PYCHPN ---
Psychiatric Progress Note - Psychiatric Progress Note Patient seen today, length of contact: 30min Patient Chief Complaint: "I am just concerned about my family..." Problems Identified/Issues Discussed: Suicide/ homicide prevention, past psychiatric h/o, current psychiatric symptoms , medical problems, risk/benefits and alternatives of medications, medications compliance, coping strategies, substance abuse h/o, relapse prevention, importance of follow up with psychiatrist and therapist, discharge plan. Medical Problems: rhabdomyolisis improved Diagnostic Results: Lab Results 08/10/16 07:30: Fasting Glucose 90, Triglycerides 41, Cholesterol 106 L, LDL Cholesterol Direct 55, HDL Cholesterol 43, TSH 3rd Generation 0.86, RPR Nonreactive Vital Signs Temp Pulse Resp BP Pulse Ox 08/16/16 16:36 69 132/83 08/16/16 06:31 98.6 F 80 20 126/77 08/15/16 16:46 69 138/63 08/15/16 06:52 98.2 F 86 18 143/89 08/14/16 16:20 81 125/79 08/14/16 06:00 97.4 F L 69 18 120/84 08/13/16 16:44 73 147/86 08/13/16 06:38 98.2 F 83 19 138/82 08/12/16 14:00 61 123/80 08/12/16 06:53 97.8 F 61 16 99/63 L 100 08/11/16 14:00 79 136/90 08/11/16 06:00 97.9 F 60 16 114/75 08/10/16 16:22 69 120/85 08/10/16 06:00 97.9 F 57 L 16 116/69 08/09/16 21:06 20 Temp Pulse Resp BP Pulse Ox 97.1 F L 92 H 20 127/83 100 08/19/16 07:26 08/19/16 07:26 08/19/16 07:26 08/19/16 07:26 08/12/16 06:53 Temp Pulse Resp BP Pulse Ox 97.2 F L 80 20 117/61 100 08/21/16 07:27 08/21/16 07:27 08/21/16 07:27 08/21/16 07:27 08/12/16 06:53 Temp Pulse Resp BP Pulse Ox 97.7 F 92 H 20 142/92 H 100 08/22/16 06:34 08/22/16 06:34 08/22/16 06:34 08/22/16 06:34 08/12/16 06:53 Temp Pulse Resp BP Pulse Ox 97.2 F L 98 H 21 142/88 100 08/23/16 07:15 08/23/16 16:14 08/23/16 07:15 08/23/16 16:14 08/12/16 06:53 Temp Pulse Resp BP Pulse Ox 97.7 F 94 H 20 143/95 H 100 08/26/16 06:00 08/26/16 16:12 08/26/16 06:00 08/26/16 16:12 08/12/16 06:53 Temp Pulse Resp BP Pulse Ox 97.9 F 89 20 132/83 100 08/29/16 07:34 08/29/16 07:34 08/29/16 07:34 08/29/16 07:34 08/12/16 06:53 Temp Pulse Resp BP Pulse Ox 97.6 F 110 H 20 135/95 H 100 08/30/16 06:30 08/30/16 16:14 08/30/16 06:30 08/30/16 16:14 08/12/16 06:53 Temp Pulse Resp BP Pulse Ox 97.9 F 94 H 20 125/58 L 100 09/03/16 06:49 09/03/16 06:49 09/03/16 06:49 09/03/16 06:49 08/12/16 06:53 DSM 5 Symptoms Update: Patient is a 21-year-old single -[place] male with a history of paranoid schizophrenia, multiple psychiatric hospitalizations (though none noted at this facility) who presented to the emergency room on August 08, 2016 reporting increased paranoia. Patient was seen by overnight software publisher who recommended patient be hospitalized for paranoia as he was notably thought-blocked, guarded and paranoid. Patient refused to sign in for a voluntary admission and a screening was called. During this time his laboratory results returned which indicated markedly elevated total creatine kinase of 6814. Patient was admitted medically for rhabdomyolysis. Psychiatry followed patient on the medical floor for one day before patient was medically cleared and transferred to the psychiatric unit. some positive changes pt is more verbal, talkative, pt has good hygiene, affect is more reactive, but pt still psychotic, said that he is concerned about his family, pt said his grandmother is downstairs, but no evidence for that, pt still delusional, thought blocking, poverty of thoughts and speech. pt was initiated on clozaril last week had tachycardia of 110, that is why clozaril was not titrated over the weekend, yesterday Ps was in his 80, pt denied any feeling of heart palpitation and willing to increase clozaril further. pt denied side effects, AIMS 0, no EPS, no tremor, no cogwheel rigidity . pt is very sensitive to increase the dose of antipsychotics, either he has EPS from the conventional antipsychotic, or tachycardia from Clozaril. as per RN report pt takes long time to take meds, compliance will be ?, will add Prolixin for now. Diagnostic Results: Chronic Paranoid Schizophrenia Medication Change: Yes (clozaril increased, prolixin initiated) Medical Record Reviewed: Yes (notes, reports, labs, vitals) Consults ordered or reviewed: medical consult appreciated Mental Status Examination - Cognitive Function Orientation: Person, Place Attention: Poor (somewhat better) Concentration: Poor (somewhat better) Association: Loose Fund of Knowledge: Poor - Mood Mood: Other ("doing better") - Affect Affect: Constricted, Blunted, Flat - Speech Speech: Appropriate - Formal Thought Process Formal Thought Process: Hallucinations ("the voices tell me information"), Delusions, Paranoia (I am concerned about my faimily), Loosening of associations - Suicidal Ideation Suicidal Ideation: No - Homicidal Ideation Homicidal Ideation: No Goal/Treatment Plan - Goal/Treatment Plan Need for Continued Stay: Remain at risks for inpatient hospitalization, Severe depression anxiety, Discharge may exacerbated symptoms, Severe functional impairment Progress Toward Problem(s) and Goals/Treatment Plan: milieu, structure, supportive therapy Julienne Rao d/c 08/29/16 Prolixin will be resumed Clozaril was started 08/26/16, lab sumbitted to Clozaril [facility] 08/26/16, 09/02/16 Clozaril 50mg am and 75mg hs will monitor pulse ativan was increased to 1mg bid and 2mg at the nighttime for catatonia and anxiety Cogentin 1 mg amhs for possible EPS Social work evaluation Medical consult appreciated We'll monitor closely it seems pt needs to be on two antipsychotics Estimated Date of D/C: 09/09/16 (we'll monitor closely)
--- NOTE | 2016-09-03 18:58 | CON ---
DATE: 09/03/2016 NEUROLOGY CONSULTATION CHIEF COMPLAINT: Evaluation for psychosis from a neurological standpoint. HISTORY OF PRESENT ILLNESS: This is a 21-year-old man with a past medical history of paranoi d schizophrenia who presented to the hospital because of paranoia and was normally taking Zyprexa for his paranoia, but had not taken it for 3-4 days. He says he had auditory hallucinations and recogni zing multiple voices of his family members telling him to get help. He was not eating or drinking mu ch and had elevated creatinine, which has improved with IV hydration, currently on psychiatric unit u ndergoing psychiatric care, was consulted for his underlying paranoia and psychosis. Currently, he i s becoming more talkative. He has good hygiene. He has actually been more reactive, but he is still mildly psychotic. He is occasionally delusional and has poverty of thoughts and speech. He is on C lozaril, which is being managed, and his blood counts are being managed due to effects of Clozaril. At this time, he is walking around without any difficulty. His insight is somewhat fair. No further hallucinations today. No headaches. PAST MEDICAL HISTORY: Paranoid schizophrenia. REVIEW OF SYSTEMS: A 14-point review of systems is negative except for the HPI. SOCIAL HISTORY: No illicit drug use, smoking, or ETOH abuse. FAMILY HISTORY: Noncontributory. ALLERGIES: No known drug allergies. CURRENT MEDICATIONS: Reviewed via nurse's reconciliation sheet. PHYSICAL EXAMINATION: VITAL SIGNS: Temperature of 97.9, pulse rate of 94, blood pressure 125/58, respiratory rate 20. GENERAL: The patient is sitting up in bed in no acute distress. HEENT: Atraumatic, normocephalic. PERRLA. Extraocular muscles intact. NECK: Supple, no JVD, no adenopathy noted. LUNGS: Clear to auscultation. No adventitious sounds. HEART: S1, S2, normal rate and rhythm. No murmurs, rubs, or gallops. ABDOMEN: Soft, nontender, nondistended. Bowel sounds are present. EXTREMITIES: No clubbing, no cyanosis. Peripheral pulses 2+ felt bilaterally. NEUROLOGIC: The patient is alert, oriented to person, place, month and year. Speech is fluent, with out any errors. Attention is poor. Concentration is poor. Has loose associations. Fund of knowled ge is poor. His affect is blunted and flat. Formal thought process, he occasionally has loose assoc iations. Cranial nerves II through XII are intact. MOTOR: Slight increased tone throughout. Moves all extremities equally. Toes downgoing bilaterally . SENSORY: Light touch, pinprick, proprioception, and vibrations. DTRs are 2+ throughout. COORDINATION: [id number] intact. GAIT: Normal. Romberg negative. LABORATORY DATA: No new labs. His past labs are unremarkable. RPR nonreactive. ASSESSMENT AND PLAN: This is a 21-year-old man with paranoid schizophrenia who comes in for psychosi s and his psychosis is more of a psychiatric with underlying severe depression and anxiety. an y neurological impairment. He does have some episodes of catatonia, which is possible of his underly ing anxiety at times. I feel at this time, in addition to Clozaril, we could consider high dose candice pentin around 400 mg p.o. at bedtime and coenzyme Q10 400 mg p.o. b.i.d. in addition as an outpatient , could consider a trial of Nuedexta 1 tab p.o. b.i.d., which will help him with psychosis overall an d agitation. At this time, continue with current present psychiatric management. Please reconsult i f necessary. Migue Cope MD cc: [id number] TT: 09/03/2016 18:57:31 Confirmation # [id number] Dictation # [id number] mn
[2016-09-04] MEDS: Ammonium Lactate 12% Cream (140 g) TOP SCH ×2 (09:09→17:30)
--- NOTE | 2016-09-04 13:09 | CT ---
PROCEDURE: CT HEAD WITHOUT CONTRAST. HISTORY: PSYCHOSIS. COMPARISON: None available. TECHNIQUE: Axial computed tomography images were obtained through the head/brain without intravenous contrast. Radiation dose: Total exam DLP = 688 mGy-cm. This CT exam was performed using one or more of the following dose reduction techniques: Automated exposure control, adjustment of the mA and/or kV according to patient size, and/or use of iterative reconstruction technique. FINDINGS: HEMORRHAGE: No intracranial hemorrhage. BRAIN: No mass effect or edema. No atrophy or chronic microvascular ischemic changes. VENTRICLES: Unremarkable. No hydrocephalus. CALVARIUM: Unremarkable. PARANASAL SINUSES: Unremarkable as visualized. No significant inflammatory changes. MASTOID AIR CELLS: Unremarkable as visualized. No inflammatory changes. OTHER FINDINGS: None. IMPRESSION: Normal CT of the Head.
[2016-09-05] MEDS: Ammonium Lactate 12% Cream (140 g) TOP SCH ×2 (10:34→18:17)
--- NOTE | 2016-09-05 16:46 | PCM.PYCHPN ---
Psychiatric Progress Note - Psychiatric Progress Note Patient seen today, length of contact: 30min Patient Chief Complaint: "I am just fine" Problems Identified/Issues Discussed: Suicide/ homicide prevention, past psychiatric h/o, current psychiatric symptoms , medical problems, risk/benefits and alternatives of medications, medications compliance, coping strategies, substance abuse h/o, relapse prevention, importance of follow up with psychiatrist and therapist, discharge plan. Medical Problems: rhabdomyolisis improved Diagnostic Results: Lab Results 08/10/16 07:30: Fasting Glucose 90, Triglycerides 41, Cholesterol 106 L, LDL Cholesterol Direct 55, HDL Cholesterol 43, TSH 3rd Generation 0.86, RPR Nonreactive Vital Signs Temp Pulse Resp BP Pulse Ox 08/16/16 16:36 69 132/83 08/16/16 06:31 98.6 F 80 20 126/77 08/15/16 16:46 69 138/63 08/15/16 06:52 98.2 F 86 18 143/89 08/14/16 16:20 81 125/79 08/14/16 06:00 97.4 F L 69 18 120/84 08/13/16 16:44 73 147/86 08/13/16 06:38 98.2 F 83 19 138/82 08/12/16 14:00 61 123/80 08/12/16 06:53 97.8 F 61 16 99/63 L 100 08/11/16 14:00 79 136/90 08/11/16 06:00 97.9 F 60 16 114/75 08/10/16 16:22 69 120/85 08/10/16 06:00 97.9 F 57 L 16 116/69 08/09/16 21:06 20 Temp Pulse Resp BP Pulse Ox 97.1 F L 92 H 20 127/83 100 08/19/16 07:26 08/19/16 07:26 08/19/16 07:26 08/19/16 07:26 08/12/16 06:53 Temp Pulse Resp BP Pulse Ox 97.2 F L 80 20 117/61 100 08/21/16 07:27 08/21/16 07:27 08/21/16 07:27 08/21/16 07:27 08/12/16 06:53 Temp Pulse Resp BP Pulse Ox 97.7 F 92 H 20 142/92 H 100 08/22/16 06:34 08/22/16 06:34 08/22/16 06:34 08/22/16 06:34 08/12/16 06:53 Temp Pulse Resp BP Pulse Ox 97.2 F L 98 H 21 142/88 100 08/23/16 07:15 08/23/16 16:14 08/23/16 07:15 08/23/16 16:14 08/12/16 06:53 Temp Pulse Resp BP Pulse Ox 97.7 F 94 H 20 143/95 H 100 08/26/16 06:00 08/26/16 16:12 08/26/16 06:00 08/26/16 16:12 08/12/16 06:53 Temp Pulse Resp BP Pulse Ox 97.9 F 89 20 132/83 100 08/29/16 07:34 08/29/16 07:34 08/29/16 07:34 08/29/16 07:34 08/12/16 06:53 Temp Pulse Resp BP Pulse Ox 97.6 F 110 H 20 135/95 H 100 08/30/16 06:30 08/30/16 16:14 08/30/16 06:30 08/30/16 16:14 08/12/16 06:53 Temp Pulse Resp BP Pulse Ox 97.9 F 94 H 20 125/58 L 100 09/03/16 06:49 09/03/16 06:49 09/03/16 06:49 09/03/16 06:49 08/12/16 06:53 Temp Pulse Resp BP Pulse Ox 97.5 F L 103 H 20 134/65 100 09/05/16 07:14 09/05/16 07:14 09/05/16 07:14 09/05/16 07:14 08/12/16 06:53 DSM 5 Symptoms Update: Patient is a 21-year-old single -[place] male with a history of paranoid schizophrenia, multiple psychiatric hospitalizations (though none noted at this facility) who presented to the emergency room on August 08, 2016 reporting increased paranoia. Patient was seen by overnight tire finisher who recommended patient be hospitalized for paranoia as he was notably thought-blocked, guarded and paranoid. Patient refused to sign in for a voluntary admission and a screening was called. During this time his laboratory results returned which indicated markedly elevated total creatine kinase of 6814. Patient was admitted medically for rhabdomyolysis. Psychiatry followed patient on the medical floor for one day before patient was medically cleared and transferred to the psychiatric unit. some positive changes pt is more verbal, talkative, pt has good hygiene, affect is more reactive, but pt still psychotic, said that he is concerned about his family, pt still delusional, thought blocking, poverty of thoughts and speech. clozaril is on titration schedule. pt denied side effects, AIMS 0, no EPS, no tremor, no cogwheel rigidity . pt is very sensitive to increase the dose of antipsychotics, either he has EPS from the conventional antipsychotic, or tachycardia from Clozaril. as per RN report pt takes long time to take meds, compliance will be ?, pt is on Prolixin now. pt mother came to visit pt, as per her impression, no improvement, pt was argumentative during visit. Diagnostic Results: Chronic Paranoid Schizophrenia Medication Change: Yes (clozaril increased, prolixin) Medical Record Reviewed: Yes (notes, reports, labs, vitals) Consults ordered or reviewed: medical consult appreciated Mental Status Examination - Cognitive Function Orientation: Person, Place Attention: Poor (somewhat better) Concentration: Poor (somewhat better) Association: Loose Fund of Knowledge: Poor - Mood Mood: Other ("doing better") - Affect Affect: Constricted, Blunted, Flat - Speech Speech: Appropriate - Formal Thought Process Formal Thought Process: Hallucinations ("the voices tell me information"), Delusions, Paranoia (I am concerned about my faimily), Loosening of associations - Suicidal Ideation Suicidal Ideation: No - Homicidal Ideation Homicidal Ideation: No Goal/Treatment Plan - Goal/Treatment Plan Need for Continued Stay: Remain at risks for inpatient hospitalization, Severe depression anxiety, Discharge may exacerbated symptoms, Severe functional impairment Progress Toward Problem(s) and Goals/Treatment Plan: milieu, structure, supportive therapy Prolixin 5mg bid for psychosis Clozaril was started 08/26/16, lab sumbitted to Clozaril [facility] 08/26/16, 09/02/16 Clozaril 100mg am and 100mg hs will monitor pulse ativan 1mg bid and 2mg at the nighttime for catatonia and anxiety Cogentin 1 mg amhs for possible EPS Social work evaluation Medical consult appreciated We'll monitor closely it seems pt needs to be on two antipsychotics Estimated Date of D/C: 09/09/16 (we'll monitor closely)
--- NOTE | 2016-09-05 16:48 | PCM.PYCHPN ---
Psychiatric Progress Note - Psychiatric Progress Note Patient seen today, length of contact: 30min Patient Chief Complaint: "I am just fine" Problems Identified/Issues Discussed: Suicide/ homicide prevention, past psychiatric h/o, current psychiatric symptoms , medical problems, risk/benefits and alternatives of medications, medications compliance, coping strategies, substance abuse h/o, relapse prevention, importance of follow up with psychiatrist and therapist, discharge plan. Medical Problems: rhabdomyolisis improved Diagnostic Results: Lab Results 08/10/16 07:30: Fasting Glucose 90, Triglycerides 41, Cholesterol 106 L, LDL Cholesterol Direct 55, HDL Cholesterol 43, TSH 3rd Generation 0.86, RPR Nonreactive Vital Signs Temp Pulse Resp BP Pulse Ox 08/16/16 16:36 69 132/83 08/16/16 06:31 98.6 F 80 20 126/77 08/15/16 16:46 69 138/63 08/15/16 06:52 98.2 F 86 18 143/89 08/14/16 16:20 81 125/79 08/14/16 06:00 97.4 F L 69 18 120/84 08/13/16 16:44 73 147/86 08/13/16 06:38 98.2 F 83 19 138/82 08/12/16 14:00 61 123/80 08/12/16 06:53 97.8 F 61 16 99/63 L 100 08/11/16 14:00 79 136/90 08/11/16 06:00 97.9 F 60 16 114/75 08/10/16 16:22 69 120/85 08/10/16 06:00 97.9 F 57 L 16 116/69 08/09/16 21:06 20 Temp Pulse Resp BP Pulse Ox 97.1 F L 92 H 20 127/83 100 08/19/16 07:26 08/19/16 07:26 08/19/16 07:26 08/19/16 07:26 08/12/16 06:53 Temp Pulse Resp BP Pulse Ox 97.2 F L 80 20 117/61 100 08/21/16 07:27 08/21/16 07:27 08/21/16 07:27 08/21/16 07:27 08/12/16 06:53 Temp Pulse Resp BP Pulse Ox 97.7 F 92 H 20 142/92 H 100 08/22/16 06:34 08/22/16 06:34 08/22/16 06:34 08/22/16 06:34 08/12/16 06:53 Temp Pulse Resp BP Pulse Ox 97.2 F L 98 H 21 142/88 100 08/23/16 07:15 08/23/16 16:14 08/23/16 07:15 08/23/16 16:14 08/12/16 06:53 Temp Pulse Resp BP Pulse Ox 97.7 F 94 H 20 143/95 H 100 08/26/16 06:00 08/26/16 16:12 08/26/16 06:00 08/26/16 16:12 08/12/16 06:53 Temp Pulse Resp BP Pulse Ox 97.9 F 89 20 132/83 100 08/29/16 07:34 08/29/16 07:34 08/29/16 07:34 08/29/16 07:34 08/12/16 06:53 Temp Pulse Resp BP Pulse Ox 97.6 F 110 H 20 135/95 H 100 08/30/16 06:30 08/30/16 16:14 08/30/16 06:30 08/30/16 16:14 08/12/16 06:53 Temp Pulse Resp BP Pulse Ox 97.9 F 94 H 20 125/58 L 100 09/03/16 06:49 09/03/16 06:49 09/03/16 06:49 09/03/16 06:49 08/12/16 06:53 Temp Pulse Resp BP Pulse Ox 97.5 F L 103 H 20 134/65 100 09/05/16 07:14 09/05/16 07:14 09/05/16 07:14 09/05/16 07:14 08/12/16 06:53 DSM 5 Symptoms Update: Patient is a 21-year-old single -German male with a history of paranoid schizophrenia, multiple psychiatric hospitalizations (though none noted at this facility) who presented to the emergency room on August 08, 2016 reporting increased paranoia. Patient was seen by overnight web retailer who recommended patient be hospitalized for paranoia as he was notably thought-blocked, guarded and paranoid. Patient refused to sign in for a voluntary admission and a screening was called. During this time his laboratory results returned which indicated markedly elevated total creatine kinase of 6814. Patient was admitted medically for rhabdomyolysis. Psychiatry followed patient on the medical floor for one day before patient was medically cleared and transferred to the psychiatric unit. some positive changes pt is more verbal, talkative, pt has good hygiene, affect is more reactive, but pt still psychotic, said that he is concerned about his family, pt said his grandmother is downstairs, but no evidence for that, pt still delusional, thought blocking, poverty of thoughts and speech. pt was initiated on clozaril last week had tachycardia of 110, that is why clozaril was not titrated over the weekend. pt denied side effects, AIMS 0, no EPS, no tremor, no cogwheel rigidity . pt is very sensitive to increase the dose of antipsychotics, either he has EPS from the conventional antipsychotic, or tachycardia from Clozaril. as per RN report pt takes long time to take meds, compliance will be ?, pt needs to be on two antipsychotics for now. Diagnostic Results: Chronic Paranoid Schizophrenia Medication Change: Yes (clozaril increased, prolixin) Medical Record Reviewed: Yes (notes, reports, labs, vitals) Consults ordered or reviewed: medical consult appreciated Mental Status Examination - Cognitive Function Orientation: Person, Place Attention: Poor (somewhat better) Concentration: Poor (somewhat better) Association: Loose Fund of Knowledge: Poor - Mood Mood: Other ("doing better") - Affect Affect: Constricted, Blunted, Flat - Speech Speech: Appropriate - Formal Thought Process Formal Thought Process: Hallucinations ("the voices tell me information"), Delusions, Paranoia (I am concerned about my faimily), Loosening of associations - Suicidal Ideation Suicidal Ideation: No - Homicidal Ideation Homicidal Ideation: No Goal/Treatment Plan - Goal/Treatment Plan Need for Continued Stay: Remain at risks for inpatient hospitalization, Severe depression anxiety, Discharge may exacerbated symptoms, Severe functional impairment Progress Toward Problem(s) and Goals/Treatment Plan: milieu, structure, supportive therapy Prolixin 5mg bid for psychosis Clozaril was started 08/26/16, lab sumbitted to Clozaril [facility]S 08/26/16, 09/02/16 Clozaril 75mg am and 100mg hs will monitor pulse ativan 1mg bid and 2mg at the nighttime for catatonia and anxiety Cogentin 1 mg amhs for possible EPS Social work evaluation Medical consult appreciated We'll monitor closely it seems pt needs to be on two antipsychotics Estimated Date of D/C: 09/09/16 (we'll monitor closely)
[2016-09-05] MEDS: CO Q PO SCH (21:47)
[2016-09-06] MEDS: Ammonium Lactate 12% Cream (140 g) TOP SCH ×2 (09:29→15:56)
[2016-09-06] MEDS: CO Q PO SCH ×2 (09:29→21:31)
--- NOTE | 2016-09-06 17:14 | PCM.PYCHPN ---
Psychiatric Progress Note - Psychiatric Progress Note Patient seen today, length of contact: 30min Patient Chief Complaint: "I am just fine" Problems Identified/Issues Discussed: Suicide/ homicide prevention, past psychiatric h/o, current psychiatric symptoms , medical problems, risk/benefits and alternatives of medications, medications compliance, coping strategies, substance abuse h/o, relapse prevention, importance of follow up with psychiatrist and therapist, discharge plan. Medical Problems: rhabdomyolisis improved Diagnostic Results: Lab Results 08/10/16 07:30: Fasting Glucose 90, Triglycerides 41, Cholesterol 106 L, LDL Cholesterol Direct 55, HDL Cholesterol 43, TSH 3rd Generation 0.86, RPR Nonreactive Vital Signs Temp Pulse Resp BP Pulse Ox 08/16/16 16:36 69 132/83 08/16/16 06:31 98.6 F 80 20 126/77 08/15/16 16:46 69 138/63 08/15/16 06:52 98.2 F 86 18 143/89 08/14/16 16:20 81 125/79 08/14/16 06:00 97.4 F L 69 18 120/84 08/13/16 16:44 73 147/86 08/13/16 06:38 98.2 F 83 19 138/82 08/12/16 14:00 61 123/80 08/12/16 06:53 97.8 F 61 16 99/63 L 100 08/11/16 14:00 79 136/90 08/11/16 06:00 97.9 F 60 16 114/75 08/10/16 16:22 69 120/85 08/10/16 06:00 97.9 F 57 L 16 116/69 08/09/16 21:06 20 Temp Pulse Resp BP Pulse Ox 97.1 F L 92 H 20 127/83 100 08/19/16 07:26 08/19/16 07:26 08/19/16 07:26 08/19/16 07:26 08/12/16 06:53 Temp Pulse Resp BP Pulse Ox 97.2 F L 80 20 117/61 100 08/21/16 07:27 08/21/16 07:27 08/21/16 07:27 08/21/16 07:27 08/12/16 06:53 Temp Pulse Resp BP Pulse Ox 97.7 F 92 H 20 142/92 H 100 08/22/16 06:34 08/22/16 06:34 08/22/16 06:34 08/22/16 06:34 08/12/16 06:53 Temp Pulse Resp BP Pulse Ox 97.2 F L 98 H 21 142/88 100 08/23/16 07:15 08/23/16 16:14 08/23/16 07:15 08/23/16 16:14 08/12/16 06:53 Temp Pulse Resp BP Pulse Ox 97.7 F 94 H 20 143/95 H 100 08/26/16 06:00 08/26/16 16:12 08/26/16 06:00 08/26/16 16:12 08/12/16 06:53 Temp Pulse Resp BP Pulse Ox 97.9 F 89 20 132/83 100 08/29/16 07:34 08/29/16 07:34 08/29/16 07:34 08/29/16 07:34 08/12/16 06:53 Temp Pulse Resp BP Pulse Ox 97.6 F 110 H 20 135/95 H 100 08/30/16 06:30 08/30/16 16:14 08/30/16 06:30 08/30/16 16:14 08/12/16 06:53 Temp Pulse Resp BP Pulse Ox 97.9 F 94 H 20 125/58 L 100 09/03/16 06:49 09/03/16 06:49 09/03/16 06:49 09/03/16 06:49 08/12/16 06:53 Temp Pulse Resp BP Pulse Ox 97.5 F L 103 H 20 134/65 100 09/05/16 07:14 09/05/16 07:14 09/05/16 07:14 09/05/16 07:14 08/12/16 06:53 DSM 5 Symptoms Update: Patient is a 21-year-old single -[place] male with a history of paranoid schizophrenia, multiple psychiatric hospitalizations (though none noted at this facility) who presented to the emergency room on August 08, 2016 reporting increased paranoia. Patient was seen by overnight rug frame mounter who recommended patient be hospitalized for paranoia as he was notably thought-blocked, guarded and paranoid. Patient refused to sign in for a voluntary admission and a screening was called. During this time his laboratory results returned which indicated markedly elevated total creatine kinase of 6814. Patient was admitted medically for rhabdomyolysis. Psychiatry followed patient on the medical floor for one day before patient was medically cleared and transferred to the psychiatric unit. some positive changes pt is more verbal, talkative, affect is more reactive, at the same time pt did not showered for the past two days, pt has strong body odor , still psychotic, some improvement with thought blocking, poverty of thoughts and speech. clozaril is on titration schedule. pt denied side effects, AIMS 0, no EPS, no tremor, no cogwheel rigidity . pt will be off prolixin for now, seems improving on clozaril. as per mother, there is no improvement Diagnostic Results: Chronic Paranoid Schizophrenia Medication Change: Yes (clozaril increased, prolixin) Medical Record Reviewed: Yes (notes, reports, labs, vitals) Consults ordered or reviewed: medical consult appreciated Mental Status Examination - Cognitive Function Orientation: Person, Place Attention: Poor (somewhat better) Concentration: Poor (somewhat better) Association: Loose Fund of Knowledge: Poor - Mood Mood: Other ("doing better") - Affect Affect: Constricted, Blunted, Flat - Speech Speech: Appropriate - Formal Thought Process Formal Thought Process: Hallucinations ("the voices tell me information"), Delusions, Paranoia (I am concerned about my faimily), Loosening of associations - Suicidal Ideation Suicidal Ideation: No - Homicidal Ideation Homicidal Ideation: No Goal/Treatment Plan - Goal/Treatment Plan Need for Continued Stay: Remain at risks for inpatient hospitalization, Severe depression anxiety, Discharge may exacerbated symptoms, Severe functional impairment Progress Toward Problem(s) and Goals/Treatment Plan: milieu, structure, supportive therapy Prolixin will be d/c Clozaril was started 08/26/16, lab sumbitted to Clozaril [facility] 08/26/16, 09/02/16 Clozaril 100mg am and 100mg hs for psychosis will monitor pulse ativan 1mg bid and 2mg at the nighttime for catatonia and anxiety Cogentin 1 mg amhs for possible EPS Social work evaluation Medical consult appreciated We'll monitor closely it seems pt needs to be on two antipsychotics Estimated Date of D/C: 09/10/16 (we'll monitor closely)
--- NOTE | 2016-09-07 09:09 | PCM.PYCHPN ---
Psychiatric Progress Note - Psychiatric Progress Note Patient seen today, length of contact: 25 min Patient Chief Complaint: "doing better" Problems Identified/Issues Discussed: I reviewed recent notes and met with patient at bedside. Patient remains superficially oriented to month, year and circumstances. Grooming is fair. He continues to appear disengaged with my questioning and affect remains odd, blunt and withdrawn. Thought blocking persists but definitely improved since admission. His speech is also notably more spontaneous though still underproductive. He can respond to questioning with more elaboration and thought process is showing some improvement in clarity and focus while on this unit. However his thoughts are still a little scattered and paranoia remains. Overall comprehension and appreciation of current diagnosis remain poor but demonstrates some improvement since last week Patient flatly continues to report that he is "doing better". He denies any side effects, current discomfort or pain. Patient denies any hallucinations at this time and not observed to be responding to internal stimuli during my interview today. Nonetheless he still keeps to himself and appears preoccupied. At times argumentative and accusatory with staff. There were no major behavioral issues overnight. Diagnostic Results: Chronic Paranoid Schizophrenia Medication Change: No ( ) Medical Record Reviewed: Yes (notes, reports, labs, vitals) Mental Status Examination - Cognitive Function Orientation: Person, Place Attention: Poor (somewhat better) Concentration: Poor (somewhat better) Association: Loose Fund of Knowledge: Poor - Mood Mood: Other ("doing better") - Affect Affect: Constricted, Blunted, Flat - Speech Speech: Appropriate - Formal Thought Process Formal Thought Process: Hallucinations (denies today), Delusions, Paranoia (I am concerned about my faimily), Loosening of associations - Suicidal Ideation Suicidal Ideation: No - Homicidal Ideation Homicidal Ideation: No Goal/Treatment Plan - Goal/Treatment Plan Need for Continued Stay: Remain at risks for inpatient hospitalization, Severe depression anxiety, Discharge may exacerbated symptoms, Severe functional impairment Progress Toward Problem(s) and Goals/Treatment Plan: * Group, milieu and supportive tx * Clozaril (titrating up schedule), will hold at 100/100 due to elevated pulse rates * No new weekend labs * Vitals reviewed and noted below: Selected Entries 09/06/16 09/06/16 09:39 16:29 Temperature 98.1 F Pulse Rate 94 H 114 H Respiratory 20 Rate Blood Pressure 131/75 139/86 Estimated Date of D/C: 09/10/16 (we'll monitor closely)
[2016-09-07] MEDS: Ammonium Lactate 12% Cream (140 g) TOP SCH ×2 (09:10→15:16)
[2016-09-07] MEDS: CO Q PO SCH (09:11)
--- NOTE | 2016-09-08 08:34 | PCM.PYCHPN ---
Psychiatric Progress Note - Psychiatric Progress Note Patient seen today, length of contact: 25 min Patient Chief Complaint: "doing better" Problems Identified/Issues Discussed: I reviewed recent notes and met with patient at bedside. Patient remains superficially oriented to month, year and circumstances. Grooming is fair. He continues to appear disengaged with my questioning and affect remains odd, blunt and withdrawn. Thought blocking persists but definitely improved since admission. He appears brighter today. His speech is notably more spontaneous though still underproductive. He can respond to questioning with more elaboration and thought process is showing some improvement in clarity and focus while on this unit. However his thoughts are still scattered and paranoia remains. Patient flatly continues to report that he is "doing better". He denies any side effects, current discomfort or pain. Patient denies any hallucinations at this time and was not observed to be responding to internal stimuli during my interviews this weekend. Nonetheless he still keeps to himself and appears preoccupied. At times argumentative and accusatory with staff. Needs much encouragement to take his medications. Patient seemed to respond well to my education about the switch clozaril and its benefits. There were no major behavioral issues over the weekend. Diagnostic Results: Chronic Paranoid Schizophrenia Medication Change: No ( ) Medical Record Reviewed: Yes (notes, reports, labs, vitals) Mental Status Examination - Cognitive Function Orientation: Person, Place Attention: Poor (somewhat better) Concentration: Poor (somewhat better) Association: Loose Fund of Knowledge: Poor - Mood Mood: Other ("doing better") - Affect Affect: Constricted, Blunted, Flat - Speech Speech: Appropriate - Formal Thought Process Formal Thought Process: Hallucinations (denied all weekend), Delusions, Paranoia (I am concerned about my faimily), Loosening of associations - Suicidal Ideation Suicidal Ideation: No - Homicidal Ideation Homicidal Ideation: No Goal/Treatment Plan - Goal/Treatment Plan Need for Continued Stay: Remain at risks for inpatient hospitalization, Severe depression anxiety, Discharge may exacerbated symptoms, Severe functional impairment Progress Toward Problem(s) and Goals/Treatment Plan: * Group, milieu and supportive tx * Clozaril (titrating up schedule), will hold at 100/100 due to elevated pulse rates * No new weekend labs * Vitals reviewed and noted below: Selected Entries 09/07/16 09/07/16 09/08/16 07:39 16:44 07:04 Temperature 97.0 F L 98.2 F Pulse Rate 79 94 H 105 H Respiratory 20 20 Rate Blood Pressure 134/88 135/88 135/82 Estimated Date of D/C: 09/10/16 (we'll monitor closely)
[2016-09-08] MEDS: Ammonium Lactate 12% Cream (140 g) TOP SCH ×2 (09:36→18:20)
[2016-09-08] MEDS: CO Q PO SCH (09:37)
[2016-09-09 07:45] LABS: ADD MANUAL DIFF? NO
[2016-09-09 07:49] LABS: BASO # 0.02 K/mm3 (0.0-2.0); BASO % 0.2 % (0.0-3.0); EOS # 0.2 (0.0-0.7); EOS % 2.3 % (1.5-5.0); GRAN # 5.82 (1.4-6.5); GRAN % 70.8 % (50.0-68.0); HEMATOCRIT 40.9 % (42.0-52.0); LYMPH # 1.2 (1.2-3.4); LYMPH % 14.4 % (22.0-35.0); MEAN CELL VOLUME 90.7 fL (80.0-105.0); MEAN CORPUSCULAR HGB CONC 34.2 g/dl (31.0-37.0); MEAN PLATELET VOLUME 10.7 fl (7.0-11.0); MONO % 12.3 % (1.0-6.0); PLATELET COUNT 167 10^3/uL (120.0-450.0); RED CELL DISTRIBUTION WIDTH 13.2 % (11.5-14.5); WHITE BLOOD COUNT 8.2 10^3/ul (4.5-11.0)
[2016-09-09] MEDS: Ammonium Lactate 12% Cream (140 g) TOP SCH (10:00)
[2016-09-09] MEDS: CO Q PO SCH ×2 (10:00→21:50)
--- NOTE | 2016-09-09 17:22 | PCM.PYCHPN ---
Psychiatric Progress Note - Psychiatric Progress Note Patient seen today, length of contact: 30min Patient Chief Complaint: "I still have my concerns about my family and friends, everybody seems to be ..." Problems Identified/Issues Discussed: Suicide/ homicide prevention, past psychiatric h/o, current psychiatric symptoms , medical problems, risk/benefits and alternatives of medications, medications compliance, coping strategies, substance abuse h/o, relapse prevention, importance of follow up with psychiatrist and therapist, discharge plan. Medical Problems: rhabdomyolisis improved Diagnostic Results: Lab Results 08/10/16 07:30: Fasting Glucose 90, Triglycerides 41, Cholesterol 106 L, LDL Cholesterol Direct 55, HDL Cholesterol 43, TSH 3rd Generation 0.86, RPR Nonreactive Vital Signs Temp Pulse Resp BP Pulse Ox 08/16/16 16:36 69 132/83 08/16/16 06:31 98.6 F 80 20 126/77 08/15/16 16:46 69 138/63 08/15/16 06:52 98.2 F 86 18 143/89 08/14/16 16:20 81 125/79 08/14/16 06:00 97.4 F L 69 18 120/84 08/13/16 16:44 73 147/86 08/13/16 06:38 98.2 F 83 19 138/82 08/12/16 14:00 61 123/80 08/12/16 06:53 97.8 F 61 16 99/63 L 100 08/11/16 14:00 79 136/90 08/11/16 06:00 97.9 F 60 16 114/75 08/10/16 16:22 69 120/85 08/10/16 06:00 97.9 F 57 L 16 116/69 08/09/16 21:06 20 Temp Pulse Resp BP Pulse Ox 97.1 F L 92 H 20 127/83 100 08/19/16 07:26 08/19/16 07:26 08/19/16 07:26 08/19/16 07:26 08/12/16 06:53 Temp Pulse Resp BP Pulse Ox 97.2 F L 80 20 117/61 100 08/21/16 07:27 08/21/16 07:27 08/21/16 07:27 08/21/16 07:27 08/12/16 06:53 Temp Pulse Resp BP Pulse Ox 97.7 F 92 H 20 142/92 H 100 08/22/16 06:34 08/22/16 06:34 08/22/16 06:34 08/22/16 06:34 08/12/16 06:53 Temp Pulse Resp BP Pulse Ox 97.2 F L 98 H 21 142/88 100 08/23/16 07:15 08/23/16 16:14 08/23/16 07:15 08/23/16 16:14 08/12/16 06:53 Temp Pulse Resp BP Pulse Ox 97.7 F 94 H 20 143/95 H 100 08/26/16 06:00 08/26/16 16:12 08/26/16 06:00 08/26/16 16:12 08/12/16 06:53 Temp Pulse Resp BP Pulse Ox 97.9 F 89 20 132/83 100 08/29/16 07:34 08/29/16 07:34 08/29/16 07:34 08/29/16 07:34 08/12/16 06:53 Temp Pulse Resp BP Pulse Ox 97.6 F 110 H 20 135/95 H 100 08/30/16 06:30 08/30/16 16:14 08/30/16 06:30 08/30/16 16:14 08/12/16 06:53 Temp Pulse Resp BP Pulse Ox 97.9 F 94 H 20 125/58 L 100 09/03/16 06:49 09/03/16 06:49 09/03/16 06:49 09/03/16 06:49 08/12/16 06:53 Temp Pulse Resp BP Pulse Ox 97.5 F L 103 H 20 134/65 100 09/05/16 07:14 09/05/16 07:14 09/05/16 07:14 09/05/16 07:14 08/12/16 06:53 Temp Pulse Resp BP Pulse Ox 97.8 F 113 H 20 133/65 100 09/09/16 06:46 09/09/16 15:53 09/09/16 06:46 09/09/16 15:53 08/12/16 06:53 DSM 5 Symptoms Update: Patient is a 21-year-old single -[place] male with a history of paranoid schizophrenia, multiple psychiatric hospitalizations (though none noted at this facility) who presented to the emergency room on August 08, 2016 reporting increased paranoia. Patient was seen by overnight crisis clinician who recommended patient be hospitalized for paranoia as he was notably thought-blocked, guarded and paranoid. Patient refused to sign in for a voluntary admission and a screening was called. During this time his laboratory results returned which indicated markedly elevated total creatine kinase of 6814. Patient was admitted medically for rhabdomyolysis. Psychiatry followed patient on the medical floor for one day before patient was medically cleared and transferred to the psychiatric unit. some positive changes pt is more verbal, talkative, affect is more reactive, at the same time pt was paranoid and argumentative with staff, was refusing to take medications, was convinced that staff was giving him not correct medications and not correct doses. clozaril is on titration schedule. pt denied side effects, AIMS 0, no EPS, no tremor, no cogwheel rigidity . pt will be off prolixin for now, seems improving on clozaril. as per mother, there is no improvement Diagnostic Results: Chronic Paranoid Schizophrenia Medication Change: Yes (clozaril increased) Medical Record Reviewed: Yes (notes, reports, labs, vitals) Consults ordered or reviewed: medical consult appreciated Mental Status Examination - Cognitive Function Orientation: Person, Place Attention: Poor (somewhat better) Concentration: Poor (somewhat better) Association: Loose Fund of Knowledge: Poor - Mood Mood: Other ("doing better") - Affect Affect: Constricted, Blunted, Flat - Speech Speech: Appropriate - Formal Thought Process Formal Thought Process: Hallucinations (denied all weekend), Delusions (pt convinced that staff is giving him wrong medicaitons and wrong doses), Paranoia (I am concerned about my faimily), Loosening of associations - Suicidal Ideation Suicidal Ideation: No - Homicidal Ideation Homicidal Ideation: No Goal/Treatment Plan - Goal/Treatment Plan Need for Continued Stay: Remain at risks for inpatient hospitalization, Severe depression anxiety, Discharge may exacerbated symptoms, Severe functional impairment Progress Toward Problem(s) and Goals/Treatment Plan: milieu, structure, supportive therapy Prolixin will be d/c Clozaril was started 08/26/16, lab sumbitted to Clozaril [facility] 08/26/16, 09/02/16, 09/09 Clozaril 100mg am and 150mg hs for psychosis will monitor pulse ativan 1mg bid and 2mg at the nighttime for catatonia and anxiety Cogentin 1 mg amhs for possible EPS Social work evaluation Medical consult appreciated We'll monitor closely it seems pt needs to be on two antipsychotics CoQ10 was started Nrurontin 300mg hs as per neurology team will consider to have another family meeting Estimated Date of D/C: 09/16/16 (pt is improving but slowly, 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
[2016-09-10] MEDS: CO Q PO SCH ×2 (09:00→22:03)
[2016-09-10] MEDS: Ammonium Lactate 12% Cream (140 g) TOP SCH ×3 (09:48→18:36)
--- NOTE | 2016-09-10 15:22 | PCM.PYCHPN ---
Psychiatric Progress Note - Psychiatric Progress Note Patient seen today, length of contact: 30min Patient Chief Complaint: "I still have my concerns about my family and friends, everybody seems to be ..." Problems Identified/Issues Discussed: Suicide/ homicide prevention, past psychiatric h/o, current psychiatric symptoms , medical problems, risk/benefits and alternatives of medications, medications compliance, coping strategies, substance abuse h/o, relapse prevention, importance of follow up with psychiatrist and therapist, discharge plan. Medical Problems: rhabdomyolisis improved Diagnostic Results: Lab Results 08/10/16 07:30: Fasting Glucose 90, Triglycerides 41, Cholesterol 106 L, LDL Cholesterol Direct 55, HDL Cholesterol 43, TSH 3rd Generation 0.86, RPR Nonreactive Vital Signs Temp Pulse Resp BP Pulse Ox 08/16/16 16:36 69 132/83 08/16/16 06:31 98.6 F 80 20 126/77 08/15/16 16:46 69 138/63 08/15/16 06:52 98.2 F 86 18 143/89 08/14/16 16:20 81 125/79 08/14/16 06:00 97.4 F L 69 18 120/84 08/13/16 16:44 73 147/86 08/13/16 06:38 98.2 F 83 19 138/82 08/12/16 14:00 61 123/80 08/12/16 06:53 97.8 F 61 16 99/63 L 100 08/11/16 14:00 79 136/90 08/11/16 06:00 97.9 F 60 16 114/75 08/10/16 16:22 69 120/85 08/10/16 06:00 97.9 F 57 L 16 116/69 08/09/16 21:06 20 Temp Pulse Resp BP Pulse Ox 97.1 F L 92 H 20 127/83 100 08/19/16 07:26 08/19/16 07:26 08/19/16 07:26 08/19/16 07:26 08/12/16 06:53 Temp Pulse Resp BP Pulse Ox 97.2 F L 80 20 117/61 100 08/21/16 07:27 08/21/16 07:27 08/21/16 07:27 08/21/16 07:27 08/12/16 06:53 Temp Pulse Resp BP Pulse Ox 97.7 F 92 H 20 142/92 H 100 08/22/16 06:34 08/22/16 06:34 08/22/16 06:34 08/22/16 06:34 08/12/16 06:53 Temp Pulse Resp BP Pulse Ox 97.2 F L 98 H 21 142/88 100 08/23/16 07:15 08/23/16 16:14 08/23/16 07:15 08/23/16 16:14 08/12/16 06:53 Temp Pulse Resp BP Pulse Ox 97.7 F 94 H 20 143/95 H 100 08/26/16 06:00 08/26/16 16:12 08/26/16 06:00 08/26/16 16:12 08/12/16 06:53 Temp Pulse Resp BP Pulse Ox 97.9 F 89 20 132/83 100 08/29/16 07:34 08/29/16 07:34 08/29/16 07:34 08/29/16 07:34 08/12/16 06:53 Temp Pulse Resp BP Pulse Ox 97.6 F 110 H 20 135/95 H 100 08/30/16 06:30 08/30/16 16:14 08/30/16 06:30 08/30/16 16:14 08/12/16 06:53 Temp Pulse Resp BP Pulse Ox 97.9 F 94 H 20 125/58 L 100 09/03/16 06:49 09/03/16 06:49 09/03/16 06:49 09/03/16 06:49 08/12/16 06:53 Temp Pulse Resp BP Pulse Ox 97.5 F L 103 H 20 134/65 100 09/05/16 07:14 09/05/16 07:14 09/05/16 07:14 09/05/16 07:14 08/12/16 06:53 Temp Pulse Resp BP Pulse Ox 97.8 F 113 H 20 133/65 100 09/09/16 06:46 09/09/16 15:53 09/09/16 06:46 09/09/16 15:53 08/12/16 06:53 DSM 5 Symptoms Update: Patient is a 21-year-old single -[place] male with a history of paranoid schizophrenia, multiple psychiatric hospitalizations (though none noted at this facility) who presented to the emergency room on August 08, 2016 reporting increased paranoia. Patient was seen by overnight family independence case manager who recommended patient be hospitalized for paranoia as he was notably thought-blocked, guarded and paranoid. Patient refused to sign in for a voluntary admission and a screening was called. During this time his laboratory results returned which indicated markedly elevated total creatine kinase of 6814. Patient was admitted medically for rhabdomyolysis. Psychiatry followed patient on the medical floor for one day before patient was medically cleared and transferred to the psychiatric unit. some positive changes pt is more verbal, talkative, affect is more reactive, at the same time pt was paranoid and argumentative with staff, was refusing to take medications, was convinced that staff was giving him not correct medications and not correct doses. pt's mother called this development writer today, pt gave permission to talk to her Crystal [phone], as per mother pt is improving "but very slowly", this wrier educated about tx plan, was educated about side effects of meds what pt was on, pt and mother were educated about thrilafon adjunction, verbalized understanding. clozaril is on titration schedule. pt denied side effects, AIMS 0, no EPS, no tremor, no cogwheel rigidity . pt will be off prolixin for now, seems improving on clozaril. as per mother, there is no improvement Diagnostic Results: Chronic Paranoid Schizophrenia Medication Change: Yes (clozaril increased, thrilafon initiated, cogentin increased, ativan decreas) Medical Record Reviewed: Yes (notes, reports, labs, vitals) Consults ordered or reviewed: medical consult appreciated Mental Status Examination - Cognitive Function Orientation: Person, Place Attention: Poor (somewhat better) Concentration: Poor (somewhat better) Association: Loose Fund of Knowledge: Poor - Mood Mood: Other ("doing better") - Affect Affect: Constricted, Blunted, Flat - Speech Speech: Appropriate - Formal Thought Process Formal Thought Process: Hallucinations (denied all weekend), Delusions (pt convinced that staff is giving him wrong medicaitons and wrong doses), Paranoia (I am concerned about my faimily), Loosening of associations - Suicidal Ideation Suicidal Ideation: No - Homicidal Ideation Homicidal Ideation: No Goal/Treatment Plan - Goal/Treatment Plan Need for Continued Stay: Remain at risks for inpatient hospitalization, Severe depression anxiety, Discharge may exacerbated symptoms, Severe functional impairment Progress Toward Problem(s) and Goals/Treatment Plan: milieu, structure, supportive therapy Clozaril was started 08/26/16, lab sumbitted to Clozaril REMS 08/26/16, 09/02/16, 09/09 Clozaril 100mg am and 200mg hs for psychosis will monitor pulse, WNL today ativan 0.5mg bid and 1mg at the nighttime for catatonia and anxiety Cogentin 2 mg tid for possible EPS thrilafon 4mg tid for psychosis, pt will be on two antipsychotic meds Social work evaluation Medical consult appreciated We'll monitor closely it seems pt needs to be on two antipsychotics CoQ10 was started Nrurontin 300mg hs as per neurology team collaterals appreciated, spoke to mom 09/10/16 Estimated Date of D/C: 09/16/16 (pt is improving but slowly, 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
[2016-09-11] MEDS: CO Q PO SCH ×4 (09:22→22:00)
[2016-09-11] MEDS: Ammonium Lactate 12% Cream (140 g) TOP SCH ×2 (09:23→16:10)
--- NOTE | 2016-09-11 16:20 | PCM.PYCHPN ---
Psychiatric Progress Note - Psychiatric Progress Note Patient seen today, length of contact: 30min Patient Chief Complaint: "I am scared that something bad is going to happen" Problems Identified/Issues Discussed: Suicide/ homicide prevention, past psychiatric h/o, current psychiatric symptoms , medical problems, risk/benefits and alternatives of medications, medications compliance, coping strategies, substance abuse h/o, relapse prevention, importance of follow up with psychiatrist and therapist, discharge plan. Medical Problems: rhabdomyolisis improved Diagnostic Results: Lab Results 08/10/16 07:30: Fasting Glucose 90, Triglycerides 41, Cholesterol 106 L, LDL Cholesterol Direct 55, HDL Cholesterol 43, TSH 3rd Generation 0.86, RPR Nonreactive Vital Signs Temp Pulse Resp BP Pulse Ox 08/16/16 16:36 69 132/83 08/16/16 06:31 98.6 F 80 20 126/77 08/15/16 16:46 69 138/63 08/15/16 06:52 98.2 F 86 18 143/89 08/14/16 16:20 81 125/79 08/14/16 06:00 97.4 F L 69 18 120/84 08/13/16 16:44 73 147/86 08/13/16 06:38 98.2 F 83 19 138/82 08/12/16 14:00 61 123/80 08/12/16 06:53 97.8 F 61 16 99/63 L 100 08/11/16 14:00 79 136/90 08/11/16 06:00 97.9 F 60 16 114/75 08/10/16 16:22 69 120/85 08/10/16 06:00 97.9 F 57 L 16 116/69 08/09/16 21:06 20 Temp Pulse Resp BP Pulse Ox 97.1 F L 92 H 20 127/83 100 08/19/16 07:26 08/19/16 07:26 08/19/16 07:26 08/19/16 07:26 08/12/16 06:53 Temp Pulse Resp BP Pulse Ox 97.2 F L 80 20 117/61 100 08/21/16 07:27 08/21/16 07:27 08/21/16 07:27 08/21/16 07:27 08/12/16 06:53 Temp Pulse Resp BP Pulse Ox 97.7 F 92 H 20 142/92 H 100 04/27/17 06:34 08/22/16 06:34 08/22/16 06:34 08/22/16 06:34 08/12/16 06:53 Temp Pulse Resp BP Pulse Ox 97.2 F L 98 H 21 142/88 100 08/23/16 07:15 08/23/16 16:14 08/23/16 07:15 08/23/16 16:14 08/12/16 06:53 Temp Pulse Resp BP Pulse Ox 97.7 F 94 H 20 143/95 H 100 08/26/16 06:00 08/26/16 16:12 08/26/16 06:00 08/26/16 16:12 08/12/16 06:53 Temp Pulse Resp BP Pulse Ox 97.9 F 89 20 132/83 100 08/29/16 07:34 08/29/16 07:34 08/29/16 07:34 08/29/16 07:34 08/12/16 06:53 Temp Pulse Resp BP Pulse Ox 97.6 F 110 H 20 135/95 H 100 08/30/16 06:30 08/30/16 16:14 08/30/16 06:30 08/30/16 16:14 08/12/16 06:53 Temp Pulse Resp BP Pulse Ox 97.9 F 94 H 20 125/58 L 100 09/03/16 06:49 09/03/16 06:49 09/03/16 06:49 09/03/16 06:49 08/12/16 06:53 Temp Pulse Resp BP Pulse Ox 97.5 F L 103 H 20 134/65 100 09/05/16 07:14 09/05/16 07:14 09/05/16 07:14 09/05/16 07:14 08/12/16 06:53 Temp Pulse Resp BP Pulse Ox 97.8 F 113 H 20 133/65 100 09/09/16 06:46 09/09/16 15:53 09/09/16 06:46 09/09/16 15:53 08/12/16 06:53 Temp Pulse Resp BP Pulse Ox 97.5 F L 112 H 20 145/85 100 09/11/16 07:14 09/11/16 07:14 09/11/16 07:14 09/11/16 07:14 08/12/16 06:53 DSM 5 Symptoms Update: Patient is a 21-year-old single -[place] male with a history of paranoid schizophrenia, multiple psychiatric hospitalizations (though none noted at this facility) who presented to the emergency room on August 08, 2016 reporting increased paranoia. Patient was seen by overnight client support coordinator who recommended patient be hospitalized for paranoia as he was notably thought-blocked, guarded and paranoid. Patient refused to sign in for a voluntary admission and a screening was called. During this time his laboratory results returned which indicated markedly elevated total creatine kinase of 6814. Patient was admitted medically for rhabdomyolysis. Psychiatry followed patient on the medical floor for one day before patient was medically cleared and transferred to the psychiatric unit. some positive changes pt is more verbal, talkative, at the same time pt was refusing to take medications, was argumentative today, it took long time for the RN to give medications. this check writer salesperson spoke to the pt about it, but pt was irritable, pt said "I am trying to cope with stress, I do not want to take medications now", pt said that he is "scared that something horrible is gonna happened", considering all the above, pt most likely will be not compliant with clozaril will start tapering it down (stopping abruptly could cause seizures). pt does not want to be on injectable form of meds, Trifaphon was initiated yesterday, tolerated well, will increase it today. 09/10/16, pt gave permission to talk to her Crystal [phone], as per mother pt is improving "but very slowly", this wrier educated about tx plan, was educated about side effects of meds what pt was on, pt and mother were educated about thrilafon adjunction, verbalized understanding. clozaril will start tapering it down. pt denied side effects, AIMS 0, no EPS, no tremor, no cogwheel rigidity . Diagnostic Results: Chronic Paranoid Schizophrenia Medication Change: Yes (clozaril decreased, thrilaphon increased, ativan increased) Medical Record Reviewed: Yes (notes, reports, labs, vitals) Consults ordered or reviewed: medical consult appreciated Mental Status Examination - Cognitive Function Orientation: Person, Place Attention: Poor (somewhat better) Concentration: Poor (somewhat better) Association: Loose Fund of Knowledge: Poor - Mood Mood: Other ("doing better") - Affect Affect: Constricted, Blunted, Flat - Speech Speech: Appropriate - Formal Thought Process Formal Thought Process: Hallucinations (denied all weekend), Delusions (pt convinced that staff is giving him wrong medicaitons and wrong doses), Paranoia (I am concerned about my faimily), Loosening of associations - Suicidal Ideation Suicidal Ideation: No - Homicidal Ideation Homicidal Ideation: No Goal/Treatment Plan - Goal/Treatment Plan Need for Continued Stay: Remain at risks for inpatient hospitalization, Severe depression anxiety, Discharge may exacerbated symptoms, Severe functional impairment Progress Toward Problem(s) and Goals/Treatment Plan: milieu, structure, supportive therapy Clozaril was started 08/26/16, lab sumbitted to Clozaril REMS 08/26/16, 09/02/16, 09/09 Clozaril will be decreased to 100mg am and 150mg hs for psychosis with the plan to taper down, pt seems to have compliance issues will monitor pulse, WNL today ativan 0.5mg bid and 2mg at the nighttime for catatonia and anxiety Cogentin 2 mg tid for possible EPS thrilafon 8mg tid for psychosis, pt will be on two antipsychotic meds Social work evaluation Medical consult appreciated We'll monitor closely it seems pt needs to be on two antipsychotics CoQ10 was started Nrurontin 300mg hs as per neurology team collaterals appreciated, spoke to mom 09/10/16 Estimated Date of D/C: 09/16/16 (pt is improving but slowly, 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
--- NOTE | 2016-09-13 08:18 | PN ---
DATE: 09/12/2016 FOLLOWUP NOTE Shortly, the patient is a 21-year-old male with long and debilitating history of catar[place] izophrenia, history of noncompliance with the medications for the past year prior to coming to the [facility]. The patient has multiple admissions to the psychiatric inpatient unit. Prior to coming to [facility], the patient was in [facility], was rejected. The patient ran to this [facility] looking for help. The patient was initially admitted on the medical side after medical stabil ization. The patient was transferred to the psychiatric inpatient unit for further evaluation and st abilization. The patient was seen today at the morning time next to the nursing station. The patient stayed in [facility] for the past one month and a half due to the treatment resistant psychosis. This public relations writer i mplemented Prolixin, as well as Zyprexa. Patient was not improving. This public relations writer initiated Clozaril. The patient was not improving on Clozaril, and the patient had side effect of tachycardia, was not able to tolerate that medication. This public relations writer is tapering that medication down. The patient also e xpressed no interest to continue taking Clozaril after discharge, and the chances that he will have n oncompliance with medication is high, and this public relations writer will not jeopardize the patient over Clozaril. This public relations writer implemented, through a phone the day before yesterday, and the patient is on titrating sc hedule for Trilafon. The patient so far tolerated that well. As per nursing report, the patient sle pt well last night, at times argumentative and has long time to take medication. This public relations writer offered the patient injectable form of the medication. The patient refused to be on injectable form. This public relations writer either haloperidol or Prolixin will be a good choice, but on haloperidol , the patient would h ave severe EPS symptoms. The patient has severe EPS symptoms on Risperdal in the past. That is why he was not compliant with the medication for the past year. This public relations writer had prolonged conversation with the patient's mother the day before yesterday, and treatm ent plan was discussed in details. LABORATORY DATA: Labs within normal limits. VITAL SIGNS: Within normal limits. MENTAL STATUS EXAMINATION: The patient still has disorganized thought process. Sometimes answers ar e not related to the questions being asked. Intense eye contact, poor personal hygiene, very strong body odor, as per nursing staff as well as PCP. The patient is not taking a shower. Mood described, "I'm fine and want to go home." Affect was irritable and angry. Thought content: The patient is s till internally preoccupied, paranoid. Thought process is disorganized. The patient denied thoughts of harming himself or others. Insight and judgment are still limited. Impulses are not predictable . IMPRESSION: Schizophrenia, spectrum disorder. PLAN: Continue current management. Trilafon was increased to 16 mg twice a day. Cogentin will be i ncreased to 3 mg twice a day. Clozaril is on tapering dose. The patient is on 100 mg at the morning time, 100 mg at the nighttime, as needed medication - Ativan. Family involvement. Social work eval uation. Olena Gardner MD cc: [id number] TT: 09/12/2016 15:34:35 Confirmation # [id number] Dictation # [id number] luther
[2016-09-13] MEDS: Ammonium Lactate 12% Cream (140 g) TOP SCH ×2 (14:15→16:18)
[2016-09-13] MEDS: CO Q PO SCH ×2 (14:29→21:46)
--- NOTE | 2016-09-13 17:30 | PCM.PYCHPN ---
Psychiatric Progress Note - Psychiatric Progress Note Patient seen today, length of contact: 30min Patient Chief Complaint: "I do not agree, I am hm...., my mother does not want me to take medications, I want to stay positive and concentrate on coping skills". Problems Identified/Issues Discussed: Suicide/ homicide prevention, past psychiatric h/o, current psychiatric symptoms , medical problems, risk/benefits and alternatives of medications, medications compliance, coping strategies, substance abuse h/o, relapse prevention, importance of follow up with psychiatrist and therapist, discharge plan. Medical Problems: rhabdomyolisis improved Diagnostic Results: Lab Results 08/10/16 07:30: Fasting Glucose 90, Triglycerides 41, Cholesterol 106 L, LDL Cholesterol Direct 55, HDL Cholesterol 43, TSH 3rd Generation 0.86, RPR Nonreactive Vital Signs Temp Pulse Resp BP Pulse Ox 08/16/16 16:36 69 132/83 08/16/16 06:31 98.6 F 80 20 126/77 08/15/16 16:46 69 138/63 08/15/16 06:52 98.2 F 86 18 143/89 08/14/16 16:20 81 125/79 08/14/16 06:00 97.4 F L 69 18 120/84 08/13/16 16:44 73 147/86 08/13/16 06:38 98.2 F 83 19 138/82 08/12/16 14:00 61 123/80 08/12/16 06:53 97.8 F 61 16 99/63 L 100 08/11/16 14:00 79 136/90 08/11/16 06:00 97.9 F 60 16 114/75 08/10/16 16:22 69 120/85 08/10/16 06:00 97.9 F 57 L 16 116/69 08/09/16 21:06 20 Temp Pulse Resp BP Pulse Ox 97.1 F L 92 H 20 127/83 100 08/19/16 07:26 08/19/16 07:26 08/19/16 07:26 08/19/16 07:26 08/12/16 06:53 Temp Pulse Resp BP Pulse Ox 97.2 F L 80 20 117/61 100 08/21/16 07:27 08/21/16 07:27 08/21/16 07:27 08/21/16 07:27 08/12/16 06:53 Temp Pulse Resp BP Pulse Ox 97.7 F 92 H 20 142/92 H 100 08/22/16 06:34 08/22/16 06:34 08/22/16 06:34 08/22/16 06:34 08/12/16 06:53 Temp Pulse Resp BP Pulse Ox 97.2 F L 98 H 21 142/88 100 08/23/16 07:15 08/23/16 16:14 08/23/16 07:15 08/23/16 16:14 08/12/16 06:53 Temp Pulse Resp BP Pulse Ox 97.7 F 94 H 20 143/95 H 100 08/26/16 06:00 08/26/16 16:12 08/26/16 06:00 08/26/16 16:12 08/12/16 06:53 Temp Pulse Resp BP Pulse Ox 97.9 F 89 20 132/83 100 08/29/16 07:34 08/29/16 07:34 08/29/16 07:34 08/29/16 07:34 08/12/16 06:53 Temp Pulse Resp BP Pulse Ox 97.6 F 110 H 20 135/95 H 100 08/30/16 06:30 08/30/16 16:14 08/30/16 06:30 08/30/16 16:14 08/12/16 06:53 Temp Pulse Resp BP Pulse Ox 97.9 F 94 H 20 125/58 L 100 09/03/16 06:49 09/03/16 06:49 09/03/16 06:49 09/03/16 06:49 08/12/16 06:53 Temp Pulse Resp BP Pulse Ox 97.5 F L 103 H 20 134/65 100 09/05/16 07:14 09/05/16 07:14 09/05/16 07:14 09/05/16 07:14 08/12/16 06:53 Temp Pulse Resp BP Pulse Ox 97.8 F 113 H 20 133/65 100 09/09/16 06:46 09/09/16 15:53 09/09/16 06:46 09/09/16 15:53 08/12/16 06:53 Temp Pulse Resp BP Pulse Ox 97.5 F L 112 H 20 145/85 100 09/11/16 07:14 09/11/16 07:14 09/11/16 07:14 09/11/16 07:14 08/12/16 06:53 Temp Pulse Resp BP Pulse Ox 97.2 F L 105 H 22 135/94 H 100 09/13/16 07:14 09/13/16 16:40 09/13/16 07:14 09/13/16 16:40 08/12/16 06:53 Laboratory Last Values WBC 8.2 10^3/ul (4.5-11.0) 09/09/16 07:30 RBC 4.51 10^6/uL (3.5-6.1) 09/09/16 07:30 Hgb 14.0 gm/dL (14.0-18.0) 09/09/16 07:30 Hct 40.9 % (42.0-52.0) L 09/09/16 07:30 MCV 90.7 fL (80.0-105.0) 09/09/16 07:30 MCH 31.0 pg (25.0-35.0) 09/09/16 07:30 MCHC 34.2 g/dl (31.0-37.0) 09/09/16 07:30 RDW 13.2 % (11.5-14.5) 09/09/16 07:30 Plt Count 167 10^3/uL (120.0-450.0) 09/09/16 07:30 MPV 10.7 fl (7.0-11.0) 09/09/16 07:30 Gran % 70.8 % (50.0-68.0) H 09/09/16 07:30 Lymph % (Auto) 14.4 % (22.0-35.0) L 09/09/16 07:30 [place] % (Auto) 12.3 % (1.0-6.0) H 09/09/16 07:30 Eos % (Auto) 2.3 % (1.5-5.0) 09/09/16 07:30 Baso % (Auto) 0.2 % (0.0-3.0) 09/09/16 07:30 Gran # 5.82 (1.4-6.5) 09/09/16 07:30 Lymph # 1.2 (1.2-3.4) 09/09/16 07:30 [place] # 1.0 (0.1-0.6) H 09/09/16 07:30 Eos # 0.2 (0.0-0.7) 09/09/16 07:30 Baso # 0.02 K/mm3 (0.0-2.0) 09/09/16 07:30 Fasting Glucose 90 mg/dL (65-110) 08/10/16 07:30 Triglycerides 41 mg/dL (35-160) 08/10/16 07:30 Cholesterol 106 mg/dL (130-200) L 08/10/16 07:30 LDL Cholesterol Direct 55 mg/dL (0-129) 08/10/16:30 HDL Cholesterol 43 mg/dL (29-60) 08/10/16 07:30 TSH 3rd Generation 0.86 mIU/mL (0.46-4.68) 08/10/16 07:30 RPR Nonreactive (NONREACTIVE) 08/10/16 07:30 DSM 5 Symptoms Update: Patient is a 21-year-old single -O[place]i male with a history of paranoid schizophrenia, multiple psychiatric hospitalizations (though none noted at this facility) who presented to the emergency room on August 08, 2016 reporting increased paranoia. Patient was seen by overnight immunologist who recommended patient be hospitalized for paranoia as he was notably thought-blocked, guarded and paranoid. pt also had impression that his identity was stolen and now he is a female by the name "". Patient refused to sign in for a voluntary admission and a screening was called. During this time his laboratory results returned which indicated markedly elevated total creatine kinase of 6814. Patient was admitted medically for rhabdomyolysis. Psychiatry followed patient on the medical floor for one day before patient was medically cleared and transferred to the psychiatric unit. 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 This typewriter assembler tried zyprexa, max dose and pt was not improving pt was started on prolixin, was not improving pt was having severe EPS on Risperdal then this typewriter assembler implemented clozaril, pt was on 300mg daily but still was not improving, moreover on clozaril pt has side effect of tachycardia and pt was not improving either, was not showering, had thought process disorganized, still paranoid, severe thought blocking, this typewriter assembler also had concerns about compliance with clozaril pt was educated about Trilafon, pt was started on this medication 09/10/16, pt started to show some improvements with his symptoms, thought process became little more organized, but unfortunately staff contacted this typewriter assembler 09/12/16 at 7pm reporting pt submitted 48hr notice. This typewriter assembler spoke to the pt today during the treatment team, pt was educated about tx plan and tapering dose of clozaril and titration of Trilafon, pt was argumentative, refused taking medications since this morning, refused to rescinded 48 hr notice. Pt presented to have disorganized thought process, pt has poverty of thoughts and speech, pt also has difficulties to express himself , pt was not showering, refusing to take medications. This write contacted pt's mother Lexus [phone], educated about the tx plan , pt's mother also feels pt might benefit from staying in the hospital longer. pt refused to rescind 48hr notice requested to speak to his father, after that pt refused to take medications and refused to take meds. at this time this typewriter assembler has no other choice than call [facility] [place] screening process. pt denied side effects, AIMS 0, no EPS, no tremor, no cogwheel rigidity . Diagnostic Results: Chronic Paranoid Schizophrenia Medication Change: Yes (clozaril d/c, trilafon continued) Medical Record Reviewed: Yes (notes, reports, labs, vitals) Consults ordered or reviewed: medical consult appreciated Mental Status Examination - Cognitive Function Orientation: Person, Place Attention: Poor (somewhat better) Concentration: Poor (somewhat better) Association: Loose Fund of Knowledge: Poor - Mood Mood: Other ("doing better") - Affect Affect: Constricted, Blunted, Flat - Speech Speech: Appropriate - Formal Thought Process Formal Thought Process: Hallucinations (denied all weekend), Delusions (pt convinced that staff is giving him wrong medicaitons and wrong doses), Paranoia (I am concerned about my faimily), Loosening of associations - Suicidal Ideation Suicidal Ideation: No - Homicidal Ideation Homicidal Ideation: No Goal/Treatment Plan - Goal/Treatment Plan Need for Continued Stay: Remain at risks for inpatient hospitalization, Severe depression anxiety, Discharge may exacerbated symptoms, Severe functional impairment Progress Toward Problem(s) and Goals/Treatment Plan: milieu, structure, supportive therapy Clozaril was d/c, pt will be not compliant will monitor pulse, WNL today ativan 0.5mg bid and 2mg at the nighttime for catatonia and anxiety Cogentin 3 mg po amhs for EPS thrilafon 16mg po amsh for psychosis Social work evaluation Medical consult appreciated We'll monitor closely it seems pt needs to be on two antipsychotics CoQ10 was started by neurology team Nrurontin 300mg hs as per neurology team collaterals appreciated, spoke to mom 09/13/16 [facility] screening process will be initiated, this typewriter assembler requested medical records to be faxed over to [facility] screening unit In case patient will be not accepted by [facility] nursing staff was educated to let patient go at the morning time and don't discharge patient overnight time unless patient will be picked up by the family Nursing staff needs to contact patient mother and notify about final decision by [facility] In case patient will be not accepted by [facility] patient will be discharged AGAINST MEDICAL ADVICE This typewriter assembler will live prescription for Trilafon 16 mg twice a day to week supply and 1 refill Cogentin 3 mg at the morning time at the nighttime for EPS symptoms to look supply and 1 refill Ativan 0.5 mg twice a day and 2 mg at the nighttime for catatonia Estimated Date of D/C: 09/16/16 (pt is improving but slowly, 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
[2016-09-13 22:35] LABS: HEMATOCRIT 43.3 % (42.0-52.0); MEAN CORPUSCULAR HEMOGLOBIN 31.7 pg (25.0-35.0); MEAN CORPUSCULAR HGB CONC 34.9 g/dl (31.0-37.0); MEAN PLATELET VOLUME 10.9 fl (7.0-11.0); RED CELL DISTRIBUTION WIDTH 12.8 % (11.5-14.5); WHITE BLOOD COUNT 10.3 10^3/ul (4.5-11.0)
[2016-09-13 22:42] LABS: ALB/GLOB RATIO 1.3 (1.1-1.8); ALKALINE PHOSPHATASE 56 U/L (38-133); ALT/SGPT 30 U/L (7-56); AST/SGOT 17 U/L (15-59); BILIRUBIN,TOTAL 0.8 mg/dL (0.2-1.3); BLOOD UREA NITROGEN 11 mg/dL (7-21); CALCIUM 9.7 mg/dL (8.4-10.5); CARBON DIOXIDE 30 mmol/L (21-33); CHLORIDE 101 mmol/L (98-107); GFR AFRICAN-AMERICAN > 60; GLUCOSE,RANDOM 100 mg/dL (70-110); POTASSIUM 3.8 mmol/L (3.6-5.0); SODIUM 144 mmol/L (132-148); TOTAL PROTEIN 8.1 g/dL (5.8-8.3)
[2016-09-14 02:35] LABS: URINE BILIRUBIN NEGATIVE (NEGATIVE); URINE BLOOD NEGATIVE (NEGATIVE); URINE GLUCOSE (UA) NEGATIVE (NEGATIVE); URINE KETONE NEGATIVE (NEGATIVE); URINE LEUKOCYTE ESTERASE NEGATIVE Leu/uL (NEGATIVE); URINE PROTEIN NEGATIVE mg/dL (<30 mg/dL); URINE UROBILINOGEN 0.2 E.U./dL (<1 E.U./dL)
[2016-09-14 02:37] LABS: URINE APPEARANCE CLEAR (CLEAR); URINE COLOR YELLOW (YELLOW)
[2016-09-14] MEDS: Ammonium Lactate 12% Cream (140 g) TOP SCH ×2 (08:55→15:49)
[2016-09-14] MEDS: CO Q PO SCH ×2 (09:10→21:47)
--- NOTE | 2016-09-15 05:25 | PCM.PYCHDC ---
Mental Status Examination - Mental Status Examination Orientation: Person, Place, Situation Memory: Impaired Mood: Neutral Affect: Blunted (A LITTLE MORE REACTIVED AND ANIMATED SINCE ADMISSION) Speech: Soft Attention: WNL Concentration: Poor Association: Loose Fund of Knowledge: Poor Formal Thought Process: Hallucinations (DENIED AT D/C ), Delusions (NONE ELICITED HOWEVER PATIENT IS GUARDED), Paranoia (GUARDED BUT NO PARANOID DELUSIONS ELICITED), Loosening of associations (IMPROVING BUT STILL PERSISTS) Suicidal Ideation: No Current Homicidal Ideation?: No Discharge Summary - Discharge Note Reason for Hospitalization: Patient is a 21-year-old single -Dominican male with a history of paranoid schizophrenia, multiple psychiatric hospitalizations (though none noted at this facility) who presented to the emergency room on August 08, 2016 reporting increased paranoia. Patient was seen by overnight regional psychiatric director who recommended patient be hospitalized for paranoia as he was notably thought-blocked, guarded and paranoid. pt also had impression that his identity was stolen and now he is a female by the name "". Patient refused to sign in for a voluntary admission and a screening was called. During this time his laboratory results returned which indicated markedly elevated total creatine kinase of 6814. Patient was admitted medically for rhabdomyolysis. Psychiatry followed patient on the medical floor for one day before patient was medically cleared and transferred to the psychiatric unit. Laboratory Data: Abnormal Lab Results 09/13/16 09/13/16 09/14/16 22:29 22:29 00:00 WBC 10.3 D RBC 4.76 Hgb 15.1 Hct 43.3 MCV 91.0 MCH 31.7 MCHC 34.9 RDW 12.8 Plt Count 195 MPV 10.9 Sodium 144 Potassium 3.8 Chloride 101 Carbon Dioxide 30 Anion Gap 17 BUN 11 Creatinine 1.0 Est GFR ( Amer) > 60 Est GFR (Non-Af Amer) > 60 Random Glucose 100 Calcium 9.7 Total Bilirubin 0.8 AST 17 ALT 30 Alkaline Phosphatase 56 Total Creatine Kinase 79 Total Protein 8.1 Albumin 4.5 Globulin 3.6 Albumin/Globulin Ratio 1.3 Urine Color Urine Appearance Urine pH Ur Specific [place] Urine Protein Urine Glucose (UA) Urine Ketones Urine Blood Urine Nitrate Urine Bilirubin Urine Urobilinogen Ur Leukocyte Esterase Urine Opiates Screen Negative Urine Methadone Screen Negative Ur Barbiturates Screen Negative Ur Phencyclidine Scrn Negative Ur Amphetamines Screen Negative U Benzodiazepines Scrn Negative U Oth Cocaine Metabols Negative U Cannabinoids Screen Negative 09/14/16 00:00 WBC RBC Hgb Hct MCV MCH MCHC RDW Plt Count MPV Sodium Potassium Chloride Carbon Dioxide Anion Gap BUN Creatinine Est GFR ( Amer) Est GFR (Non-Af Amer) Random Glucose Calcium Total Bilirubin AST ALT Alkaline Phosphatase Total Creatine Kinase Total Protein Albumin Globulin Albumin/Globulin Ratio Urine Color Yellow Urine Appearance Clear Urine pH 6.0 Ur Specific [place] 1.010 Urine Protein Negative Urine Glucose (UA) Negative Urine Ketones Negative Urine Blood Negative Urine Nitrate Negative Urine Bilirubin Negative Urine Urobilinogen 0.2 Ur Leukocyte Esterase Negative Urine Opiates Screen Urine Methadone Screen Ur Barbiturates Screen Ur Phencyclidine Scrn Ur Amphetamines Screen U Benzodiazepines Scrn U Oth Cocaine Metabols U Cannabinoids Screen Laboratory Tests 08/10/16 08/10/16 08/10/16 07:30 07:30 07:30 WBC RBC Hgb Hct MCV MCH MCHC RDW Plt Count MPV Gran % Lymph % (Auto) [place] % (Auto) Eos % (Auto) Baso % (Auto) Gran # Lymph # [place] # Eos # Baso # Sodium Potassium Chloride Carbon Dioxide Anion Gap BUN Creatinine Est GFR ( Amer) Est GFR (Non-Af Amer) Random Glucose Fasting Glucose 90 Calcium Total Bilirubin AST ALT Alkaline Phosphatase Total Creatine Kinase Total Protein Albumin Globulin Albumin/Globulin Ratio Triglycerides 41 Cholesterol 106 L LDL Cholesterol Direct 55 HDL Cholesterol 43 TSH 3rd Generation 0.86 Urine Color Urine Appearance Urine pH Ur Specific [place] Urine Protein Urine Glucose (UA) Urine Ketones Urine Blood Urine Nitrate Urine Bilirubin Urine Urobilinogen Ur Leukocyte Esterase Urine Opiates Screen Urine Methadone Screen Ur Barbiturates Screen Ur Phencyclidine Scrn Ur Amphetamines Screen U Benzodiazepines Scrn U Oth Cocaine Metabols U Cannabinoids Screen RPR Nonreactive 08/26/16 09/02/16 09/09/16 12:40 07:00 07:30 WBC 9.7 D 7.7 D 8.2 RBC 4.66 4.69 4.51 Hgb 14.6 14.6 14.0 Hct 42.1 42.4 40.9 L MCV 90.3 90.4 90.7 MCH 31.3 31.1 31.0 MCHC 34.7 34.4 34.2 RDW 12.7 12.5 13.2 Plt Count 209 176 167 MPV 10.7 11.3 H 10.7 Gran % 73.2 H 58.7 70.8 H Lymph % (Auto) 18.6 L 25.3 14.4 L [place] % (Auto) 7.0 H 13.0 H 12.3 H Eos % (Auto) 1.0 L 2.9 2.3 Baso % (Auto) 0.2 0.1 0.2 Gran # 7.13 H 4.52 5.82 Lymph # 1.8 2.0 1.2 [place] # 0.7 H 1.0 H 1.0 H Eos # 0.1 0.2 0.2 Baso # 0.02 0.01 0.02 Sodium Potassium Chloride Carbon Dioxide Anion Gap BUN Creatinine Est GFR ( Amer) Est GFR (Non-Af Amer) Random Glucose Fasting Glucose Calcium Total Bilirubin AST ALT Alkaline Phosphatase Total Creatine Kinase Total Protein Albumin Globulin Albumin/Globulin Ratio Triglycerides Cholesterol LDL Cholesterol Direct HDL Cholesterol TSH 3rd Generation Urine Color Urine Appearance Urine pH Ur Specific [place] Urine Protein Urine Glucose (UA) Urine Ketones Urine Blood Urine Nitrate Urine Bilirubin Urine Urobilinogen Ur Leukocyte Esterase Urine Opiates Screen Urine Methadone Screen Ur Barbiturates Screen Ur Phencyclidine Scrn Ur Amphetamines Screen U Benzodiazepines Scrn U Oth Cocaine Metabols U Cannabinoids Screen RPR 09/13/16 09/13/16 09/14/16 22:29 22:29 00:00 WBC 10.3 D RBC 4.76 Hgb 15.1 Hct 43.3 MCV 91.0 MCH 31.7 MCHC 34.9 RDW 12.8 Plt Count 195 MPV 10.9 Gran % Lymph % (Auto) [place] % (Auto) Eos % (Auto) Baso % (Auto) Gran # Lymph # [place] # Eos # Baso # Sodium 144 Potassium 3.8 Chloride 101 Carbon Dioxide 30 Anion Gap 17 BUN 11 Creatinine 1.0 Est GFR ( Amer) > 60 Est GFR (Non-Af Amer) > 60 Random Glucose 100 Fasting Glucose Calcium 9.7 Total Bilirubin 0.8 AST 17 ALT 30 Alkaline Phosphatase 56 Total Creatine Kinase 79 Total Protein 8.1 Albumin 4.5 Globulin 3.6 Albumin/Globulin Ratio 1.3 Triglycerides Cholesterol LDL Cholesterol Direct HDL Cholesterol TSH 3rd Generation Urine Color Urine Appearance Urine pH Ur Specific [place] Urine Protein Urine Glucose (UA) Urine Ketones Urine Blood Urine Nitrate Urine Bilirubin Urine Urobilinogen Ur Leukocyte Esterase Urine Opiates Screen Negative Urine Methadone Screen Negative Ur Barbiturates Screen Negative Ur Phencyclidine Scrn Negative Ur Amphetamines Screen Negative U Benzodiazepines Scrn Negative U Oth Cocaine Metabols Negative U Cannabinoids Screen Negative RPR 09/14/16 00:00 WBC RBC Hgb Hct MCV MCH MCHC RDW Plt Count MPV Gran % Lymph % (Auto) [place] % (Auto) Eos % (Auto) Baso % (Auto) Gran # Lymph # [place] # Eos # Baso # Sodium Potassium Chloride Carbon Dioxide Anion Gap BUN Creatinine Est GFR ( Amer) Est GFR (Non-Af Amer) Random Glucose Fasting Glucose Calcium Total Bilirubin AST ALT Alkaline Phosphatase Total Creatine Kinase Total Protein Albumin Globulin Albumin/Globulin Ratio Triglycerides Cholesterol LDL Cholesterol Direct HDL Cholesterol TSH 3rd Generation Urine Color Yellow Urine Appearance Clear Urine pH 6.0 Ur Specific [place] 1.010 Urine Protein Negative Urine Glucose (UA) Negative Urine Ketones Negative Urine Blood Negative Urine Nitrate Negative Urine Bilirubin Negative Urine Urobilinogen 0.2 Ur Leukocyte Esterase Negative Urine Opiates Screen Urine Methadone Screen Ur Barbiturates Screen Ur Phencyclidine Scrn Ur Amphetamines Screen U Benzodiazepines Scrn U Oth Cocaine Metabols U Cannabinoids Screen RPR Consultations:: List each consultation separately and include: 1. Reason for request. 2. Findings. 3. Follow-up Consultations: See by Dr. Carey on 08/10/16 SIGNED OFF Seen by Podiatry, Dr. Beck ON 08/24/16 SIGNED OFF Seen by Neurology, Dr. Cope on 09/03/16, recommended Neurontin [address] 09/04/16 WNL. SIGNED OFF Summary of Hospital Course include:: 1. Description of specific treatment plan utilized for patients during their course of treatmen. 2. Summarize the time- course for resolution of acute symptoms and/or regressed behaviors. 3. Describe issues identified and worked on during hospitalization. 4. Describe medication utilized. 5. Describe medical problems identified and treated. 6. Reassessment of suicide risk Summary of Hospital Course: PER DR. LERNER'S SUMMARY AND PROGRESS NOTE DATED 09/13/16 Patient is a 21-year-old single -Dominican male with a history of paranoid schizophrenia, multiple psychiatric hospitalizations (though none noted at this facility) who presented to the emergency room on August 08, 2016 reporting increased paranoia. Patient was seen by overnight regional psychiatric director who recommended patient be hospitalized for paranoia as he was notably thought-blocked, guarded and paranoid. pt also had impression that his identity was stolen and now he is a female by the name "". Patient refused to sign in for a voluntary admission and a screening was called. During this time his laboratory results returned which indicated markedly elevated total creatine kinase of 6814. Patient was admitted medically for rhabdomyolysis. Psychiatry followed patient on the medical floor for one day before patient was medically cleared and transferred to the psychiatric unit. 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 This senior copywriter tried zyprexa, max dose and pt was not improving pt was started on prolixin, was not improving pt was having severe EPS on Risperdal then this senior copywriter implemented clozaril, pt was on 300mg daily but still was not improving, moreover on clozaril pt has side effect of tachycardia and pt was not improving either, was not showering, had thought process disorganized, still paranoid, severe thought blocking, this senior copywriter also had concerns about compliance with clozaril pt was educated about Trilafon, pt was started on this medication 09/10/16, pt started to show some improvements with his symptoms, thought process became little more organized, but unfortunately staff contacted this senior copywriter 09/12/16 at 7pm reporting pt submitted 48hr notice. This senior copywriter spoke to the pt today during the treatment team, pt was educated about tx plan and tapering dose of clozaril and titration of Trilafon, pt was argumentative, refused taking medications since this morning, refused to rescinded 48 hr notice. Pt presented to have disorganized thought process, pt has poverty of thoughts and speech, pt also has difficulties to express himself , pt was not showering, refusing to take medications. This write contacted pt's mother Lexus [phone], educated about the tx plan , pt's mother also feels pt might benefit from staying in the hospital longer. pt refused to rescind 48hr notice requested to speak to his father, after that pt refused to take medications and refused to take meds. at this time this senior copywriter has no other choice than call [facility] [place] for screening process. pt denied side effects, AIMS 0, no EPS, no tremor, no cogwheel rigidity . Social history Patient was born and raised in [place]. He's single and has no children. He lives with his mother. Patient reported he graduate high school. He is unemployed. He denies any history of drug or alcohol issues and denies ever being arrested Psychiatric history Patient reports that he has been psychiatrically hospitalized however indicate that it's been 1-2 years since his last hospitalization. Patient has not been taking any minute if I catch medication since then. Patient reports a history of treatment with risperdal and zyprexa in the past. While patient was on the medical floor, his mother informed nursing that patient had a negative reaction to risperdal in the past. Patient denies any history of suicide attempts. PROGRESS NOTE ON DAY OF SCREENING PATIENT CONTINUES TO REFUSE TO RETRACT 48 HOUR NOTICE He was interviewed at bedside. Still appears guarded but with improved reactivity and focus since admission. He reports that he feels better since admission and denies any hallucinations. He doesn't appear to be responding to internal stimuli. Thought process is a little scattered, this can be noted during the interview as it progressed but not during simple 1:1 interactions. He generally minimizes his symptoms and denies any complaints. Reports he is sleeping well. Denies thoughts of being monitored or persecuted or followed. Denied belief that others were trying to harm him and in this respect he denied thoughts to harm others. Reported his mood as "good" and upon further inquiry, indicated he was hopeful. Of note: patient has been refusing medications PATIENT WAS ACCEPTED FOR INVOLUNTARY [facility] TRANSFER HOWEVER THERE ARE NO BEDS AVAILABLE OF THIS NOTE. - Final Diagnosis (DSM 5) Condition upon Discharge: GUARDED DSM 5: CHRONIC PARANOID SCHIZOPHRENIA Disposition: OTHER INSTITUTION Follow-up Treatment Plan: PATIENT ACCEPTED TO [facility] FOR INVOLUNTARY TRANSFER, THERE ARE NO BEDS OF THIS NOTE Prescriptions/Medication Reconciliation: Benztropine [Benztropine Mesylate] 1 mg PO AMHS #30 tab Benztropine [Benztropine Mesylate] 2 mg PO AMHS #30 tab Gabapentin [Neurontin] 400 mg PO HS #14 cap LORazepam [Ativan] 2 mg PO HS #14 tab LORazepam [Ativan] 0.5 mg PO BID #30 tab Perphenazine 16 mg PO AMHS #90 tab - Smoking Cessation Smoking Cessation Medication prescribed: No - Antipsychotic Medications Pt discharged on 2 or more routine antipsychotic medications: No
--- NOTE | 2016-09-15 08:56 | PCM.PYCHPN ---
Psychiatric Progress Note - Psychiatric Progress Note Patient seen today, length of contact: 25 min Patient Chief Complaint: "doing better" Problems Identified/Issues Discussed: I reviewed recent notes and met with patient at bedside. Patient remains superficially oriented to month, year and circumstances. Grooming and hygiene are worsening. Patient has been refusing medications. He continues to appear disengaged with my questioning and affect remains odd, blunt and withdrawn. Thought blocking persists and his speech is still underproductive. His thoughts are still scattered and paranoia remains. Patient flatly continues to report that he is "doing better". He denies current discomfort or pain. Patient denies any hallucinations at this time and was not observed to be responding to internal stimuli during my interviews this weekend. Nonetheless he still keeps to himself and appears preoccupied. There were no major behavioral issues over the weekend. Diagnostic Results: Chronic Paranoid Schizophrenia Medication Change: No ( ) Medical Record Reviewed: Yes (notes, reports, labs, vitals) Mental Status Examination - Cognitive Function Orientation: Person, Place, Situation Memory: Impaired Attention: WNL Concentration: Poor Association: Loose Fund of Knowledge: Poor - Mood Mood: Neutral ("doing well, okay") - Affect Affect: Blunted (A LITTLE MORE REACTIVED AND ANIMATED SINCE ADMISSION) - Speech Speech: Soft - Formal Thought Process Formal Thought Process: Hallucinations (denied today), Delusions (NONE ELICITED HOWEVER PATIENT IS GUARDED), Paranoia (GUARDED BUT NO PARANOID DELUSIONS ELICITED), Loosening of associations (IMPROVING BUT STILL PERSISTS) - Suicidal Ideation Suicidal Ideation: No - Homicidal Ideation Homicidal Ideation: No Goal/Treatment Plan - Goal/Treatment Plan Need for Continued Stay: Remain at risks for inpatient hospitalization, Severe depression anxiety, Discharge may exacerbated symptoms, Severe functional impairment Progress Toward Problem(s) and Goals/Treatment Plan: * c/w current tx and plan, continue to encourage patient to comply with recommended treatment * Awaiting bed at [facility] [place] * Vitals reviewed and noted below: Selected Entries 09/14/16 09/15/16 08:52 06:00 Temperature 97.8 F 98.3 F Pulse Rate 93 H 82 Respiratory 16 20 Rate Blood Pressure 131/87 137/75 * New weekend labs noted below: Laboratory Results - last 72 hr 09/13/16 09/13/16 09/14/16 22:29 22:29 00:00 WBC 10.3 D RBC 4.76 Hgb 15.1 Hct 43.3 MCV 91.0 MCH 31.7 MCHC 34.9 RDW 12.8 Plt Count 195 MPV 10.9 Sodium 144 Potassium 3.8 Chloride 101 Carbon Dioxide 30 Anion Gap 17 BUN 11 Creatinine 1.0 Est GFR ( Amer) > 60 Est GFR (Non-Af Amer) > 60 Random Glucose 100 Calcium 9.7 Total Bilirubin 0.8 AST 17 ALT 30 Alkaline Phosphatase 56 Total Creatine Kinase 79 Total Protein 8.1 Albumin 4.5 Globulin 3.6 Albumin/Globulin Ratio 1.3 Urine Color Urine Appearance Urine pH Ur Specific [place] Urine Protein Urine Glucose (UA) Urine Ketones Urine Blood Urine Nitrate Urine Bilirubin Urine Urobilinogen Ur Leukocyte Esterase Urine Opiates Screen Negative Urine Methadone Screen Negative Ur Barbiturates Screen Negative Ur Phencyclidine Scrn Negative Ur Amphetamines Screen Negative U Benzodiazepines Scrn Negative U Oth Cocaine Metabols Negative U Cannabinoids Screen Negative 09/14/16 00:00 WBC RBC Hgb Hct MCV MCH MCHC RDW Plt Count MPV Sodium Potassium Chloride Carbon Dioxide Anion Gap BUN Creatinine Est GFR ( Amer) Est GFR (Non-Af Amer) Random Glucose Calcium Total Bilirubin AST ALT Alkaline Phosphatase Total Creatine Kinase Total Protein Albumin Globulin Albumin/Globulin Ratio Urine Color Yellow Urine Appearance Clear Urine pH 6.0 Ur Specific [place] 1.010 Urine Protein Negative Urine Glucose (UA) Negative Urine Ketones Negative Urine Blood Negative Urine Nitrate Negative Urine Bilirubin Negative Urine Urobilinogen 0.2 Ur Leukocyte Esterase Negative Urine Opiates Screen Urine Methadone Screen Ur Barbiturates Screen Ur Phencyclidine Scrn Ur Amphetamines Screen U Benzodiazepines Scrn U Oth Cocaine Metabols U Cannabinoids Screen Estimated Date of D/C: 09/16/16 (pt is improving but slowly, 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
[2016-09-15] MEDS: CO Q PO SCH ×3 (09:05→23:32)
[2016-09-15] MEDS: Ammonium Lactate 12% Cream (140 g) TOP SCH ×2 (09:05→17:46)
[2016-09-16 07:37] VITALS: RESP 20; TEMP 97.3
[2016-09-16] MEDS: Ammonium Lactate 12% Cream (140 g) TOP SCH ×2 (09:10→16:03)
[2016-09-16] MEDS: CO Q PO SCH ×2 (09:15→21:49)
--- NOTE | 2016-09-16 15:43 | PCM.PYCHPN ---
Psychiatric Progress Note - Psychiatric Progress Note Patient seen today, length of contact: 30 minutes Patient Chief Complaint: "I do not agree, I am hm...., as you see m,,hmm..." Problems Identified/Issues Discussed: Suicide/ homicide prevention, past psychiatric h/o, current psychiatric symptoms , medical problems, risk/benefits and alternatives of medications, medications compliance, coping strategies, substance abuse h/o, relapse prevention, importance of follow up with psychiatrist and therapist, discharge plan. Medical Problems: rhabdomyolisis improved Diagnostic Results: Lab Results 08/10/16 07:30: Fasting Glucose 90, Triglycerides 41, Cholesterol 106 L, LDL Cholesterol Direct 55, HDL Cholesterol 43, TSH 3rd Generation 0.86, RPR Nonreactive Vital Signs Temp Pulse Resp BP Pulse Ox 08/16/16 16:36 69 132/83 08/16/16 06:31 98.6 F 80 20 126/77 08/15/16 16:46 69 138/63 08/15/16 06:52 98.2 F 86 18 143/89 08/14/16 16:20 81 125/79 08/14/16 06:00 97.4 F L 69 18 120/84 08/13/16 16:44 73 147/86 08/13/16 06:38 98.2 F 83 19 138/82 08/12/16 14:00 61 123/80 08/12/16 06:53 97.8 F 61 16 99/63 L 100 08/11/16 14:00 79 136/90 08/11/16 06:00 97.9 F 60 16 114/75 08/10/16 16:22 69 120/85 08/10/16 06:00 97.9 F 57 L 16 116/69 08/09/16 21:06 20 Temp Pulse Resp BP Pulse Ox 97.1 F L 92 H 20 127/83 100 08/19/16 07:26 08/19/16 07:26 08/19/16 07:26 08/19/16 07:26 08/12/16 06:53 Temp Pulse Resp BP Pulse Ox 97.2 F L 80 20 117/61 100 08/21/16 07:27 08/21/16 07:27 08/21/16 07:27 08/21/16 07:27 08/12/16 06:53 Temp Pulse Resp BP Pulse Ox 97.7 F 92 H 20 142/92 H 100 08/22/16 06:34 08/22/16 06:34 08/22/16 06:34 08/22/16 06:34 08/12/16 06:53 Temp Pulse Resp BP Pulse Ox 97.2 F L 98 H 21 142/88 100 08/23/16 07:15 08/23/16 16:14 08/23/16 07:15 08/23/16 16:14 08/12/16 06:53 Temp Pulse Resp BP Pulse Ox 97.7 F 94 H 20 143/95 H 100 08/26/16 06:00 08/26/16 16:12 08/26/16 06:00 08/26/16 16:12 08/12/16 06:53 Temp Pulse Resp BP Pulse Ox 97.9 F 89 20 132/83 100 08/29/16 07:34 08/29/16 07:34 08/29/16 07:34 08/29/16 07:34 08/12/16 06:53 Temp Pulse Resp BP Pulse Ox 97.6 F 110 H 20 135/95 H 100 08/30/16 06:30 08/30/16 16:14 08/30/16 06:30 08/30/16 16:14 08/12/16 06:53 Temp Pulse Resp BP Pulse Ox 97.9 F 94 H 20 125/58 L 100 09/03/16 06:49 09/03/16 06:49 09/03/16 06:49 09/03/16 06:49 08/12/16 06:53 Temp Pulse Resp BP Pulse Ox 97.5 F L 103 H 20 134/65 100 09/05/16 07:14 09/05/16 07:14 09/05/16 07:14 09/05/16 07:14 08/12/16 06:53 Temp Pulse Resp BP Pulse Ox 97.8 F 113 H 20 133/65 100 09/09/16 06:46 09/09/16 15:53 09/09/16 06:46 09/09/16 15:53 08/12/16 06:53 Temp Pulse Resp BP Pulse Ox 97.5 F L 112 H 20 145/85 100 09/11/16 07:14 09/11/16 07:14 09/11/16 07:14 09/11/16 07:14 08/12/16 06:53 Temp Pulse Resp BP Pulse Ox 97.2 F L 105 H 22 135/94 H 100 09/13/16 07:14 09/13/16 16:40 09/13/16 07:14 09/13/16 16:40 08/12/16 06:53 Laboratory Last Values WBC 8.2 10^3/ul (4.5-11.0) 09/09/16 07:30 RBC 4.51 10^6/uL (3.5-6.1) 09/09/16 07:30 Hgb 14.0 gm/dL (14.0-18.0) 09/09/16 07:30 Hct 40.9 % (42.0-52.0) L 09/09/16 07:30 MCV 90.7 fL (80.0-105.0) 09/09/16 07:30 MCH 31.0 pg (25.0-35.0) 09/09/16 07:30 MCHC 34.2 g/dl (31.0-37.0) 09/09/16 07:30 RDW 13.2 % (11.5-14.5) 09/09/16 07:30 Plt Count 167 10^3/uL (120.0-450.0) 09/09/16 07:30 MPV 10.7 fl (7.0-11.0) 09/09/16 07:30 Gran % 70.8 % (50.0-68.0) H 09/09/16 07:30 Lymph % (Auto) 14.4 % (22.0-35.0) L 09/09/16 07:30 [place] % (Auto) 12.3 % (1.0-6.0) H 09/09/16 07:30 Eos % (Auto) 2.3 % (1.5-5.0) 09/09/16 07:30 Baso % (Auto) 0.2 % (0.0-3.0) 09/09/16 07:30 Gran # 5.82 (1.4-6.5) 09/09/16 07:30 Lymph # 1.2 (1.2-3.4) 09/09/16 07:30 [place] # 1.0 (0.1-0.6) H 09/09/16 07:30 Eos # 0.2 (0.0-0.7) 09/09/16 07:30 Baso # 0.02 K/mm3 (0.0-2.0) 09/09/16 07:30 Fasting Glucose 90 mg/dL (65-110) 08/10/16 07:30 Triglycerides 41 mg/dL (35-160) 08/10/16 07:30 Cholesterol 106 mg/dL (130-200) L 08/10/16 07:30 LDL Cholesterol Direct 55 mg/dL (0-129) 08/10/16:30 HDL Cholesterol 43 mg/dL (29-60) 08/10/16:30 TSH 3rd Generation 0.86 mIU/mL (0.46-4.68) 08/10/16 07:30 RPR Nonreactive (NONREACTIVE) 08/10/16 07:30 DSM 5 Symptoms Update: Patient is a 21-year-old single -[place] male with a history of paranoid schizophrenia, multiple psychiatric hospitalizations (though none noted at this facility) who presented to the emergency room on August 08, 2016 reporting increased paranoia. Patient was seen by overnight solutions development analyst who recommended patient be hospitalized for paranoia as he was notably thought-blocked, guarded and paranoid. pt also had impression that his identity was stolen and now he is a female by the name "". Patient refused to sign in for a voluntary admission and a screening was called. During this time his laboratory results returned which indicated markedly elevated total creatine kinase of 6814. Patient was admitted medically for rhabdomyolysis. Psychiatry followed patient on the medical floor for one day before patient was medically cleared and transferred to the psychiatric unit. patient still present to be psychotic, thought blocking, difficult to express himself, refused to take medications, taking medication there is sporadically, patient was evaluated by [facility], was accepted, at present moment patient is waiting for bed to be available. As per staff patient still refused to take shower, personal hygiene is poor. pt denied side effects, AIMS 0, no EPS, no tremor, no cogwheel rigidity . Diagnostic Results: Chronic Paranoid Schizophrenia Medication Change: No ( ) Medical Record Reviewed: Yes (notes, reports, labs, vitals) Consults ordered or reviewed: medical consult appreciated Mental Status Examination - Cognitive Function Orientation: Person, Place, Situation Memory: Impaired Attention: WNL Concentration: Poor Association: Loose Fund of Knowledge: Poor - Mood Mood: Neutral ("doing well, okay") - Affect Affect: Blunted (A LITTLE MORE REACTIVED AND ANIMATED SINCE ADMISSION) - Speech Speech: Soft - Formal Thought Process Formal Thought Process: Hallucinations (denied today), Delusions (NONE ELICITED HOWEVER PATIENT IS GUARDED), Paranoia (GUARDED BUT NO PARANOID DELUSIONS ELICITED), Loosening of associations (IMPROVING BUT STILL PERSISTS) - Suicidal Ideation Suicidal Ideation: No - Homicidal Ideation Homicidal Ideation: No Goal/Treatment Plan - Goal/Treatment Plan Need for Continued Stay: Remain at risks for inpatient hospitalization, Severe depression anxiety, Discharge may exacerbated symptoms, Severe functional impairment Progress Toward Problem(s) and Goals/Treatment Plan: milieu, structure, supportive therapy Clozaril was d/c, pt will be not compliant will monitor pulse, WNL ativan 0.5mg bid and 2mg at the nighttime for catatonia and anxiety Cogentin 3 mg po amhs for EPS thrilafon 16mg po amsh for psychosis Social work evaluation Medical consult appreciated We'll monitor closely it seems pt needs to be on two antipsychotics CoQ10 was started by neurology team Nrurontin 300mg hs as per neurology team collaterals appreciated, spoke to mom 09/13/16 Patient was screen by [facility], patient was accepted, at present moment patient awaiting for bed to be available. 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
[2016-09-16 16:19] VITALS: BP 128/82; PULSE 94
--- NOTE | 2016-09-17 16:51 | PCM.PYCHDC ---
Mental Status Examination - Mental Status Examination Orientation: Person, Place Memory: Impaired Mood: Depressed Affect: Constricted Attention: Poor Concentration: Poor Association: Loose Fund of Knowledge: Poor Formal Thought Process: Hallucinations, Delusions, Paranoia, Loosening of associations, Thought Broadcasting, Perservation Description of patient's judgement and insight: no insight Psychotic Thoughts and Behaviors: pt still delusional, paranoid Suicidal Ideation: No Current Homicidal Ideation?: No Plan: pt denied thoughts of harming self or others. Discharge Summary - Discharge Note Reason for Hospitalization: psychotic symptoms Psychiatric History (includes Medical, Family, Personal Hx): see HPI Laboratory Data: 09/13/16 22:29 09/13/16 22:29 Lab Results 09/14/16 00:00: Urine Color Yellow, Urine Appearance Clear, Urine pH 6.0, Ur Specific [place] 1.010, Urine Protein Negative, Urine Glucose (UA) Negative, Urine Ketones Negative, Urine Blood Negative, Urine Nitrate Negative, Urine Bilirubin Negative, Urine Urobilinogen 0.2, Ur Leukocyte Esterase Negative 09/14/16 00:00: Urine Opiates Screen Negative, Urine Methadone Screen Negative, Ur Barbiturates Screen Negative, Ur Phencyclidine Scrn Negative, Ur Amphetamines Screen Negative, U Benzodiazepines Scrn Negative, U Oth Cocaine Metabols Negative, U Cannabinoids Screen Negative 09/13/16 22:29: Sodium 144, Potassium 3.8, Chloride 101, Carbon Dioxide 30, Anion Gap 17, BUN 11, Creatinine 1.0, Est GFR ( Amer) > 60, Est GFR (Non- Af Amer) > 60, Random Glucose 100, Calcium 9.7, Total Bilirubin 0.8, AST 17, ALT 30, Alkaline Phosphatase 56, Total Creatine Kinase 79, Total Protein 8.1, Albumin 4.5, Globulin 3.6, Albumin/Globulin Ratio 1.3 09/13/16 22:29: WBC 10.3 D, RBC 4.76, Hgb 15.1, Hct 43.3, MCV 91.0, MCH 31.7, MCHC 34.9, RDW 12.8, Plt Count 195, MPV 10.9 09/09/16 07:30: WBC 8.2, RBC 4.51, Hgb 14.0, Hct 40.9 L, MCV 90.7, MCH 31.0, MCHC 34.2, RDW 13.2, Plt Count 167, MPV 10.7, Gran % 70.8 H, Lymph % (Auto) 14.4 L, [place] % (Auto) 12.3 H, Eos % (Auto) 2.3, Baso % (Auto) 0.2, Gran # 5.82, Lymph # 1.2, [place] # 1.0 H, Eos # 0.2, Baso # 0.02 09/02/16 07:00: WBC 7.7 D, RBC 4.69, Hgb 14.6, Hct 42.4, MCV 90.4, MCH 31.1, MCHC 34.4, RDW 12.5, Plt Count 176, MPV 11.3 H, Gran % 58.7, Lymph % (Auto) 25.3 , [place] % (Auto) 13.0 H, Eos % (Auto) 2.9, Baso % (Auto) 0.1, Gran # 4.52, Lymph # 2.0, [place] # 1.0 H, Eos # 0.2, Baso # 0.01 08/26/16 12:40: WBC 9.7 D, RBC 4.66, Hgb 14.6, Hct 42.1, MCV 90.3, MCH 31.3, MCHC 34.7, RDW 12.7, Plt Count 209, MPV 10.7, Gran % 73.2 H, Lymph % (Auto) 18.6 L, [place] % (Auto) 7.0 H, Eos % (Auto) 1.0 L, Baso % (Auto) 0.2, Gran # 7.13 H, Lymph # 1.8, [place] # 0.7 H, Eos # 0.1, Baso # 0.02 08/10/16 07:30: RPR Nonreactive 08/10/16 07:30: TSH 3rd Generation 0.86 08/10/16 07:30: Fasting Glucose 90, Triglycerides 41, Cholesterol 106 L, LDL Cholesterol Direct 55, HDL Cholesterol 43 Vital Signs Temp Pulse Resp BP Pulse Ox 09/16/16 16:17 94 H 128/82 09/16/16 07:36 97.3 F L 84 20 122/67 09/15/16 16:00 97.2 F L 75 16 120/64 09/15/16 06:00 98.3 F 82 20 137/75 09/14/16 08:52 97.8 F 93 H 16 131/87 09/13/16 22:05 98.2 F 94 H 18 125/84 09/13/16 16:40 105 H 135/94 H 09/13/16 07:14 97.2 F L 119 H 22 135/82 09/12/16 16:00 119 H 137/89 09/11/16 16:49 111 H 138/96 H 09/11/16 07:14 97.5 F L 112 H 20 145/85 09/10/16 16:00 111 H 138/91 H 09/10/16 07:35 97.5 F L 90 20 133/92 H 09/09/16 15:53 113 H 133/65 09/09/16 06:46 97.8 F 95 H 20 141/90 09/08/16 16:00 118 H 147/102 H 09/08/16 07:04 98.2 F 105 H 20 135/82 09/07/16 16:44 94 H 135/88 09/07/16 07:39 97.0 F L 79 20 134/88 09/06/16 16:29 114 H 139/86 09/06/16 09:39 98.1 F 94 H 20 131/75 09/05/16 16:00 101 H 141/96 H 09/05/16 07:14 97.5 F L 103 H 20 134/65 09/04/16 18:25 92 H 146/99 H 09/04/16 07:17 97.7 F 78 20 120/82 09/03/16 15:48 109 H 136/92 H 09/03/16 06:49 97.9 F 94 H 20 125/58 L 09/02/16 16:23 103 H 139/88 09/02/16 07:23 97.4 F L 83 20 134/77 09/01/16 21:08 147/92 H 09/01/16 07:37 97.9 F 91 H 20 137/91 H 08/31/16 06:38 98.2 F 93 H 20 133/68 08/30/16 16:14 110 H 135/95 H 08/30/16 06:30 97.6 F 111 H 20 135/92 H 08/29/16 17:22 109 H 20 125/60 08/29/16 07:34 97.9 F 89 20 132/83 08/28/16 16:39 108 H 20 141/95 H 08/28/16 07:26 97.6 F 87 20 149/97 H 08/27/16 15:58 87 117/72 08/27/16 07:06 97.7 F 86 20 133/83 08/26/16 16:12 94 H 143/95 H 08/26/16 06:00 97.7 F 89 20 141/88 08/25/16 16:25 80 135/90 08/25/16 07:27 97.8 F 87 18 137/82 08/24/16 16:00 111 H 139/95 H 08/24/16 06:21 97.7 F 75 20 158/93 H 08/23/16 16:14 98 H 142/88 08/23/16 07:15 97.2 F L 79 21 117/81 08/22/16 16:07 84 144/98 H 08/22/16 06:34 97.7 F 92 H 20 142/92 H 08/21/16 16:00 81 136/84 08/21/16 07:27 97.2 F L 80 20 117/61 08/20/16 16:10 74 144/87 08/20/16 06:00 98.2 F 78 20 123/79 08/19/16 16:00 91 H 126/83 08/19/16 07:26 97.1 F L 92 H 20 127/83 08/18/16 18:15 80 120/76 08/18/16 06:29 97.8 F 82 20 124/78 08/17/16 17:54 75 131/70 08/17/16 06:00 98.2 F 59 L 20 121/86 08/17/16 05:25 69 132/83 08/16/16 16:36 69 132/83 08/16/16 06:31 98.6 F 80 20 126/77 08/15/16 16:46 69 138/63 08/15/16 06:52 98.2 F 86 18 143/89 08/14/16 16:20 81 125/79 08/14/16 06:00 97.4 F L 69 18 120/84 08/13/16 16:44 73 147/86 08/13/16 06:38 98.2 F 83 19 138/82 08/12/16 14:00 61 123/80 08/12/16 06:53 97.8 F 61 16 99/63 L 100 08/11/16 14:00 79 136/90 08/11/16 06:00 97.9 F 60 16 114/75 08/10/16 16:22 69 120/85 08/10/16 06:00 97.9 F 57 L 16 116/69 08/09/16 21:06 20 Consultations:: List each consultation separately and include: 1. Reason for request. 2. Findings. 3. Follow-up Consultations: medical consult appreciated Summary of Hospital Course include:: 1. Description of specific treatment plan utilized for patients during their course of treatmen. 2. Summarize the time- course for resolution of acute symptoms and/or regressed behaviors. 3. Describe issues identified and worked on during hospitalization. 4. Describe medication utilized. 5. Describe medical problems identified and treated. 6. Reassessment of suicide risk Summary of Hospital Course: Patient is a 21-year-old single -Turkish male with a history of paranoid schizophrenia, multiple psychiatric hospitalizations (though none noted at this facility) who presented to the emergency room on August 08, 2016 reporting increased paranoia. Patient was seen by overnight cytotechnologist who recommended patient be hospitalized for paranoia as he was notably thought-blocked, guarded and paranoid. pt also had impression that his identity was stolen and now he is a female by the name "". Patient refused to sign in for a voluntary admission and a screening was called. During this time his laboratory results returned which indicated markedly elevated total creatine kinase of 6814. Patient was admitted medically for rhabdomyolysis. Psychiatry followed patient on the medical floor for one day before patient was medically cleared and transferred to the psychiatric unit. 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 This creative services writer tried zyprexa, max dose and pt was not improving pt was started on prolixin, was not improving pt was having severe EPS on Risperdal then this creative services writer implemented clozaril, pt was on 300mg daily but still was not improving, moreover on clozaril pt has side effect of tachycardia and pt was not improving either, was not showering, had thought process disorganized, still paranoid, severe thought blocking, this creative services writer also had concerns about compliance with clozaril pt was educated about Trilafon, pt was started on this medication 09/10/16, pt started to show some improvements with his symptoms, thought process became little more organized, but unfortunately staff contacted this creative services writer 09/12/16 at 7pm reporting pt submitted 48hr notice. This creative services writer spoke to the pt today during the treatment team, pt was educated about tx plan and tapering dose of clozaril and titration of Trilafon, pt was argumentative, refused taking medications since this morning, refused to rescinded 48 hr notice. Pt presented to have disorganized thought process, pt has poverty of thoughts and speech, pt also has difficulties to express himself , pt was not showering, refusing to take medications. This write contacted pt's mother Lexus [phone], educated about the tx plan , pt's mother also feels pt might benefit from staying in the hospital longer. pt refused to rescind 48hr notice requested to speak to his father, after that pt refused to take medications and refused to take meds. at this time this creative services writer has no other choice than call [facility] for screening process. pt denied side effects, AIMS 0, no EPS, no tremor, no cogwheel rigidity . patient was screened by [facility], was accepted. Patient was transferred for further evaluation and stabilization under involuntary status and [facility]. - Diagnosis (1) Paranoid schizophrenia Status: Acute - Final Diagnosis (DSM 5) Condition upon Discharge: GUARDED Disposition: Transfer [facility] Follow-up Treatment Plan: milieu, structure, supportive therapy Clozaril was d/c, pt will be not compliant will monitor pulse, WNL ativan 0.5mg bid and 2mg at the nighttime for catatonia and anxiety Cogentin 3 mg po amhs for EPS thrilafon 16mg po amsh for psychosis Social work evaluation Medical consult appreciated We'll monitor closely it seems pt needs to be on two antipsychotics CoQ10 was started by neurology team Nrurontin 300mg hs as per neurology team collaterals appreciated, spoke to mom 09/13/16 Patient was screen by [facility], patient was accepted, at present moment patient awaiting for bed to be available. Prescriptions/Medication Reconciliation: Benztropine [Benztropine Mesylate] 1 mg PO AMHS #30 tab Benztropine [Benztropine Mesylate] 2 mg PO AMHS #30 tab Gabapentin [Neurontin] 400 mg PO HS #14 cap LORazepam [Ativan] 2 mg PO HS #14 tab LORazepam [Ativan] 0.5 mg PO BID #30 tab Perphenazine 16 mg PO AMHS #90 tab - Smoking Cessation Smoking Cessation Medication prescribed: No Reason for not providing: pt does not smoke - Antipsychotic Medications Pt discharged on 2 or more routine antipsychotic medications: No - Justification for 2 or more meds Augmentation of Clozapine: Yes (but did not tolerated well)
== END 2016-09-17 00:50 | DRG 430 ==
LOC: PSYC 20:01
PROVIDERS: ADMIT Psychologist; ATTEND Psychiatry & Neurology Psychiatry
PROC: GZ3ZZZZ Medication Management (ICD-10-PCS; principal; 2016-08-09)
PROC: 0HDNXZZ Extraction of Left Foot Skin, External Approach (ICD-10-PCS; 2016-08-24)
PROC: 0HDMXZZ Extraction of Right Foot Skin, External Approach (ICD-10-PCS; 2016-08-24)
DX: F20.0 Paranoid schizophrenia (principal); M62.82 Rhabdomyolysis; L84 Corns and callosities; M43.6 Torticollis; F32.9 Major depressive disorder, single episode, unspecified; Z91.14 Patient's other noncompliance with medication regimen

== ENCOUNTER 2017-10-29 04:55 | Emergency (ER) | payer MEDICAID ==
[2017-10-29 04:56] VITALS: BMI 20.5
[2017-10-29 05:12] VITALS: TEMP 98.2
--- NOTE | 2017-10-29 06:10 | ED PDOC ---
Arrival/HPI - General Chief Complaint: Psychiatric Evaluation Time Seen by Provider: 10/29/17 06:01 Historian: Patient - History of Present Illness Narrative History of Present Illness (Text): 10/29/17 06:07 22 year old male, with past medical history of paranoid schizophrenia, presents to the Emergency department complaining of anxiety since prior to arrival. Patient states he was feeling anxious earlier today prompting him to present to the Emergency department for medical evaluation. However, upon arrival, his symptoms spontaneously resolved and patient states he currently feels fine. Patient states he does not want to see a psychiatrist or speak to a social media editor. Patient denies any suicidal or homicidal ideation. Patient denies any fever, chills, nausea, vomiting, diarrhea, abdominal pain, chest pain, shortness of breath or any other complaints. Patient is currently resting comfortably in bed expressing no acute distress. Time/Duration: Prior to Arrival Symptom Onset: Gradual Symptom Course: Resolved Activities at Onset: Light Context: Home Past Medical History - Provider Review Nursing Documentation Reviewed: Yes - Infectious Disease Hx of Infectious Diseases: None - Tetanus Immunization Tetanus Immunization: Unknown - Cardiac Hx Cardiac Disorders: No Hx Hypertension: No - Pulmonary Hx Tuberculosis: No - Neurological HX Cerebrovascular Accident: No Hx Seizures: No - HEENT Hx HEENT Disorder: No - Renal Hx Renal Disorder: No - Endocrine/Metabolic Hx Endocrine Disorders: No - Hematological/Oncological Hx Blood Disorders: No Hx Cancer: No - Integumentary Hx Dermatological Disorder: No - Musculoskeletal/Rheumatological Hx Musculoskeletal Disorders: No Hx Falls: No - Gastrointestinal Hx Gastrointestinal Disorders: No - Genitourinary/Gynecological Hx Genitourinary Disorders: No Hx Sexually Transmitted Diseases: No - Psychiatric Hx Physical Abuse: No Hx Schizophrenia: Yes Hx Substance Use: No - Anesthesia Hx Anesthesia: No Family/Social History - Physician Review Nursing Documentation Reviewed: Yes Family/Social History: No Known Family HX Smoking Status: Never Smoked Hx Alcohol Use: No Hx Substance Use: No Allergies/Home Meds Allergies/Adverse Reactions: Allergies No Known Allergies Allergy (Verified 08/09/16 20:59) Review of Systems - Physician Review All systems were reviewed & negative as marked: Yes - Review of Systems Constitutional: Normal. absent: Fevers Eyes: Normal ENT: Normal Respiratory: Normal. absent: SOB, Cough Cardiovascular: Normal. absent: Chest Pain Gastrointestinal: Normal. absent: Abdominal Pain, Diarrhea, Nausea, Vomiting Genitourinary Male: Normal Musculoskeletal: Normal Skin: Normal Neurological: Normal Endocrine: Normal Hemo/Lymphatic: Normal Psychiatric: Normal. absent: Anxiety, Suicidal Ideation Physical Exam Vital Signs Reviewed: Yes Vital Signs Temp Pulse Resp BP Pulse Ox 10/29/17 06:12 96 H 17 117/60 100 10/29/17 05:00 98.2 F 117 H 18 122/68 99 Temperature: Afebrile Blood Pressure: Normal Pulse: Tachycardic Respiratory Rate: Normal Appearance: Positive for: Well-Appearing, Non-Toxic, Comfortable Pain Distress: None Mental Status: Positive for: Alert and Oriented X 3 - Systems Exam Head: Present: Atraumatic, Normocephalic Pupils: Present: PERRL Extroacular Muscles: Present: EOMI Conjunctiva: Present: Normal Mouth: Present: Moist Mucous Membranes Neck: Present: Normal Range of Motion Respiratory/Chest: Present: Clear to Auscultation, Good Air Exchange. No: Respiratory Distress, Accessory Muscle Use Cardiovascular: Present: Regular Rate and Rhythm, Normal S1, S2. No: Murmurs Abdomen: No: Tenderness, Distention, Peritoneal Signs Back: Present: Normal Inspection Upper Extremity: Present: Normal Inspection. No: Cyanosis, Edema Lower Extremity: Present: Normal Inspection. No: Edema Neurological: Present: GCS=15, CN II-XII Intact, Speech Normal Skin: Present: Warm, Dry, Normal Color. No: Rashes Psychiatric: Present: Alert, Oriented x 3, Normal Insight, Normal Concentration. No: Suicidal Ideation, Homicidal Ideation Medical Decision Making ED Course and Treatment: 10/29/17 06:11 Impression: 22 year old male presents to the Emergency department for anxiety. Plan: -- Reassess and disposition Prior Visits: Notes and results from previous visits were reviewed. Progress Notes: - Scribe Statement The provider has reviewed the documentation as recorded by the Scribe Prakash Weeks. All medical record entries made by the Scribe were at my direction and personally dictated by me. I have reviewed the chart and agree that the record accurately reflects my personal performance of the history, physical exam, medical decision making, and the department course for this patient. I have also personally directed, reviewed, and agree with the discharge instructions and disposition. Disposition/Present on Arrival - Present on Arrival Any Indicators Present on Arrival: No History of DVT/PE: No History of Uncontrolled Diabetes: No Urinary Catheter: No History of Decub. Ulcer: No History Surgical Site Infection Following: None - Disposition Have Diagnosis and Disposition been Completed?: Yes Diagnosis: Anxiety Disposition: HOME/ ROUTINE Disposition Time: 06:40 Condition: GOOD Discharge Instructions (ExitCare): Anxiety, Adult (DC) Referrals: [id number] [Other] - Follow up with primary Forms: [employer] (Wol[place])
[2017-10-29 06:15] VITALS: BP 117/60; PULSE 96; RESP 17; O2SAT 100
== END 2017-10-29 06:02 | disposition home or self-care (01) ==
LOC: ED 04:55
DX: F41.9 Anxiety disorder, unspecified (principal)